=== PATIENT | male | born 1975 | race American Indian/Alaskan Native ===

== ENCOUNTER 2016-05-23 19:48 | Observation (INO) | payer OTHER ==
[2016-05-23 19:48] VITALS: BMI 37.2
[2016-05-23 20:16] VITALS: TEMP 97.5; O2SAT 95
[2016-05-23] MEDS ORDERED: HYDROmorphone 2 mg/ml ISec IVP STA ×2 (20:38→21:26)
[2016-05-23] MEDS ORDERED: Sodium Chloride 0.9% 1,000 ML IV STA (20:38)
--- NOTE | 2016-05-23 20:45 | ED PDOC ---
Arrival/HPI - General Chief Complaint: Abdominal Pain Time Seen by Provider: 05/23/16 20:30 Historian: Patient - History of Present Illness Narrative History of Present Illness (Text): 05/23/16 20:42 Patient is a 40 yo male with past medical history of autoimmune cholecystitis followed by specialists at [facility] previously on prednisone, presents to ED with history of sudden onset of diffuse abdominal pain last night , worse today associated with nausea and vomiting. Patient denies fever. Reports some loose stools. Denies chest pain or shortness of breath. Denies bloody urine or stool. Time/Duration: Prior to Arrival Symptom Onset: Gradual Past Medical History - Past History Past History: Non-Contributing - Infectious Disease Hx of Infectious Diseases: None - Tetanus Immunization Tetanus Immunization: Unknown - Reproductive Currently : No - Past Medical History Past Medical History: No Previous - Cardiac Hx Pacemaker: No - Pulmonary Hx Asthma: Yes - Neurological Hx Neurological Disorder: No - HEENT Hx HEENT Disorder: No - Renal Hx Renal Disorder: No - Endocrine/Metabolic Hx Endocrine Disorders: No Other/Comment: Inflammation of the pancreas and L side of the Liver - Hematological/Oncological Hx Anemia: Yes - Integumentary Hx Dermatological Disorder: No - Musculoskeletal/Rheumatological Hx Musculoskeletal Disorders: No Hx Falls: No - Gastrointestinal Hx Gall Bladder Disease: Yes (LAP ALTAGRACIA ON 06/06/15) Hx Pancreatitis: Yes Other/Comment: mass on the pancrease,liver disease - Genitourinary/Gynecological Hx Genitourinary Disorders: No - Psychiatric Hx Emotional Abuse: No Hx Physical Abuse: No Hx Substance Use: No - Past Surgical History Past Surgical History: No Previous - Surgical History Hx Cholecystectomy: Yes - Anesthesia Hx Anesthesia: Yes Hx Anesthesia Reactions: No Hx Malignant Hyperthermia: No - Suicidal Assessment Feels Threatened In Home Enviroment: No Family/Social History Family/Social History: Unknown Family HX Smoking Status: Never Smoked Hx Alcohol Use: No Hx Substance Use: No Hx Substance Use Treatment: No Allergies/Home Meds Allergies/Adverse Reactions: Allergies No Known Allergies Allergy (Verified 01/29/16 07:14) Home Medications: Home Meds Medication Instructions Recorded Confirmed Cholecalciferol (Vitamin D3) 50,000 iu PO SUN 04/28/15 01/29/16 [Vitamin D3] Ursodiol 300 mg PO BID 08/21/15 01/29/16 Prednisone [Gregorio] 5 mg PO DAILY 12/18/15 01/29/16 Azathioprine [Azasan] 50 mg PO DAILY 01/29/16 01/29/16 oxyCODONE [oxyCODONE Immediate 5 mg PO PRN PRN 01/29/16 01/29/16 Release Tab] Review of Systems - Review of Systems Constitutional: Fatigue. absent: Fevers Eyes: absent: Vision Changes Respiratory: absent: SOB Cardiovascular: absent: Chest Pain Gastrointestinal: Abdominal Pain, Diarrhea, Nausea, Vomiting, Appetite Changes. absent: Constipation, Hematochezia, Hematemesis Genitourinary Male: absent: Dysuria Musculoskeletal: absent: Back Pain Skin: absent: Rash Neurological: absent: Headache, Dizziness Endocrine: absent: Polyuria Hemo/Lymphatic: absent: Easy Bleeding Physical Exam Vital Signs Reviewed: Yes Vital Signs Temp Pulse Resp BP Pulse Ox 05/23/16 20:13 97.5 F L 119 H 18 163/96 H 95 Temperature: Afebrile Pulse: Tachycardic Pain Distress: Moderate Mental Status: Positive for: Alert and Oriented X 3 - Systems Exam Head: Present: Atraumatic Pupils: Present: PERRL Extroacular Muscles: Present: EOMI Mouth: Present: Moist Mucous Membranes Pharnyx: No: ERYTHEMA Nose (Internal): Present: Normal Inspection Neck: Present: Normal Range of Motion. No: Meningeal Signs Respiratory/Chest: Present: Clear to Auscultation. No: Respiratory Distress Cardiovascular: Present: Regular Rate and Rhythm Abdomen: Present: Tenderness, Distention. No: Peritoneal Signs Rectal: No: Gross Blood Back: No: CVA Tenderness Upper Extremity: No: Cyanosis, Edema Lower Extremity: No: Edema Neurological: Present: Motor Func Grossly Intact, Normal Sensory Function Skin: Present: Diaphoretic Psychiatric: Present: Alert Medical Decision Making ED Course and Treatment: 05/23/16 23:04 Patient's prior history and consultations reviewed. He states that he has not typically had vomiting like this in past. IV fluids, dialudid given. Pain persistent and persistent vomiting. Additional iv pain meds and zofran given with improved but persistent symptoms. Re-exam, persistent upper abdominal pain , given change in character and severity of pain from previous, ct ordered. Re-exam, heart rate is 98, patient more comfortable. Case endorsed to Dr. Carter pending ct and re-evaluation. - Lab Interpretations Lab Results: 05/23/16 20:50 05/23/16 20:50 Lab Results 05/23/16 20:50: WBC 8.5, RBC 4.76, Hgb 13.9 L, Hct 42.3, MCV 88.9, MCH 29.2, MCHC 32.9, RDW 14.4, Plt Count 313, MPV 9.5, Gran % 75.5 H, Lymph % (Auto) 19.1 L, [place] % (Auto) 5.1, Eos % (Auto) 0.2 L, Baso % (Auto) 0.1, Gran # 6.38, Lymph # 1.6, [place] # 0.4, Eos # 0.0, Baso # 0.01, PT 11.5, INR 1.06, APTT 27.0, pO2 33 , VBG pH 7.39, VBG pCO2 47.0, VBG HCO3 28.5 H, VBG Total CO2 29.9 H, VBG O2 Sat (Calc) 61.2, VBG Base Excess 2.8 H, VBG Potassium 3.8, Glucose 95, Lactate 1.1, FiO2 21.0, Sodium 140.0, Potassium 3.9, Chloride 105.0, Carbon Dioxide 29, Anion Gap 15, BUN 20, Creatinine 1.2, Est GFR ( Amer) > 60, Est GFR (Non- Af Amer) > 60, Random Glucose 102, Calcium 9.5, Total Bilirubin 1.1, AST 40, ALT 24, Alkaline Phosphatase 138 H, Lactate Dehydrogenase 586, Total Creatine Kinase 108, Troponin I < 0.01, Total Protein 8.9 H, Albumin 4.2, Globulin 4.7, Albumin/Globulin Ratio 0.9 L, Amylase 89, Lipase 85, Venous Blood Potassium 3.8 - RAD Interpretation Narrative RAD Interpretations (Text): 05/23/16 23:07 cxr nad Radiology Orders: 05/23/16 20:38 CHEST PORTABLE [RAD] Stat 05/23/16 21:26 ABD & PELVIS IV CONTRAST ONLY [CT] Stat Realtime Court Reporter: ED Physician - EKG Interpretation EKG Interpretation (Text): 05/23/16 23:06 EKG at 21:39 sinus tachycardia rate of 102 05/23/16 23:07 Interpreted by ED Physician: Yes Type: 12 lead EKG - Medication Orders Current Medication Orders: Discontinued Medications Famotidine (Pepcid) 20 mg IVP STAT STA Stop: 05/23/16 21:05 Last Admin: 05/23/16 21:14 Dose: 20 MG IVP Administration Document 05/23/16 21:14 RD (Rec: 05/23/16 21:14 RD [id number]) Charges for Administration # of IVP Administrations 1 Hydromorphone HCl (Dilaudid) 2 mg IVP STAT STA Stop: 05/23/16 20:39 Last Admin: 05/23/16 21:02 Dose: 2 MG IVP Administration Document 05/23/16 21:02 RD (Rec: 05/23/16 21:02 RD [id number]) Charges for Administration # of IVP Administrations 1 Hydromorphone HCl (Dilaudid) 2 mg IVP STAT STA Stop: 05/23/16 21:27 Last Admin: 05/23/16 22:44 Dose: 2 MG IVP Administration Document 05/23/16 22:44 RD (Rec: 05/23/16 22:44 RD [id number]) Charges for Administration # of IVP Administrations 1 Sodium Chloride (Sodium Chloride 0.9%) 1,000 mls @ 1,000 mls/hr IV .Q1H STA Stop: 05/23/16 21:37 Last Admin: 05/23/16 20:52 Dose: 1,000 MLS/HR eMAR Start Stop Document 05/23/16 20:52 RD (Rec: 05/23/16 20:52 RD [id number]) Intravenous Solution Start Date 05/23/16 Start Time 20:52 End Date 05/23/16 End time 21:52 Total Infusion Time 60 Iohexol (Omnipaque 350 100 Ml) Confirm Administered Dose 350 mg .ROUTE .STK-MED ONE Stop: 05/23/16 21:39 Ondansetron HCl (Zofran Inj) 4 mg IVP ONCE ONE Stop: 05/23/16 20:39 Last Admin: 05/23/16 21:03 Dose: Ondansetron HCl (Zofran Inj) Confirm Administered Dose 4 mg .ROUTE .STK-MED ONE Stop: 05/23/16 20:38 Last Admin: 05/23/16 20:52 Dose: 4 MG Ondansetron HCl (Zofran Inj) 4 mg IVP ONCE ONE Stop: 05/23/16 21:27 Last Admin: 05/23/16 21:30 Dose: 4 MG IVP Administration Document 05/23/16 21:30 RD (Rec: 05/23/16 21:30 RD [id number]) Charges for Administration # of IVP Administrations 1 Disposition/Present on Arrival - Present on Arrival Any Indicators Present on Arrival: No History of DVT/PE: No History of Uncontrolled Diabetes: No Urinary Catheter: No History of Decub. Ulcer: No History Surgical Site Infection Following: None - Disposition Have Diagnosis and Disposition been Completed?: Yes Diagnosis: Abdominal pain Disposition Time: 23:00 Patient Plan: Observation Patient Problems: Current Active Problems Problem Status Diagnosed Abdominal pain Acute Condition: FAIR Referrals: Jose Carson MD [Primary Care Provider] - Follow up with primary
[2016-05-23 21:06] LABS: ADD MANUAL DIFF? NO
[2016-05-23 21:13] LABS: VENOUS BLOOD GAS BASE EXCESS 2.8 mmol/L (0.0-2.0); VENOUS BLOOD PH 7.39 (7.32-7.43)
[2016-05-23 21:15] LABS: BASO # 0.01 K/mm3 (0.0-2.0); BASO % 0.1 % (0.0-3.0); EOS % 0.2 % (1.5-5.0); GRAN # 6.38 (1.4-6.5); GRAN % 75.5 % (50.0-68.0); HEMATOCRIT 42.3 % (42.0-52.0); LYMPH # 1.6 (1.2-3.4); LYMPH % 19.1 % (22.0-35.0); MEAN CELL VOLUME 88.9 fL (80.0-105.0); MEAN CORPUSCULAR HEMOGLOBIN 29.2 pg (25.0-35.0); MEAN CORPUSCULAR HGB CONC 32.9 g/dl (31.0-37.0); MEAN PLATELET VOLUME 9.5 fl (7.0-11.0); MONO # 0.4 (0.1-0.6); MONO % 5.1 % (1.0-6.0); PLATELET COUNT 313 10^3/uL (120.0-450.0); RED CELL DISTRIBUTION WIDTH 14.4 % (11.5-14.5); WHITE BLOOD COUNT 8.5 10^3/ul (4.5-11.0)
[2016-05-23 21:22] LABS: ALB/GLOB RATIO 0.9 (1.1-1.8); ALKALINE PHOSPHATASE 138 U/L (38-133); ALT/SGPT 24 U/L (7-56); AMYLASE 89 U/L (35-125); AST/SGOT 40 U/L (15-59); BILIRUBIN,TOTAL 1.1 mg/dL (0.2-1.3); BLOOD UREA NITROGEN 20 mg/dL (7-21); CALCIUM 9.5 mg/dL (8.4-10.5); CARBON DIOXIDE 29 mmol/L (21-33); CHLORIDE 99 mmol/L (98-107); GFR AFRICAN-AMERICAN > 60; GLUCOSE,RANDOM 102 mg/dL (70-110); LIPASE 85 U/L (23-300); POTASSIUM 3.9 mmol/L (3.6-5.0); SODIUM 139 mmol/L (132-148); TOTAL PROTEIN 8.9 g/dL (5.8-8.3)
[2016-05-23 21:23] LABS: INR 1.06 (0.93-1.08)
[2016-05-23 21:36] LABS: TROPONIN I < 0.01 ng/mL
[2016-05-23] MEDS ORDERED: Iohexol 350 MG/100 ML VIAL ONE (21:38)
[2016-05-24 00:03] VITALS: RESP 16
--- NOTE | 2016-05-24 02:49 | CT ---
EXAM: CT Abdomen and Pelvis With Intravenous Contrast CLINICAL HISTORY: 40 years old, male; Pain; Abdominal pain; Additional info: Severe diffuse abdominal pain TECHNIQUE: Axial computed tomography images of the abdomen and pelvis with intravenous contrast. This CT exam was performed using one or more of the following dose reduction techniques: automated exposure control, adjustment of the mA and/or kV according to patient size, and/or use of iterative reconstruction technique. Coronal and sagittal reformatted images were created and reviewed. CONTRAST: 100 mL of OMNIPAQUE administered intravenously. EXAM DATE/TIME: 05/23/2016 9:26 PM COMPARISON: Prior CT scans of 02/24/2016 and 09/04/2015. FINDINGS: LOWER THORAX: No infiltrate seen in the lung bases. ABDOMEN: LIVER: Abnormal enhancement pattern of the left lobe of the liver. There are branching areas of decreased enhancement throughout the left lobe of the liver, suspicious for periportal edema. There is a small amount of free fluid abutting the liver anteriorly. Liver has a mildly nodular contour, suspicious for cirrhotic change, and the portal vein is mildly enlarged, measuring 1.8 cm in diameter, findings which are suspicion for portal hypertension. No definite focal, measurable liver lesion is seen. Portal vein appears to be patent. GALLBLADDER AND BILE DUCTS: Cholecystectomy clips. Biliary ductal dilatation, which may be related to the post cholecystectomy state. No radiopaque common bile duct stones are visualized. Recommend correlation with LFTs as clinically indicated. PANCREAS: No CT evidence of acute pancreatitis. SPLEEN: No acute abnormality of the spleen identified. ADRENALS: No acute abnormality of the adrenal glands identified. KIDNEYS AND URETERS: No acute abnormality of the kidneys identified. No evidence of significant hydrouereteronephrosis. STOMACH AND BOWEL: Colon is fluid-filled, without evidence of significant wall thickening or dilatation. This finding can be seen in the setting of diarrhea. No acute abnormality of the stomach or duodenum identified. No evidence of small bowel obstruction. APPENDIX: Appendix is seen, and is within normal limits in appearance. PELVIS: BLADDER: No acute abnormality of the bladder identified. REPRODUCTIVE: No acute abnormality of the reproductive organs is seen. ABDOMEN and PELVIS: INTRAPERITONEAL SPACE: See above. No evidence of free air. Negative. BONES/JOINTS: No acute fractures or other acute bony abnormality noted. SOFT TISSUES: Fat-containing inguinal hernia on the left. Small umbilical hernia, containing only fat. VASCULATURE: No evidence of abdominal aortic aneurysm or dissection. LYMPH NODES: No evidence of diffuse lymphadenopathy. IMPRESSION: - Abnormal enhancement pattern in the left lobe of the liver, suspicious for focal periportal edema. There is a small amount of nearby perihepatic free fluid. In an acute setting, the findings could be secondary to acute hepatitis. Recommend correlation with LFTs for laboratory evidence of acute liver disease. There are also findings suspicious for underlying portal hypertension. - Biliary ductal dilatation, which may be related to the post cholecystectomy state. - See above for remaining findings.
[2016-05-24 04:11] VITALS: BP 152/98; PULSE 104
--- NOTE | 2016-05-24 05:41 | ED PDOC ---
Physical Exam Vital Signs Temp Pulse Resp BP Pulse Ox 05/24/16 04:10 104 H 16 152/98 H 95 05/24/16 00:02 115 H 16 148/92 H 95 05/23/16 20:13 97.5 F L 119 H 18 163/96 H 95 Medical Decision Making ED Course and Treatment: 05/23/16 23:15 Case signed out to me by Dr. Key, pending CT scan and reevaluation. - Lab Interpretations Lab Results: 05/23/16 20:50 05/23/16 20:50 Lab Results 05/23/16 20:50: WBC 8.5, RBC 4.76, Hgb 13.9 L, Hct 42.3, MCV 88.9, MCH 29.2, MCHC 32.9, RDW 14.4, Plt Count 313, MPV 9.5, Gran % 75.5 H, Lymph % (Auto) 19.1 L, [place] % (Auto) 5.1, Eos % (Auto) 0.2 L, Baso % (Auto) 0.1, Gran # 6.38, Lymph # 1.6, [place] # 0.4, Eos # 0.0, Baso # 0.01, PT 11.5, INR 1.06, APTT 27.0, pO2 33 , VBG pH 7.39, VBG pCO2 47.0, VBG HCO3 28.5 H, VBG Total CO2 29.9 H, VBG O2 Sat (Calc) 61.2, VBG Base Excess 2.8 H, VBG Potassium 3.8, Glucose 95, Lactate 1.1, FiO2 21.0, Sodium 140.0, Potassium 3.9, Chloride 105.0, Carbon Dioxide 29, Anion Gap 15, BUN 20, Creatinine 1.2, Est GFR ( Amer) > 60, Est GFR (Non- Af Amer) > 60, Random Glucose 102, Calcium 9.5, Total Bilirubin 1.1, AST 40, ALT 24, Alkaline Phosphatase 138 H, Lactate Dehydrogenase 586, Total Creatine Kinase 108, Troponin I < 0.01, Total Protein 8.9 H, Albumin 4.2, Globulin 4.7, Albumin/Globulin Ratio 0.9 L, Amylase 89, Lipase 85, Venous Blood Potassium 3.8 - RAD Interpretation Radiology Orders: 05/23/16 20:38 CHEST PORTABLE [RAD] Stat 05/23/16 21:26 ABD & PELVIS IV CONTRAST ONLY [CT] Stat - Medication Orders Current Medication Orders: Discontinued Medications Famotidine (Pepcid) 20 mg IVP STAT STA Stop: 05/23/16 21:05 Last Admin: 05/23/16 21:14 Dose: 20 MG IVP Administration Document 05/23/16 21:14 RD (Rec: 05/23/16 21:14 RD [id number]) Charges for Administration # of IVP Administrations 1 Hydromorphone HCl (Dilaudid) 2 mg IVP STAT STA Stop: 05/23/16 20:39 Last Admin: 05/23/16 21:02 Dose: 2 MG IVP Administration Document 05/23/16 21:02 RD (Rec: 05/23/16 21:02 RD [id number]) Charges for Administration # of IVP Administrations 1 Hydromorphone HCl (Dilaudid) 2 mg IVP STAT STA Stop: 05/23/16 21:27 Last Admin: 05/23/16 22:44 Dose: 2 MG IVP Administration Document 05/23/16 22:44 RD (Rec: 05/23/16 22:44 RD [id number]) Charges for Administration # of IVP Administrations 1 Sodium Chloride (Sodium Chloride 0.9%) 1,000 mls @ 1,000 mls/hr IV .Q1H STA Stop: 05/23/16 21:37 Last Admin: 05/23/16 20:52 Dose: 1,000 MLS/HR eMAR Start Stop Document 05/23/16 20:52 RD (Rec: 05/23/16 20:52 RD [id number]) Intravenous Solution Start Date 05/23/16 Start Time 20:52 End Date 05/23/16 End time 21:52 Total Infusion Time 60 Iohexol (Omnipaque 350 100 Ml) Confirm Administered Dose 350 mg .ROUTE .STK-MED ONE Stop: 05/23/16 21:39 Ondansetron HCl (Zofran Inj) 4 mg IVP ONCE ONE Stop: 05/23/16 20:39 Last Admin: 05/23/16 21:03 Dose: Ondansetron HCl (Zofran Inj) Confirm Administered Dose 4 mg .ROUTE .STK-MED ONE Stop: 05/23/16 20:38 Last Admin: 05/23/16 20:52 Dose: 4 MG Ondansetron HCl (Zofran Inj) 4 mg IVP ONCE ONE Stop: 05/23/16 21:27 Last Admin: 05/23/16 21:30 Dose: 4 MG IVP Administration Document 05/23/16 21:30 RD (Rec: 05/23/16 21:30 RD [id number]) Charges for Administration # of IVP Administrations 1 ED OBSERVATION Discharge: Yes Date of observation admission: 05/23/16 Time of observation admission: 23:25 - Observation admission statement Patient is being placed in observation because:: evaluation abdominal pain - Goals of Observation Goals of observation are:: determine cause and treatment of symptoms - Progress Note Progress Note: 05/24/16 06:51 Pt. remains asymptomatic.Will d/c for follow up outpatient . Disposition/Present on Arrival - Present on Arrival Any Indicators Present on Arrival: No History of DVT/PE: No History of Uncontrolled Diabetes: No Urinary Catheter: No History of Decub. Ulcer: No History Surgical Site Infection Following: None - Disposition Have Diagnosis and Disposition been Completed?: Yes Diagnosis: Abdominal pain, Gastroenteritis Disposition: HOME/ ROUTINE Disposition Time: 06:47 Patient Plan: Discharge Patient Problems: Current Active Problems Problem Status Diagnosed Abdominal pain Acute Gastroenteritis Acute Condition: FAIR Referrals: Jose Carson MD [Primary Care Provider] - Follow up with primary
--- NOTE | 2016-05-24 12:51 | CARD ---
APPROVED REPORT EKG Measurement Heart [id number] <Conclusion> Sinus tachycardia Voltage criteria for left ventricular hypertrophy Abnormal ECG
--- NOTE | 2016-05-24 13:18 | RAD ---
HISTORY: abdominal pain COMPARISON: No prior. FINDINGS: LUNGS: No active pulmonary disease. PLEURA: No significant pleural effusion identified, no pneumothorax apparent. CARDIOVASCULAR: Normal. OSSEOUS STRUCTURES: No significant abnormalities. VISUALIZED UPPER ABDOMEN: Normal. OTHER FINDINGS: None. IMPRESSION: No active disease.
== END 2016-05-24 06:52 | disposition home or self-care (01) ==
LOC: ED 19:48 → EROBSV 23:25
PROVIDERS: ADMIT Emergency Medicine; ATTEND Emergency Medicine
DX: K52.9 Noninfective gastroenteritis and colitis, unspecified (principal); R10.9 Unspecified abdominal pain
CPT/HCPCS: 71010; 74177; 80053; 82150; 82550; 82803; 83615; 83690; 84484; 85025; 85610; 85730; 93005; 96361; 96374; 96375; 96376; 99284; G0378; J1170; J2405; J7040; Q9967

== ENCOUNTER 2016-07-29 22:28 | Emergency (ER) | payer OTHER ==
[2016-07-29 22:37] VITALS: BMI 40.1
[2016-07-29 22:42] VITALS: TEMP 99
--- NOTE | 2016-07-29 22:55 | ED PDOC ---
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 Pt. stated that he feels abdominal distension with upper abdominal pain , feels nauseous but no vomiting, no headache or night sweat, no dizziness, no palpitation, no rash, no urinary symptoms, no other medical or psychological complaints. Past Medical History - Provider Review Nursing Documentation Reviewed: Yes - Past History Past History: Non-Contributing - Infectious Disease Hx of Infectious Diseases: None - Tetanus Immunization Tetanus Immunization: Unknown - Reproductive Currently : No - Past Medical History Past Medical History: No Previous - Cardiac Hx Pacemaker: No - Pulmonary Hx Asthma: Yes - Neurological Hx Neurological Disorder: No - HEENT Hx HEENT Disorder: No - Renal Hx Renal Disorder: No - Endocrine/Metabolic Hx Endocrine Disorders: No Other/Comment: Inflammation of the pancreas and L side of the Liver - Hematological/Oncological Hx Anemia: Yes - Integumentary Hx Dermatological Disorder: No - Musculoskeletal/Rheumatological Hx Musculoskeletal Disorders: No Hx Falls: No - Gastrointestinal Hx Gall Bladder Disease: Yes (LAP ALTAGRACIA ON 06/06/15) Hx Pancreatitis: Yes Other/Comment: mass on the pancrease,liver disease - Genitourinary/Gynecological Hx Genitourinary Disorders: No - Psychiatric Hx Emotional Abuse: No Hx Physical Abuse: No Hx Substance Use: No - Past Surgical History Past Surgical History: No Previous - Surgical History Hx Cholecystectomy: Yes - Anesthesia Hx Anesthesia: Yes Hx Anesthesia Reactions: No Hx Malignant Hyperthermia: No - Suicidal Assessment Feels Threatened In Home Enviroment: No Family/Social History - Physician Review Nursing Documentation Reviewed: Yes Family/Social History: Unknown Family HX Smoking Status: Never Smoked Hx Alcohol Use: No Hx Substance Use: No Hx Substance Use Treatment: No Allergies/Home Meds Allergies/Adverse Reactions: Allergies No Known Allergies Allergy (Verified 01/29/16 07:14) Home Medications: Home Meds Medication Instructions Recorded Confirmed Cholecalciferol (Vitamin D3) 50,000 iu PO SUN 04/28/15 07/29/16 [Vitamin D3] Ursodiol 300 mg PO BID 08/21/15 07/29/16 Prednisone [Gregorio] 5 mg PO DAILY 12/18/15 07/29/16 Azathioprine [Azasan] 50 mg PO DAILY 01/29/16 07/29/16 oxyCODONE [oxyCODONE Immediate 5 mg PO PRN PRN 01/29/16 07/29/16 Release Tab] Review of Systems - Review of Systems Constitutional: absent: Fatigue, Fevers Eyes: absent: Vision Changes ENT: absent: Hearing Changes Respiratory: absent: SOB, Cough Cardiovascular: absent: Chest Pain Gastrointestinal: Abdominal Pain, Nausea. absent: Diarrhea, Vomiting Musculoskeletal: absent: Arthralgias, Back Pain, Myalgias Skin: absent: Rash, Pruritis Neurological: absent: Headache, Dizziness Psychiatric: absent: Anxiety, Depression, Suicidal Ideation Physical Exam Vital Signs Reviewed: Yes Vital Signs Temp Pulse Resp BP Pulse Ox 07/30/16 03:00 92 H 16 121/79 95 07/29/16 22:37 99.0 F 117 H 18 128/76 99 Temperature: Afebrile Blood Pressure: Normal Pulse: Tachycardic Respiratory Rate: Normal Appearance: Positive for: Well-Appearing, Non-Toxic Pain Distress: Severe Mental Status: Positive for: Alert and Oriented X 3 - Systems Exam Head: Present: Atraumatic, Normocephalic Pupils: Present: PERRL Extroacular Muscles: Present: EOMI Conjunctiva: Present: Normal Mouth: Present: Moist Mucous Membranes Neck: Present: Normal Range of Motion Respiratory/Chest: Present: Clear to Auscultation, Good Air Exchange. No: Respiratory Distress, Accessory Muscle Use Cardiovascular: Present: Regular Rate and Rhythm, Normal S1, S2. No: Murmurs Abdomen: Present: Tenderness (+ttp on epigastric region), Distention, Normal Bowel Sounds. No: Peritoneal Signs Back: Present: Normal Inspection Upper Extremity: Present: Normal Inspection. No: Cyanosis, Edema Lower Extremity: Present: Normal Inspection. No: Edema Neurological: Present: GCS=15, Speech Normal, Motor Func Grossly Intact, Gait Normal, Memory Normal Skin: Present: Warm, Dry, Normal Color. No: Rashes Psychiatric: Present: Alert, Oriented x 3, Normal Insight, Normal Concentration Medical Decision Making ED Course and Treatment: 07/29/16 22:58 -labs/ua/lipase -ekg/chest x-ray -CT abdomen and pelvis -IVF/pepcid/zofran/dilaudid -Observe and reassess 07/30/16 01:57 -EKG: NSR @ 89 BPM, no ST elevation or depression, chronic T wave inversion on lead III, compared with previous ekg. -Chest xray show no active disease -CT abdomen and pelvis show progressed opacification of the distal portal vein when compared to previous CT abdomen/pelvis which I am clinically concerning about worsening of the occlusion of the hepatic vasculature including hepatic veins. I did expressed my concerns including labs/radiology studies to the patient which I advised him to be admitted to the hospital but he is refusing. -Labs are non-significant -Me and Dr. Melton advised admission for the patient for further evaluation/ treatment and consults by the specialists including hematology/oncology/GI/ vascular but the patient refused. Pt. feels better but want additional pain meds. -Pt. stated that he wants to sign out against medical advice. AMA ER The patient refuses to stay in the Emergency Room (ER) to continue the care and wishes to leave the emergency department against my medical advice. Patient was told that staying in the ER is necessary and a full explanation of the reasons why was given, and understood by the patient with alert and oriented x4. The risk of leaving were explained in laymans term and including but not limited to worsening of the hepatic portal vein and other blood vessels, stroke, Deep venous thrombosis, pulmonary embolism, organ failures, pain, worsening of condition, permanent disability and from an undiagnosed or untreated condition. The patient accepts these risks, and is in my judgment is competent and capable of understanding the clinical situation and explanation of the risk of leaving. Patient was given the opportunity to ask questions and change mind. The patient was instructed regarding the best care for the present symptoms, and to follow up as soon as possible with the primary care doctor including specialist or return to the emergency department at an y time for continuing care. YOU SIGN OUT AGAINST MEDICAL ADVICE. YOU CAN CONTINUE YOUR PAIN MEDICATIONS AT HOME. YOU WILL NEED TO FOLLOW UP WITH YOUR OWN PMD AND SPECIALISTS YOU HAVE BEEN FOLLOWING TODAY. YOU CAN RETURN TO THE ER FOR ANY CONTINUE OF THE CARE IF YOU WANT TO. 08/03/16 09:18 - Lab Interpretations Lab Results: 07/29/16 23:56 07/29/16 23:56 Lab Results 07/29/16 23:56: Sodium 140, Potassium 3.8, Chloride 101, Carbon Dioxide 31, Anion Gap 12, BUN 15, Creatinine 1.1, Est GFR ( Amer) > 60, Est GFR (Non- Af Amer) > 60, Random Glucose 90, Calcium 9.4, Total Bilirubin 0.4, AST 24, ALT 25, Alkaline Phosphatase 112, Lactate Dehydrogenase 411, Total Creatine Kinase 81, Troponin I < 0.01, Total Protein 8.0, Albumin 3.7, Globulin 4.4, Albumin/ Globulin Ratio 0.8 L, Lipase 123 07/29/16 23:56: WBC 10.5, RBC 4.28, Hgb 12.0 L, Hct 37.9 L, MCV 88.6, MCH 28.0, MCHC 31.7, RDW 14.5, Plt Count 340, MPV 9.1, Gran % 62.4, Lymph % (Auto) 28.3, [place] % (Auto) 8.0 H, Eos % (Auto) 1.0 L, Baso % (Auto) 0.3, Gran # 6.56 H, Lymph # 3.0, [place] # 0.8 H, Eos # 0.1, Baso # 0.03 I have reviewed the lab results: Yes Interpretation: No clinic. lab abnormalty - RAD Interpretation Radiology Orders: 07/29/16 22:56 ABD & PELVIS IV CONTRAST ONLY [CT] Stat CHEST PORTABLE [RAD] Stat Chest x-ray: no active disease ---- CT Abdomen and pelvis: FINDINGS: Abdomen pelvis: Basilar atelectasis. Post cholecystectomy. There is periportal edema in the left lobe of the liver. Some of the distal branches of the portal vein at the dome of the liver are not opacified. The main, right and left portal veins and superior mesenteric veins are widely patent. Unremarkable pancreas, spleen, adrenals and kidneys. Normal caliber aorta. There is no bowel obstruction. A normal-caliber appendix is identified. No free fluid or free air. IMPRESSION: There is periportal edema predominantly involving the dome of the left liver, with poor opacification of distal portal vein branches which may be occluded. This has progressed when compared with 05/24/16. Consider sonography with Doppler interrogation of the peripheral portal venous branches of the dome of the left lobe. Thank you for allowing us to participate in the care of your patient. Dictated and Authenticated by: Ana Geller MD 07/30/2016 1:50 AM Eastern Time ([place] & [place]) [employer] Helper: Radiologist - EKG Interpretation EKG Interpretation (Text): 07/30/16 00:58 NSR @ 89 BPM, no ST elevation or depression, chronic T wave inversion on lead III, compared with previous ekg. Interpreted by ED Physician: Yes Type: 12 lead EKG Comparison: Com.w/previous EKG - Medication Orders Current Medication Orders: Discontinued Medications Famotidine (Pepcid) 20 mg IVP STAT STA Stop: 07/29/16 22:57 Last Admin: 07/30/16 00:06 Dose: 20 mg Hydromorphone HCl (Dilaudid) 2 mg IVP STAT STA Stop: 07/29/16 22:57 Last Admin: 07/30/16 00:05 Dose: 2 mg Hydromorphone HCl (Dilaudid) 0.5 mg IVP STAT STA Stop: 07/30/16 02:06 Last Admin: 07/30/16 02:39 Dose: 0.5 mg Sodium Chloride (Sodium Chloride 0.9%) 1,000 mls @ 999 mls/hr IV .Q1H1M STA Stop: 07/29/16 23:56 Last Admin: 07/30/16 00:07 Dose: 999 mls/hr Iohexol (Omnipaque 350 100 Ml) Confirm Administered Dose 350 mg .ROUTE .STK-MED ONE Stop: 07/30/16 01:00 Ondansetron HCl (Zofran Inj) 4 mg IVP STAT STA Stop: 07/29/16 22:57 Last Admin: 07/30/16 00:06 Dose: 4 mg - PA / RN INTAKE / Resident Statement MD/DO has reviewed & agrees with the documentation as recorded. Disposition/Present on Arrival - Present on Arrival Any Indicators Present on Arrival: No History of DVT/PE: No History of Uncontrolled Diabetes: No Urinary Catheter: No History of Decub. Ulcer: No History Surgical Site Infection Following: None - Disposition Have Diagnosis and Disposition been Completed?: Yes Diagnosis: Abdominal pain, Non-compliance Disposition: AGAINST MEDICAL ADVICE Disposition Time: 02:12 Condition: STABLE Additional Instructions: YOU SIGN OUT AGAINST MEDICAL ADVICE. YOU CAN CONTINUE YOUR PAIN MEDICATIONS AT HOME. YOU WILL NEED TO FOLLOW UP WITH YOUR OWN PMD AND SPECIALISTS YOU HAVE BEEN FOLLOWING TODAY. YOU CAN RETURN TO THE ER FOR ANY CONTINUE OF THE CARE IF YOU WANT TO. Referrals: Jose Carson MD [Primary Care Provider] - Follow up with primary Cheo Chong DO [Staff Provider] - Follow up with primary Dutch GONZALEZ,MD Giovanni [Staff Provider] - Follow up with primary Forms: WORK NOTE
[2016-07-29] MEDS ORDERED: Sodium Chloride 0.9% 1,000 ML IV STA (22:56)
[2016-07-29] MEDS ORDERED: HYDROmorphone 2 mg/ml ISec IVP STA (22:56)
[2016-07-30 00:09] LABS: ADD MANUAL DIFF? NO
[2016-07-30 00:13] LABS: BASO # 0.03 K/mm3 (0.0-2.0); BASO % 0.3 % (0.0-3.0); EOS # 0.1 (0.0-0.7); GRAN # 6.56 (1.4-6.5); GRAN % 62.4 % (50.0-68.0); HEMATOCRIT 37.9 % (42.0-52.0); LYMPH % 28.3 % (22.0-35.0); MEAN CELL VOLUME 88.6 fL (80.0-105.0); MEAN CORPUSCULAR HGB CONC 31.7 g/dl (31.0-37.0); MEAN PLATELET VOLUME 9.1 fl (7.0-11.0); MONO # 0.8 (0.1-0.6); PLATELET COUNT 340 10^3/uL (120.0-450.0); RED CELL DISTRIBUTION WIDTH 14.5 % (11.5-14.5); WHITE BLOOD COUNT 10.5 10^3/ul (4.5-11.0)
[2016-07-30 00:27] LABS: ALB/GLOB RATIO 0.8 (1.1-1.8); ALKALINE PHOSPHATASE 112 U/L (38-133); ALT/SGPT 25 U/L (7-56); AST/SGOT 24 U/L (15-59); BILIRUBIN,TOTAL 0.4 mg/dL (0.2-1.3); BLOOD UREA NITROGEN 15 mg/dL (7-21); CALCIUM 9.4 mg/dL (8.4-10.5); CARBON DIOXIDE 31 mmol/L (21-33); CHLORIDE 101 mmol/L (98-107); GFR AFRICAN-AMERICAN > 60; GLUCOSE,RANDOM 90 mg/dL (70-110); LIPASE 123 U/L (23-300); POTASSIUM 3.8 mmol/L (3.6-5.0); SODIUM 140 mmol/L (132-148)
[2016-07-30 00:41] LABS: TROPONIN I < 0.01 ng/mL
[2016-07-30] MEDS ORDERED: Iohexol 350 MG/100 ML VIAL ONE (00:59)
[2016-07-30] MEDS ORDERED: HYDROmorphone 0.5 mg/0.5 ml ISec IVP STA (02:05)
[2016-07-30 03:01] VITALS: BP 121/79; PULSE 92; RESP 16; O2SAT 95
--- NOTE | 2016-07-30 08:29 | RAD ---
HISTORY: medical clearance COMPARISON: 05/23/2016 FINDINGS: LUNGS: As before low lung volumes are present. The relative prominence of the central pulmonary vasculature is in large part likely due to this. No change in appearance is perceived. No consolidation noted PLEURA: No significant pleural effusion identified, no pneumothorax apparent. The asymmetrically elevated right hemidiaphragm is similar. CARDIOVASCULAR: Probable top-normal sites. Pulmonary vasculature as above OSSEOUS STRUCTURES: No significant abnormalities. VISUALIZED UPPER ABDOMEN: Normal. OTHER FINDINGS: None. IMPRESSION: No interval pathology . Shallow lung volumes as before
--- NOTE | 2016-07-30 08:51 | CT ---
PROCEDURE: CT Abdomen and Pelvis with contrast HISTORY: upper abdominal pain on and off x 3 weeks COMPARISON: 05/24/2016 TECHNIQUE: Contrast dose: 100 cc of Omni 350 Radiation dose: Total exam DLP = 1446 mGy-cm. This CT exam was performed using one or more of the following dose reduction techniques: Automated exposure control, adjustment of the mA and/or kV according to patient size, and/or use of iterative reconstruction technique. FINDINGS: LOWER THORAX: Unremarkable. LIVER: There is periportal edema in the left lobe of the liver as well as a patchy enhancement pattern and the left lobe. Findings are suspicious for thrombosis of the distal portal branches in the left lobe. The pattern is similar to the previous study. The portal circulation in the right lobe is unremarkable. The main portal vein is patent. GALLBLADDER AND BILE DUCTS: Gallbladder removed PANCREAS: Unremarkable. No gross lesion or ductal dilatation. SPLEEN: Unremarkable. ADRENALS: Unremarkable. No mass. KIDNEYS AND URETERS: Unremarkable. No hydronephrosis. No solid mass. VASCULATURE: Unremarkable. No aortic aneurysm. BOWEL: Unremarkable. No obstruction. No gross mural thickening. APPENDIX: Normal appendix. PERITONEUM: Unremarkable. No free fluid. No free air. LYMPH NODES: Unremarkable. No enlarged lymph nodes. BLADDER: Unremarkable. REPRODUCTIVE: Unremarkable. BONES: No acute fracture. OTHER FINDINGS: The report concurs with the preliminary [facility] report IMPRESSION: Periportal edema in the left lobe of the liver suggestive of thrombosis of the distal branches of the portal vein. Doppler ultrasound followup may be indicated.
--- NOTE | 2016-07-30 15:15 | CARD ---
APPROVED REPORT EKG Measurement Heart [id number] <Conclusion> Normal sinus rhythm Normal ECG
== END 2016-07-30 03:01 | disposition left against medical advice (07) ==
LOC: ED 22:28
DX: R10.9 Unspecified abdominal pain (principal); Z91.19 Patient's noncompliance with other medical treatment and regimen; K85.90 Acute pancreatitis without necrosis or infection, unspecified
CPT/HCPCS: 71010; 74177; 80053; 82550; 83615; 83690; 84484; 85025; 93005; 96374; 96375; 96376; 99283; J1170; J2405; J7040; Q9967

== ENCOUNTER 2016-09-07 05:02 | Emergency (ER) | payer OTHER ==
[2016-09-07 05:28] VITALS: BMI 39.4
--- NOTE | 2016-09-07 05:37 | ED PDOC ---
Arrival/HPI - General Chief Complaint: Chest Pain Time Seen by Provider: 09/07/16 05:06 Historian: Patient - History of Present Illness Narrative History of Present Illness (Text): 09/07/16 05:37 Mateusz Cardenas is a 41 year old male, whose past medical history includes autoimmune cholecystitis/IgG stage IV cholangitis, liver cyst, and fatty liver, who presents to the ED complaining of mid/right-sided abdominal pain throughout tonight. Patient also reports associated chest pain. Patient denies fever, chills, shortness of breath, nausea, vomiting, urinary symptoms, back pain, neck pain, headache, dizziness, or any other complaints. Time/Duration: Other (today) Symptom Onset: Gradual Symptom Course: Unchanged Activities at Onset: Rest, Light Past Medical History - Provider Review Nursing Documentation Reviewed: Yes - Past History Past History: Non-Contributing - Infectious Disease Hx of Infectious Diseases: None - Tetanus Immunization Tetanus Immunization: Unknown - Reproductive Currently : No - Past Medical History Past Medical History: No Previous - Cardiac Hx Cardiac Disorders: No - Pulmonary Hx Respiratory Disorders: Yes Hx Asthma: Yes - Neurological Hx Neurological Disorder: No - HEENT Hx HEENT Disorder: No - Renal Hx Renal Disorder: No - Endocrine/Metabolic Hx Endocrine Disorders: No Other/Comment: Inflammation of the pancreas and L side of the Liver - Hematological/Oncological Hx Blood Disorders: Yes Hx Anemia: Yes - Integumentary Hx Dermatological Disorder: No - Musculoskeletal/Rheumatological Hx Musculoskeletal Disorders: No Hx Falls: No - Gastrointestinal Hx Gastrointestinal Disorders: Yes Hx Gall Bladder Disease: Yes (LAP ALTAGRACIA ON 06/06/15) Hx Pancreatitis: Yes Other/Comment: mass on the pancrease,liver disease - Genitourinary/Gynecological Hx Genitourinary Disorders: No - Psychiatric Hx Emotional Abuse: No Hx Physical Abuse: No Hx Substance Use: No - Past Surgical History Past Surgical History: No Previous - Surgical History Hx Cholecystectomy: Yes - Anesthesia Hx Anesthesia: Yes Hx Anesthesia Reactions: No Hx Malignant Hyperthermia: No - Suicidal Assessment Feels Threatened In Home Enviroment: No Family/Social History - Physician Review Nursing Documentation Reviewed: Yes Family/Social History: Unknown Family HX Smoking Status: Never Smoked Hx Alcohol Use: No Hx Substance Use: No Hx Substance Use Treatment: No Allergies/Home Meds Allergies/Adverse Reactions: Allergies No Known Allergies Allergy (Verified 01/29/16 07:14) Home Medications: Home Meds Medication Instructions Recorded Confirmed Cholecalciferol (Vitamin D3) 50,000 iu PO SUN 04/28/15 07/29/16 [Vitamin D3] Ursodiol 300 mg PO BID 08/21/15 07/29/16 Prednisone [Gregorio] 5 mg PO DAILY 12/18/15 07/29/16 Azathioprine [Azasan] 50 mg PO DAILY 01/29/16 07/29/16 oxyCODONE [oxyCODONE Immediate 5 mg PO PRN PRN 01/29/16 07/29/16 Release Tab] Review of Systems - Physician Review All systems were reviewed & negative as marked: Yes - Review of Systems Constitutional: Normal. absent: Fevers Eyes: Normal ENT: Normal Respiratory: Normal. absent: SOB, Cough Cardiovascular: Chest Pain. absent: Syncope Gastrointestinal: Abdominal Pain. absent: Diarrhea, Nausea, Vomiting Genitourinary Male: Normal. absent: Dysuria, Frequency, Hematuria, Urinary Output Changes Musculoskeletal: Normal. absent: Back Pain, Neck Pain Skin: Normal. absent: Rash Neurological: Normal. absent: Headache, Dizziness Endocrine: Normal Hemo/Lymphatic: Normal Psychiatric: Normal Physical Exam Vital Signs Reviewed: Yes Vital Signs Temp Pulse Resp BP Pulse Ox 09/07/16 05:21 97.3 F L 74 18 145/67 100 Temperature: Afebrile Blood Pressure: Normal Pulse: Regular Respiratory Rate: Normal Appearance: Positive for: Well-Appearing, Non-Toxic, Comfortable Pain Distress: None Mental Status: Positive for: Alert and Oriented X 3 - Systems Exam Head: Present: Atraumatic, Normocephalic Pupils: Present: PERRL Extroacular Muscles: Present: EOMI Conjunctiva: Present: Normal Mouth: Present: Moist Mucous Membranes Neck: Present: Normal Range of Motion Respiratory/Chest: Present: Clear to Auscultation, Good Air Exchange. No: Respiratory Distress, Accessory Muscle Use Cardiovascular: Present: Regular Rate and Rhythm, Normal S1, S2. No: Murmurs Abdomen: Present: Tenderness (Mid to right-sided abdominal tenderness), Normal Bowel Sounds. No: Distention, Peritoneal Signs Back: Present: Normal Inspection Upper Extremity: Present: Normal Inspection. No: Cyanosis, Edema Lower Extremity: Present: Normal Inspection. No: Edema Neurological: Present: GCS=15, CN II-XII Intact, Speech Normal Skin: Present: Warm, Dry, Normal Color. No: Rashes Psychiatric: Present: Alert, Oriented x 3, Normal Insight, Normal Concentration Medical Decision Making ED Course and Treatment: 09/07/16 05:37 Impression: 41 year old male c/o mid/right sided abdominal pain and chest pain throughout tonight. Plan: -- EKG -- CT Abdomen and Pelvis with PO/IV contrast -- Labs, lipase -- Morphine -- Reassess and disposition Progress Notes: Reviewed EKG, NSR at [address]-segment elevations or depressions, no T-wave inversions, normal intervals. 09/07/16 07:[address] Scott, pending labs, CT, re-assessment, and final disposition. - RAD Interpretation Radiology Orders: 09/07/16 05:55 ABD PELVIS PO & IV CONTRAST [CT] Stat - Medication Orders Current Medication Orders: Discontinued Medications Iohexol (Omnipaque 240 (50 Ml)) Confirm Administered Dose 50 ml .ROUTE .STK-MED ONE Stop: 09/07/16 06:15 Morphine Sulfate (Morphine) 4 mg IVP STAT STA Stop: 09/07/16 05:56 - Scribe Statement The provider has reviewed the documentation as recorded by the Scribe Sudha Parra All medical record entries made by the Scribe were at my direction and personally dictated by me. I have reviewed the chart and agree that the record accurately reflects my personal performance of the history, physical exam, medical decision making, and the department course for this patient. I have also personally directed, reviewed, and agree with the discharge instructions and disposition. Disposition/Present on Arrival - Present on Arrival Any Indicators Present on Arrival: No History of DVT/PE: No History of Uncontrolled Diabetes: No Urinary Catheter: No History of Decub. Ulcer: No History Surgical Site Infection Following: None - Disposition Have Diagnosis and Disposition been Completed?: No Diagnosis: Abdominal pain Disposition Time: 07:23 Condition: STABLE
[2016-09-07] MEDS ORDERED: Morphine 4 mg/ml ISec IVP STA (05:55)
[2016-09-07] MEDS ORDERED: Iohexol 240 (50 ml) ONE (06:14)
[2016-09-07 07:05] VITALS: TEMP 97.3
--- NOTE | 2016-09-07 07:47 | ED PDOC ---
Physical Exam Vital Signs Reviewed: Yes Vital Signs Temp Pulse Resp BP Pulse Ox 09/07/16 08:38 72 16 132/90 95 09/07/16 05:21 97.3 F L 74 18 145/67 100 Temperature: Afebrile Blood Pressure: Normal Pulse: Regular Respiratory Rate: Normal Appearance: Positive for: Well-Appearing, Non-Toxic, Comfortable Pain Distress: None Mental Status: Positive for: Alert and Oriented X 3 Medical Decision Making ED Course and Treatment: 09/07/16 07:47 Case signed out to me. Pending CT abdomen and pelvis, labs, reassessment and final disposition. 09/07/16 10:33 CT Abdomen and Pelvis with oral and IV contrast Creator : DR. Ascencio, Jaylyn Mauricio MD IMPRESSION: Again seen is periportal edema involving the left hepatic lobe is lacy patchy enhancement pattern. 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 Overall appearance similar prior study. Somewhat heterogeneous appearance of the right hepatic lobe as well. 5 mm fatty density at the pancreatic tail, possibly lipoma. Moderate constipation. Cholecystectomy. 16 mm fat containing umbilical hernia. Bowel is also noted within the hernia sac more inferiorly without evidence of obstruction. Fat containing partially imaged left inguinal hernia. Additional findings as above. - Lab Interpretations Lab Results: 09/07/16 07:25 09/07/16 08:00 Lab Results 09/07/16 08:00: Sodium 141, Potassium 3.6, Chloride 104, Carbon Dioxide 27, Anion Gap 14, BUN 18, Creatinine 1.0, Est GFR ( Amer) > 60, Est GFR (Non- Af Amer) > 60, Random Glucose 91, Calcium 9.2, Total Bilirubin 0.7, AST 19, ALT 19, Alkaline Phosphatase 122, Lactate Dehydrogenase 356, Total Creatine Kinase 73, Troponin I < 0.01, Total Protein 8.1, Albumin 3.6, Globulin 4.5, Albumin/ Globulin Ratio 0.8 L, Lipase 71 09/07/16 07:25: WBC 10.5, RBC 4.56, Hgb 12.4 L, Hct 39.3 L, MCV 86.2, MCH 27.2, MCHC 31.6, RDW 15.1 H, Plt Count 368, MPV 9.3 I have reviewed the lab results: Yes - RAD Interpretation Radiology Orders: 09/07/16 05:55 ABD PELVIS PO & IV CONTRAST [CT] Stat - Medication Orders Current Medication Orders: Discontinued Medications Iohexol (Omnipaque 240 (50 Ml)) Confirm Administered Dose 50 ml .ROUTE .STK-MED ONE Stop: 09/07/16 06:15 Iohexol (Omnipaque 350 150 Ml) Confirm Administered Dose 150 ml .ROUTE .STK-MED ONE Stop: 09/07/16 09:33 Morphine Sulfate (Morphine) 4 mg IVP STAT STA Stop: 09/07/16 05:56 Last Admin: 09/07/16 07:32 Dose: 4 mg - Scribe Statement The provider has reviewed the documentation as recorded by the Iliana Pierce Provider Scribe Attestation: All medical record entries made by the Scribe were at my direction and personally dictated by me. I have reviewed the chart and agree that the record accurately reflects my personal performance of the history, physical exam, medical decision making, and the department course for this patient. I have also personally directed, reviewed, and agree with the discharge instructions and disposition. Disposition/Present on Arrival - Present on Arrival Any Indicators Present on Arrival: No History of DVT/PE: No History of Uncontrolled Diabetes: No Urinary Catheter: No History of Decub. Ulcer: No History Surgical Site Infection Following: None - Disposition Have Diagnosis and Disposition been Completed?: Yes Diagnosis: Abdominal pain, Constipation Disposition: HOME/ ROUTINE Disposition Time: 10:50 Condition: GOOD Discharge Instructions (ExitCare): Constipation (ED) Additional Instructions: Thank you for letting us take care of you today. You were treated for abdominal pain and constipation. The emergency medical care you received today was directed at your acute symptoms. If you were prescribed any medication, please fill it and take as directed. It may take several days for your symptoms to resolve. Return to the Emergency Department if your symptoms worsen, do not improve, or if you have any other problems. Please contact your doctor or call one of the physicians/clinics you have been referred to that are listed on the Patient Visit Information form that is included in your discharge packet. Bring any paperwork you were given at discharge with you along with any medications you are taking to your follow up visit. Our treatment cannot replace ongoing medical care by a primary care provider (PCP) outside of the emergency department. Thank you for allowing the [facility] team to be part of your care today. Follow up with your doctor in 2-3 days for re-evaluation. Prescriptions: Docusate [Colace] 100 mg PO Q8 PRN #20 cap PRN Reason: Constipation [facility] - Follow up with primary Forms: WORK NOTE
[2016-09-07 07:50] LABS: HEMOGLOBIN 12.4 gm/dL (14.0-18.0); MEAN CELL VOLUME 86.2 fL (80.0-105.0); MEAN CORPUSCULAR HEMOGLOBIN 27.2 pg (25.0-35.0); MEAN CORPUSCULAR HGB CONC 31.6 g/dl (31.0-37.0); MEAN PLATELET VOLUME 9.3 fl (7.0-11.0); RBC 4.56 10^6/uL (3.5-6.1); RED CELL DISTRIBUTION WIDTH 15.1 % (11.5-14.5); WHITE BLOOD COUNT 10.5 10^3/ul (4.5-11.0)
[2016-09-07 08:31] LABS: ALB/GLOB RATIO 0.8 (1.1-1.8); ALBUMIN 3.6 g/dL (3.0-4.8); ALT/SGPT 19 U/L (7-56); AST/SGOT 19 U/L (15-59); BLOOD UREA NITROGEN 18 mg/dL (7-21); CALCIUM 9.2 mg/dL (8.4-10.5); GFR AFRICAN-AMERICAN > 60; GFR NON-AFRICAN AMERICAN > 60; LIPASE 71 U/L (23-300)
[2016-09-07 08:39] VITALS: RESP 16
[2016-09-07 08:55] LABS: TROPONIN I < 0.01 ng/mL
--- NOTE | 2016-09-07 10:20 | CARD ---
APPROVED REPORT EKG Measurement Heart [id number] <Conclusion> Normal sinus rhythm Moderate voltage criteria for LVH, may be normal variant Borderline ECG
--- NOTE | 2016-09-07 10:31 | CT ---
PROCEDURE: CT Abdomen and Pelvis with oral and IV contrast. HISTORY: abdominal pain COMPARISON: None available TECHNIQUE: Contiguous axial images of the abdomen and pelvis. Oral and IV contrast was administered. Coronal and Sagittal reformats generated and reviewed. Contrast dose: Omnipaque 350 Radiation dose: Total exam DLP = 1163.99 mGy-cm. This CT exam was performed using one or more of the following dose reduction techniques: Automated exposure control, adjustment of the mA and/or kV according to patient size, and/or use of iterative reconstruction technique. FINDINGS: LOWER THORAX: No visible consolidation, pleural effusion, or pneumothorax. Small hiatal hernia/distal esophageal wall thickening. LIVER: Again seen is periportal edema involving the left hepatic lobe is lacy patchy enhancement pattern. 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 Overall appearance similar prior study. Somewhat heterogeneous appearance of the right hepatic lobe as well. GALLBLADDER AND BILE DUCTS: Cholecystectomy. PANCREAS: 5 mm fatty density at the pancreatic tail, possibly lipoma. The pancreas appears otherwise unremarkable. SPLEEN: Unremarkable. ADRENALS: Unremarkable. KIDNEYS AND URETERS: The kidneys enhance symmetrically. No hydronephrosis or obstructing renal calculus. BLADDER: The urinary bladder appears unremarkable. REPRODUCTIVE: Unremarkable. APPENDIX: The appendix appears within normal limits of caliber. No secondary signs of acute appendicitis. BOWEL: The stomach is nondistended. The bowel loops appear within normal limits of caliber without evidence of intestinal obstruction. Moderate constipation. PERITONEUM: No significant free fluid. No definite free air. LYMPH NODES: Rosemary hepatis lymph node measuring up to 1.3 cm in short axis. There are additional prominent but sub cm upper abdominal and rosemary hepatis lymph nodes. VASCULATURE: No aortic aneurysm. BONES: No acute osseous abnormality is detected. OTHER FINDINGS: 16 mm fat containing umbilical hernia. Bowel is also noted within the hernia sac more inferiorly without evidence of obstruction. Fat containing partially imaged left inguinal hernia. IMPRESSION: Again seen is periportal edema involving the left hepatic lobe is lacy patchy enhancement pattern. 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 Overall appearance similar prior study. Somewhat heterogeneous appearance of the right hepatic lobe as well. 5 mm fatty density at the pancreatic tail, possibly lipoma. Moderate constipation. Cholecystectomy. 16 mm fat containing umbilical hernia. Bowel is also noted within the hernia sac more inferiorly without evidence of obstruction. Fat containing partially imaged left inguinal hernia. Additional findings as above.
[2016-09-07 10:53] VITALS: BP 150/96; PULSE 71; O2SAT 100
== END 2016-09-07 10:58 | disposition home or self-care (01) ==
LOC: ED 05:02
DX: K59.00 Constipation, unspecified (principal); R10.9 Unspecified abdominal pain; K83.0 Cholangitis; K76.89 Other specified diseases of liver
CPT/HCPCS: 74177; 80053; 82550; 83615; 83690; 84484; 85027; 93005; 96374; 99285; J2270; Q9966; Q9967

== ENCOUNTER 2016-10-14 17:10 | Emergency (ER) | payer OTHER ==
[2016-10-14 17:30] VITALS: BMI 39.5
[2016-10-14] MEDS ORDERED: Sodium Chloride 0.9% 1,000 ML IV STA ×2 (17:56→20:55)
[2016-10-14 19:24] LABS: BASO # 0.01 K/mm3 (0.0-2.0); BASO % 0.1 % (0.0-3.0); EOS # 0.1 (0.0-0.7); EOS % 0.7 % (1.5-5.0); GRAN # 9.75 (1.4-6.5); GRAN % 73.1 % (50.0-68.0); HEMATOCRIT 41.7 % (42.0-52.0); LYMPH # 2.2 (1.2-3.4); LYMPH % 16.7 % (22.0-35.0); MEAN CELL VOLUME 85.5 fl (80.0-105.0); MEAN CORPUSCULAR HEMOGLOBIN 27.9 pg (25.0-35.0); MEAN CORPUSCULAR HGB CONC 32.6 g/dl (31.0-37.0); MEAN PLATELET VOLUME 9.5 fl (7.0-11.0); MONO # 1.3 (0.1-0.6); MONO % 9.4 % (1.0-6.0); RED CELL DISTRIBUTION WIDTH 16.2 % (11.5-14.5); WHITE BLOOD COUNT 13.4 10^3/ul (4.5-11.0)
[2016-10-14 19:30] LABS: VENOUS BLOOD GAS BASE EXCESS 2.4 mmol/L (0.0-2.0)
[2016-10-14 19:32] LABS: ALB/GLOB RATIO 0.9 (1.1-1.8); ALKALINE PHOSPHATASE 138 U/L (38-133); ALT/SGPT 22 U/L (7-56); AST/SGOT 32 U/L (15-59); BLOOD UREA NITROGEN 21 mg/dL (7-21); CALCIUM 9.4 mg/dL (8.4-10.5); CARBON DIOXIDE 25 mmol/L (21-33); CHLORIDE 102 mmol/L (98-107); GFR AFRICAN-AMERICAN > 60; GLUCOSE,RANDOM 95 mg/dL (70-110); LIPASE 91 U/L (23-300); POTASSIUM 4.6 mmol/L (3.6-5.0); SODIUM 139 mmol/L (132-148); TOTAL PROTEIN 8.6 g/dL (5.8-8.3)
[2016-10-14] MEDS ORDERED: Iohexol 350 MG/100 ML VIAL ONE (20:49)
--- NOTE | 2016-10-14 21:23 | ED PDOC ---
Arrival/HPI - General Chief Complaint: Flu-like Symptoms Time Seen by Provider: 10/14/16 17:27 Historian: Patient - History of Present Illness Narrative History of Present Illness (Text): 10/14/16 21:07 41-year-old male presents today with body aches fevers chills and worsening abdominal pain. Patient states he thinks he can be related to the change in his medications. Patient states his doctor had him stop medications for his stomach. He is complaining of nausea no vomiting diarrhea or constipation. Denies chest pain or shortness of breath. He denies cough. Denies urinary symptoms. Denies dizziness. Patient states he took oxycodone for pain at home without improvement. Denies URI symptoms. No other complaints Past Medical History - Provider Review Nursing Documentation Reviewed: Yes - Travel History Have you recently traveled outside [place] w/in the past 3 mons?: No - Past History Past History: Non-Contributing - Infectious Disease Hx of Infectious Diseases: None - Tetanus Immunization Tetanus Immunization: Unknown - Reproductive Currently : No - Past Medical History Past Medical History: No Previous - Cardiac Hx Cardiac Disorders: No - Pulmonary Hx Respiratory Disorders: Yes Hx Asthma: Yes - Neurological Hx Neurological Disorder: No - HEENT Hx HEENT Disorder: No - Renal Hx Renal Disorder: No - Endocrine/Metabolic Hx Endocrine Disorders: No Other/Comment: Inflammation of the pancreas and L side of the Liver - Hematological/Oncological Hx Blood Disorders: Yes Hx Anemia: Yes - Integumentary Hx Dermatological Disorder: No - Musculoskeletal/Rheumatological Hx Musculoskeletal Disorders: No Hx Falls: No - Gastrointestinal Hx Gastrointestinal Disorders: Yes Hx Gall Bladder Disease: Yes (LAP ALTAGRACIA ON 06/06/15) Hx Pancreatitis: Yes Other/Comment: mass on the pancrease,liver disease - Genitourinary/Gynecological Hx Genitourinary Disorders: No - Psychiatric Hx Emotional Abuse: No Hx Physical Abuse: No Hx Substance Use: No - Past Surgical History Past Surgical History: No Previous - Surgical History Hx Cholecystectomy: Yes - Anesthesia Hx Anesthesia: Yes Hx Anesthesia Reactions: No Hx Malignant Hyperthermia: No - Suicidal Assessment Feels Threatened In Home Enviroment: No Family/Social History - Physician Review Nursing Documentation Reviewed: Yes Family/Social History: Unknown Family HX Smoking Status: Never Smoked Hx Alcohol Use: No Hx Substance Use: No Hx Substance Use Treatment: No Allergies/Home Meds Allergies/Adverse Reactions: Allergies No Known Allergies Allergy (Verified 01/29/16 07:14) Home Medications: Home Meds Medication Instructions Recorded Confirmed Ursodiol 300 mg PO BID 08/21/15 10/14/16 Prednisone [Gregorio] 5 mg PO DAILY 12/18/15 10/14/16 Review of Systems - Review of Systems Constitutional: Fevers. absent: Fatigue ENT: absent: Sinus Congestion Respiratory: absent: SOB, Cough Cardiovascular: absent: Chest Pain, Palpitations Gastrointestinal: Abdominal Pain. absent: Constipation, Diarrhea, Nausea, Vomiting Genitourinary Male: absent: Dysuria, Frequency, Hematuria, Urinary Output Changes Musculoskeletal: absent: Arthralgias, Back Pain, Neck Pain Skin: absent: Rash, Pruritis Neurological: Headache. absent: Dizziness Psychiatric: absent: Anxiety, Depression, Suicidal Ideation Physical Exam Vital Signs Reviewed: Yes Vital Signs Temp Pulse Resp BP Pulse Ox 10/15/16 01:19 99.0 F 18 97 10/15/16 01:17 99.0 F 99 H 18 117/88 97 10/14/16 23:11 119/65 10/14/16 22:13 105 H 15 101/63 94 L 10/14/16 21:53 111 H 18 88/53 L 98 10/14/16 20:47 100.0 F H 10/14/16 20:45 110 H 17 102/64 96 10/14/16 19:53 108 H 16 97 10/14/16 17:30 100.0 F H 120 H 18 95/57 L 97 Temperature: Febrile Blood Pressure: Hypotensive Pulse: Tachycardic Respiratory Rate: Normal Appearance: Positive for: Well-Appearing, Non-Toxic, Comfortable Pain Distress: None Mental Status: Positive for: Alert and Oriented X 3 - Systems Exam Head: Present: Atraumatic Mouth: Present: Moist Mucous Membranes Neck: Present: Normal Range of Motion Respiratory/Chest: Present: Clear to Auscultation, Good Air Exchange. No: Respiratory Distress, Accessory Muscle Use Cardiovascular: Present: Regular Rate and Rhythm, Normal S1, S2, Tachycardic. No: Murmurs Abdomen: Present: Tenderness (+ diffuse abdominal tenderness), Normal Bowel Sounds. No: Distention, Peritoneal Signs, Rebound, Guarding Back: Present: Normal Inspection. No: CVA Tenderness, Midline Tenderness Neurological: Present: GCS=15 Skin: Present: Warm, Dry, Normal Color. No: Rashes Psychiatric: Present: Alert, Oriented x 3 Medical Decision Making ED Course and Treatment: 10/15/16 01:11 Patient hypotensive, tachycardic, febrile with abdominal pain. resting comfortably. CBC wbc; 13.4 CMP elevated alk phos Lipase wnl Urinalysis PENDING CAT scan: FINDINGS: Lower thorax: The bilateral lung bases are clear. ABDOMEN: Liver: Patchy enhancement abnormality within the liver, similar in appearance to previous examination performed 09/07/2016. It these findings suggest abnormal portal venous flow. Persistent periportal edema, specifically within the left lobe, also unchanged. Gallbladder and bile ducts: The gallbladder is surgically absent. No significant intra- or extrahepatic biliary ductal dilation. 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 The pancreas otherwise enhances homogeneously. No ductal dilation. No discrete mass. Spleen: No acute findings. Adrenals: No acute findings. Kidneys and ureters: No acute findings. No hydronephrosis or renal calculi. No discrete solid mass. PELVIS: Bladder: No acute findings. Reproductive: No acute findings. Appendix: The air filled appendix is of normal caliber (series 2, image 152; series 601, image 72) . ABDOMEN and PELVIS: Stomach and bowel: No obstruction. No mucosal thickening. Fat containing bilateral inguinal hernias. Fat containing umbilical hernia. Infraumbilical small bowel containing nonobstructing hernia is also detected. Peritoneum: No significant fluid collection. No free air. Lymph nodes: Multiple minimally enlarged lymph nodes within the abdomen, specifically within the jennifer hepatis. Vasculature: Unremarkable. Bones: No acute fracture. IMPRESSION: Persistent periportal edema and patchy enhancement pattern within the liver, unchanged from prior examination, suggesting abnormal portal venous flow. Patient reassessment: feeling better. vitals improved. Patient is refusing antibiotics through the IV states he wants to go home. States he has an appointment with his doctor tomorrow. Patient states he feels better. Patient is refusing to wait for urine results to come back to try to find source of infection. I've discussed in depth with the patient my concern for sepsis and need for IV antibiotics and admission to the hospital. Patient states he does not want to stay in the hospital. Patient has been advised to not leave the emergency room but has decided to go AGAINST MEDICAL ADVICE. The patient possesses capacity to make decisions and has voiced understanding to all my warnings of potential worsening of the condition for which medical care was sought. I have discussed all known and potential risks and consequences to the patient leaving AGAINST MEDICAL ADVICE. Patient is leaving against medical advise. AMA form signed. witness by DAPHNE Ordonez. Impression: Abdominal pain, sepsis pt signed AMA. return if you wish to continue your care. - Lab Interpretations Lab Results: 10/14/16 19:11 10/14/16 19:11 Lab Results 10/15/16 01:05: Urine Color Dark yellow, Urine Appearance Clear, Urine pH 6.5, Ur Specific [place] 1.010, Urine Protein 30 H, Urine Glucose (UA) Negative, Urine Ketones Trace H, Urine Blood Negative, Urine Nitrate Negative, Urine Bilirubin Small H, Urine Urobilinogen 1.0 H, Ur Leukocyte Esterase Negative, Urine RBC 0 - 2, Urine WBC 0 - 2, Ur Epithelial Cells 1 - 3, Urine Other Mucus 10/14/16 19:11: WBC 13.4 H D, RBC 4.88, Hgb 13.6 L, Hct 41.7 L, MCV 85.5, MCH 27.9, MCHC 32.6, RDW 16.2 H, Plt Count 332, MPV 9.5, Gran % 73.1 H, Lymph % ( Auto) 16.7 L, [place] % (Auto) 9.4 H, Eos % (Auto) 0.7 L, Baso % (Auto) 0.1, Gran # 9.75 H, Lymph # 2.2, [place] # 1.3 H, Eos # 0.1, Baso # 0.01 10/14/16 19:11: Sodium 139, Chloride 102, Potassium 4.6, Carbon Dioxide 25, Anion Gap 17, BUN 21, Creatinine 1.0, Est GFR ( Amer) > 60, Est GFR (Non- Af Amer) > 60, Random Glucose 95, Calcium 9.4, Total Bilirubin 1.0, AST 32, ALT 22, Alkaline Phosphatase 138 H, Total Protein 8.6 H, Albumin 4.0, Globulin 4.6, Albumin/Globulin Ratio 0.9 L, Lipase 91 10/14/16 19:11: pO2 132 H, VBG pH 7.50 H, VBG pCO2 32.0 L, VBG HCO3 25.0, VBG Total CO2 26.0, VBG O2 Sat (Calc) 99.4 H, VBG Base Excess 2.4 H, VBG Potassium 4.2, Sodium 137.0, Chloride 104.0, Glucose 97, Lactate 1.0, FiO2 21.0, Venous Blood Potassium 4.2 - RAD Interpretation Radiology Orders: 10/14/16 18:04 ABD & PELVIS IV CONTRAST ONLY [CT] Stat CHEST PORTABLE [RAD] Stat - Medication Orders Current Medication Orders: Discontinued Medications Acetaminophen (Tylenol 325mg Tab) 650 mg PO STAT STA Stop: 10/14/16 18:18 Last Admin: 10/14/16 20:47 Dose: 650 mg Sodium Chloride (Sodium Chloride 0.9%) 1,000 mls @ 999 mls/hr IV .Q1H1M STA Stop: 10/14/16 18:56 Last Admin: 10/14/16 19:46 Dose: 999 mls/hr Sodium Chloride (Sodium Chloride 0.9%) 1,000 mls @ 999 mls/hr IV .Q1H1M STA Stop: 10/14/16 21:55 Iohexol (Omnipaque 350 100 Ml) Confirm Administered Dose 350 mg .ROUTE .STK-MED ONE Stop: 10/14/16 20:50 Ketorolac Tromethamine (Toradol) 30 mg IVP STAT STA Stop: 10/14/16 20:38 Last Admin: 10/14/16 20:46 Dose: 30 mg Ketorolac Tromethamine (Toradol) Confirm Administered Dose 30 mg .ROUTE .STK- MED ONE Stop: 10/14/16 20:39 Last Admin: 10/14/16 20:47 Dose: Disposition/Present on Arrival - Present on Arrival Any Indicators Present on Arrival: No History of DVT/PE: No History of Uncontrolled Diabetes: No Urinary Catheter: No History of Decub. Ulcer: No History Surgical Site Infection Following: None - Disposition Have Diagnosis and Disposition been Completed?: Yes Diagnosis: Sepsis, Abdominal pain Disposition: AGAINST MEDICAL ADVICE Disposition Time: 01:06 Condition: CRITICAL Discharge Instructions (ExitCare): Sepsis (ED) Additional Instructions: return if you wish to continue your care Referrals: Jose Carson MD [Primary Care Provider] - Follow up with primary Forms: [employer] (Turkish)
--- NOTE | 2016-10-15 00:08 | CT ---
EXAM: CT Abdomen and Pelvis With Intravenous Contrast CLINICAL HISTORY: 41 years old, male; Pain; Abdominal pain; Acute; Additional info: Abd pain TECHNIQUE: Axial computed tomography images of the abdomen and pelvis with intravenous contrast. All CT scans at this facility use one or more dose reduction techniques, viz.: automated exposure control; ma/kV adjustment per patient size (including targeted exams where dose is matched to indication; i.e. head); or iterative reconstruction technique. Coronal and sagittal reformatted images were created and reviewed. CONTRAST: 100 mL of OMNI 350 administered intravenously. COMPARISON: CT - ABD PELVIS PO IV CONTRAST 09/07/2016 9:32:59 AM FINDINGS: Lower thorax: The bilateral lung bases are clear. ABDOMEN: Liver: Patchy enhancement abnormality within the liver, similar in appearance to previous examination performed 09/07/2016. It these findings suggest abnormal portal venous flow. Persistent periportal edema, specifically within the left lobe, also unchanged. Gallbladder and bile ducts: The gallbladder is surgically absent. No significant intra- or extrahepatic biliary ductal dilation. 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 The pancreas otherwise enhances homogeneously. No ductal dilation. No discrete mass. Spleen: No acute findings. Adrenals: No acute findings. Kidneys and ureters: No acute findings. No hydronephrosis or renal calculi. No discrete solid mass. PELVIS: Bladder: No acute findings. Reproductive: No acute findings. Appendix: The air filled appendix is of normal caliber (series 2, image 152; series 601, image 72) . ABDOMEN and PELVIS: Stomach and bowel: No obstruction. No mucosal thickening. Fat containing bilateral inguinal hernias. Fat containing umbilical hernia. Infraumbilical small bowel containing nonobstructing hernia is also detected. Peritoneum: No significant fluid collection. No free air. Lymph nodes: Multiple minimally enlarged lymph nodes within the abdomen, specifically within the jennifer hepatis. Vasculature: Unremarkable. Bones: No acute fracture. IMPRESSION: Persistent periportal edema and patchy enhancement pattern within the liver, unchanged from prior examination, suggesting abnormal portal venous flow.
[2016-10-15 01:18] VITALS: BP 117/88; PULSE 99; RESP 18; TEMP 99; O2SAT 97
[2016-10-15 01:53] LABS: PH,URINE 6.5 (4.7-8.0); URINE BILIRUBIN SMALL (NEGATIVE); URINE BLOOD NEGATIVE (NEGATIVE); URINE GLUCOSE (UA) NEGATIVE (NEGATIVE); URINE KETONE TRACE mg/dL (NEGATIVE); URINE LEUKOCYTE ESTERASE NEGATIVE Leu/uL (NEGATIVE); URINE PROTEIN 30 mg/dL (<30 mg/dL)
[2016-10-15 01:56] LABS: URINE APPEARANCE CLEAR (CLEAR); URINE COLOR DARK YELLOW (YELLOW)
[2016-10-15 02:15] LABS: URINE RBC 0 - 2 /hpf (0-2); URINE WBC 0 - 2 /hpf (0-6)
--- NOTE | 2016-10-15 08:29 | RAD ---
HISTORY: abd pain COMPARISON: 07/30/2016 FINDINGS: LUNGS: No interval infiltrate. -an asymmetrically elevated right hemidiaphragm is present and suggested, albeit less pronounced, on the prior study. Slightly greater inspiration in left hemithorax is now noted. PLEURA: No significant pleural effusion identified, no pneumothorax apparent. CARDIOVASCULAR: Probable top-normal heart size. Mild central pulmonary venous congestion is possible - this finding is fairly similar to prior imaging. No cecilia pleural effusions OSSEOUS STRUCTURES: Thoraco lumbar spondylosis VISUALIZED UPPER ABDOMEN: Normal. OTHER FINDINGS: None. IMPRESSION: No interval infiltrate. Top-normal heart size. Possible mild pulmonary venous congestion -an age noted. Correlate clinically
== END 2016-10-15 01:20 | disposition left against medical advice (07) ==
LOC: ED 17:10
DX: A41.9 Sepsis, unspecified organism (principal); R10.9 Unspecified abdominal pain
CPT/HCPCS: 71010; 74177; 80053; 81001; 82803; 83690; 85025; 87040; 87086; 96374; 99285; J1885; J7040; Q9967

== ENCOUNTER 2016-12-02 07:57 | Observation (INO) | payer OTHER ==
[2016-12-02 08:00] VITALS: BMI 38.0
[2016-12-02] MEDS ORDERED: Morphine 2 mg/ml ISec IVP STA (08:38)
[2016-12-02] MEDS ORDERED: Sodium Chloride 0.9% 1,000 ML IV STA (08:38)
--- NOTE | 2016-12-02 08:40 | ED PDOC ---
Arrival/HPI <Rene Key - Last Filed: 12/02/16 10:11> - General Historian: Patient - History of Present Illness Time/Duration: Other (chronic) Symptom Course: Unchanged Quality: Throbbing Severity Level: Severe Activities at Onset: Rest Context: Home <Pancho Phillips - Last Filed: 12/02/16 11:54> - General Chief Complaint: Abdominal Pain Time Seen by Provider: 12/02/16 07:58 - History of Present Illness Narrative History of Present Illness (Text): 12/02/16 08:39 41yo M with PMH autoimmune cholecystitis s/p cholecystectomy and fatty liver who presents with abdominal pain that he states is chronic; states that his epigastric pain is different than prior times he's had it. he states that he pain is throbbing, but denies n/v/d, constipation, palpitations, diaphoresis, bowel changes or emesis. pt follows up for his autoimmune disorders at [facility] and has a liver doctor, GI doctor and a talent acquisition manager, as well Dr. Carson as PMD. (Pancho Phillips) Past Medical History - Provider Review Nursing Documentation Reviewed: Yes - Past History Past History: Non-Contributing - Infectious Disease Hx of Infectious Diseases: None - Tetanus Immunization Tetanus Immunization: Unknown - Reproductive Currently : No - Past Medical History Past Medical History: No Previous - Cardiac Hx Cardiac Disorders: No Hx Hypertension: No Hx Pacemaker: No - Pulmonary Hx Asthma: Yes - Neurological Hx Neurological Disorder: No - HEENT Hx HEENT Disorder: No - Renal Hx Renal Disorder: No - Endocrine/Metabolic Hx Endocrine Disorders: No Other/Comment: Inflammation of the pancreas and L side of the Liver - Hematological/Oncological Hx Anemia: Yes - Integumentary Hx Dermatological Disorder: No - Musculoskeletal/Rheumatological Hx Musculoskeletal Disorders: No - Gastrointestinal Hx Fatty Liver Disease: Yes Hx Gall Bladder Disease: Yes (LAP ALTAGRACIA ON 06/06/15) Hx Pancreatitis: Yes - Genitourinary/Gynecological Hx Genitourinary Disorders: No - Psychiatric Hx Substance Use: No - Past Surgical History Past Surgical History: No Previous - Surgical History Hx Cholecystectomy: Yes - Anesthesia Hx Anesthesia: Yes Hx Anesthesia Reactions: No Hx Malignant Hyperthermia: No - Suicidal Assessment Feels Threatened In Home Enviroment: No <Pancho Phillips - Last Filed: 12/02/16 11:54> Family/Social History - Physician Review Nursing Documentation Reviewed: Yes Family/Social History: No Known Family HX Smoking Status: Never Smoked Hx Alcohol Use: No Hx Substance Use: No Hx Substance Use Treatment: No <Pancho Phillips - Last Filed: 12/02/16 11:54> Allergies/Home Meds <Mikael Keykristy - Last Filed: 12/02/16 10:11> <Pancho Phillips - Last Filed: 12/02/16 11:54> Allergies/Adverse Reactions: Allergies No Known Allergies Allergy (Verified 11/06/16 09:07) Home Medications: Home Meds Medication Instructions Recorded Confirmed Ursodiol 300 mg PO BID 08/21/15 12/02/16 Prednisone [Gregorio] 5 mg PO DAILY 12/18/15 12/02/16 Calcium Carbonate/Vitamin D3 1 each PO BID 12/02/16 12/02/16 [Calcium 600 + Vit D Tablet] Cholecalciferol [Vitamin D] 50,000 iu PO 12/02/16 Cyclobenzaprine [Cyclobenzaprine 5 mg PO PRN 12/02/16 12/02/16 HCl] Dabigatran [Pradaxa] 150 mg PO DAILY 12/02/16 12/02/16 Famotidine [Pepcid] 20 mg PO DAILY 12/02/16 12/02/16 Omeprazole [Prilosec] 40 mg PO BID 12/02/16 12/02/16 Oxycodone HCl/Acetaminophen 5 mg PO PRN 12/02/16 12/02/16 [Endocet 325 mg-10 mg] Review of Systems - Physician Review All systems were reviewed & negative as marked: Yes - Review of Systems Constitutional: absent: Fevers Respiratory: absent: SOB, Cough Cardiovascular: absent: Chest Pain, Palpitations Gastrointestinal: Abdominal Pain. absent: Stool Changes, Constipation, Diarrhea , Nausea, Vomiting <Pancho Phillips - Last Filed: 12/02/16 11:54> Physical Exam Vital Signs Reviewed: Yes Appearance: Positive for: Well-Appearing Pain Distress: None Mental Status: Positive for: Alert and Oriented X 3 - Systems Exam Head: Present: Atraumatic, Normocephalic Pupils: Present: PERRL Extroacular Muscles: Present: EOMI Conjunctiva: Present: Normal Ears: Present: Normal Mouth: Present: Moist Mucous Membranes Neck: Present: Normal Range of Motion Respiratory/Chest: Present: Clear to Auscultation, Good Air Exchange Cardiovascular: Present: Normal S1, S2, Tachycardic. No: Murmurs, Rub, Gallop Abdomen: Present: Tenderness (diffuse, moderate to deep palpation), Normal Bowel Sounds, Hernias (umbilical), Other (obese habitus). No: Distention, Peritoneal Signs, Rebound, Guarding Back: Present: Normal Inspection Upper Extremity: Present: Normal Inspection Lower Extremity: Present: Normal Inspection, Normal ROM. No: Edema, CALF TENDERNESS Neurological: Present: Speech Normal, Motor Func Grossly Intact, Normal Sensory Function Skin: Present: Warm, Dry, Normal Color. No: Diaphoretic Psychiatric: Present: Alert, Oriented x 3 <Pancho Phillips - Last Filed: 12/02/16 11:54> Vital Signs Temp Pulse Resp BP Pulse Ox 12/02/16 10:33 96 H 18 150/95 H 97 12/02/16 07:57 98.7 F 102 H 18 143/96 H 98 Medical Decision Making - EKG Interpretation Interpreted by ED Physician: Yes Type: 12 lead EKG <Rene Key - Last Filed: 12/02/16 10:11> Re-evaluation Time: 10:30 Reassessment Condition: Re-examined, Improved - Lab Interpretations I have reviewed the lab results: Yes <Pancho Phillips - Last Filed: 12/02/16 11:54> ED Course and Treatment: 12/02/16 09:39 Patient seen and evaluated with medical education specialist. Treatment plan reviewed together. Patient reports chest discomfort with "pounding" since 7 pm last night. No associated pleuritic discomfort or shortness of breath. No calf pain or swelling. Patient on exam noted to have moderate epigastric pain on palpation. Recent CT abdomen/pelvis reviewed from prior visit, he reports abdominal pain as similar in character to this previous episode. Patient administered iv fluids, morphine, pecid with no relief in pain, still uncomfortable, mildly tachycardic. IV dilaudid ordered as patient on chronic pain medication. Patient reports cardiac stress test last "7 years ago". Reports family hx of CHF in father. (Rene Key) 12/02/16 09:05 Impression: 41yo M with autoimmune GI disease and multiple ED visits presents with diffuse abdominal pain (chronic) Plan: - Labs - Lipase/Amylase - Cardiac ISO - EKG - IVF - Pepcid - Morphine (Alan,Pancho) - Lab Interpretations Lab Results: 12/02/16 08:35 12/02/16 08:35 Lab Results 12/02/16 08:35: Sodium 141, Potassium 3.5 L, Chloride 102, Carbon Dioxide 27, Anion Gap 16, BUN 14, Creatinine 0.9, Est GFR ( Amer) > 60, Est GFR (Non- Af Amer) > 60, Random Glucose 93, Calcium 9.2, Phosphorus 3.2, Magnesium 1.9, Total Bilirubin 0.6, AST 22, ALT 20, Alkaline Phosphatase 142 H, Lactate Dehydrogenase 586, Total Creatine Kinase 57, Troponin I < 0.01, Total Protein 7.8, Albumin 3.8, Globulin 4.0, Albumin/Globulin Ratio 1.0 L, Amylase 69, Lipase 57 12/02/16 08:35: PT 12.8 H, INR 1.19 H 12/02/16 08:35: WBC 9.6, RBC 4.55, Hgb 12.0 L, Hct 38.4 L, MCV 84.4, MCH 26.4, MCHC 31.3, RDW 15.2 H, Plt Count 391, MPV 9.1, Gran % 61.1, Lymph % (Auto) 26.6 , [place] % (Auto) 10.3 H, Eos % (Auto) 1.8, Baso % (Auto) 0.2, Gran # 5.88, Lymph # 2.6, [place] # 1.0 H, Eos # 0.2, Baso # 0.02 - RAD Interpretation Radiology Orders: 12/02/16 08:36 CHEST PORTABLE [RAD] Stat - EKG Interpretation EKG Interpretation (Text): EKG at 0805 sinus tachycardia rate of 101 wtih minimal voltage criteria for LVH (Rene Key) - Medication Orders Current Medication Orders: Discontinued Medications Famotidine (Pepcid) 20 mg IVP STAT STA Stop: 12/02/16 08:49 Last Admin: 12/02/16 09:31 Dose: 20 mg IVP Administration Document 12/02/16 09:31 [facility] (Rec: 12/02/16 09:34 [facility] [id number]) Charges for Administration # of IVP Administrations 1 Hydromorphone HCl (Dilaudid) 2 mg IVP STAT STA Stop: 12/02/16 09:32 Last Admin: 12/02/16 09:40 Dose: 2 mg MAR Pain Assessment Document 12/02/16 09:40 [facility] (Rec: 12/02/16 09:42 [facility] [id number]) Pain Reassessment Is this a pain reassessment? Yes Presence of Pain Presence of Pain Yes IVP Administration Document 12/02/16 09:40 [facility] (Rec: 12/02/16 09:42 [facility] [id number]) Charges for Administration # of IVP Administrations 1 Sodium Chloride (Sodium Chloride 0.9%) 1,000 mls @ 999 mls/hr IV .Q1H1M STA Stop: 12/02/16 09:38 Last Admin: 12/02/16 08:51 Dose: 999 mls/hr eMAR Start Stop Document 12/02/16 08:51 [facility] (Rec: 12/02/16 08:51 [facility] [id number]) Intravenous Solution Start Date 12/02/16 Start Time 08:51 End Date 12/02/16 End time 09:51 Total Infusion Time 60 Morphine Sulfate (Morphine) 2 mg IVP STAT STA Stop: 12/02/16 08:39 Last Admin: 12/02/16 08:49 Dose: 2 mg MAR Pain Assessment Document 12/02/16 08:49 [facility] (Rec: 12/02/16 08:49 [facility] [id number]) Pain Reassessment Is this a pain reassessment? No IVP Administration Document 12/02/16 08:49 [facility] (Rec: 12/02/16 08:49 [facility] [id number]) Charges for Administration # of IVP Administrations 1 Re-Assess: MAR Pain Assessment Document 12/02/16 09:49 [employer] PERFORMANCE [employer]INE[employer] (Rec: 12/02/16 10:33 [facility] [id number]) Pain Reassessment Is this a pain reassessment? Yes Presence of Pain Presence of Pain No Disposition/Present on Arrival <Rene Key - Last Filed: 12/02/16 10:11> - Present on Arrival Any Indicators Present on Arrival: No History of DVT/PE: No History of Uncontrolled Diabetes: No Urinary Catheter: No History of Decub. Ulcer: No History Surgical Site Infection Following: None - Disposition Have Diagnosis and Disposition been Completed?: Yes Disposition Time: 11:45 Patient Plan: Observation <Pancho Phillips - Last Filed: 12/02/16 11:54> - Disposition Diagnosis: Abdominal pain, Chronic abdominal pain Disposition: HOSPITALIZED Patient Problems: Current Active Problems Problem Status Onset Abdominal pain Acute Chronic abdominal pain Acute Condition: FAIR
[2016-12-02 08:51] LABS: BASO # 0.02 K/mm3 (0.0-2.0); BASO % 0.2 % (0.0-3.0); EOS # 0.2 (0.0-0.7); EOS % 1.8 % (1.5-5.0); GRAN # 5.88 (1.4-6.5); GRAN % 61.1 % (50.0-68.0); HEMATOCRIT 38.4 % (42.0-52.0); LYMPH # 2.6 (1.2-3.4); LYMPH % 26.6 % (22.0-35.0); MEAN CELL VOLUME 84.4 fl (80.0-105.0); MEAN CORPUSCULAR HEMOGLOBIN 26.4 pg (25.0-35.0); MEAN CORPUSCULAR HGB CONC 31.3 g/dl (31.0-37.0); MEAN PLATELET VOLUME 9.1 fl (7.0-11.0); MONO % 10.3 % (1.0-6.0); RED CELL DISTRIBUTION WIDTH 15.2 % (11.5-14.5); WHITE BLOOD COUNT 9.6 10^3/ul (4.5-11.0)
[2016-12-02 09:01] LABS: INR 1.19 (0.93-1.08)
[2016-12-02 09:02] LABS: ALKALINE PHOSPHATASE 142 U/L (38-126); ALT/SGPT 20 U/L (7-56); AMYLASE 69 U/L (35-125); AST/SGOT 22 U/L (17-59); BILIRUBIN,TOTAL 0.6 mg/dL (0.2-1.3); BLOOD UREA NITROGEN 14 mg/dL (7-21); CALCIUM 9.2 mg/dL (8.4-10.5); CARBON DIOXIDE 27 mmol/L (21-33); CHLORIDE 102 mmol/L (98-107); GFR AFRICAN-AMERICAN > 60; GLUCOSE,RANDOM 93 mg/dL (70-110); LIPASE 57 U/L (23-300); MAGNESIUM 1.9 mg/dL (1.7-2.2); PHOSPHOROUS 3.2 mg/dL (2.5-4.5); POTASSIUM 3.5 mmol/L (3.6-5.0); SODIUM 141 mmol/L (132-148); TOTAL PROTEIN 7.8 g/dL (5.8-8.3)
--- NOTE | 2016-12-02 09:06 | RAD ---
HISTORY: c/o chest pain COMPARISON: 10/14/2016 FINDINGS: LUNGS: The lungs are well inflated. There is right basilar atelectasis. No focal consolidation. PLEURA: No significant pleural effusion identified, no pneumothorax apparent. CARDIOVASCULAR: Normal. OSSEOUS STRUCTURES: No significant abnormalities. VISUALIZED UPPER ABDOMEN: Normal. OTHER FINDINGS: None. IMPRESSION: Right basilar atelectasis. No active pulmonary disease.
[2016-12-02 09:13] LABS: TROPONIN I < 0.01 ng/mL
[2016-12-02] MEDS ORDERED: HYDROmorphone 2 mg/ml ISec IVP STA (09:31)
--- NOTE | 2016-12-02 11:34 | CP.PCM.HP ---
Past Patient History - Infectious Disease Hx of Infectious Diseases: None - Tetanus Immunizations Tetanus Immunization: Unknown - Past Social History Smoking Status: Never Smoked - CARDIAC Hx Cardiac Disorders: No Hx Hypertension: No Hx Pacemaker: No - PULMONARY Hx Asthma: Yes - NEUROLOGICAL Hx Neurological Disorder: No - HEENT Hx HEENT Problems: No - RENAL Hx Chronic Kidney Disease: No - ENDOCRINE/METABOLIC Hx Endocrine Disorders: No Other/Comment: Inflammation of the pancreas and L side of the Liver - HEMATOLOGICAL/ONCOLOGICAL Hx Anemia: Yes - INTEGUMENTARY Hx Dermatological Problems: No - MUSCULOSKELETAL/RHEUMATOLOGICAL Hx Musculoskeletal Disorders: No - GASTROINTESTINAL Hx Fatty Liver Disease: Yes Hx Gall Bladder Disease: Yes (LAP ALTAGRACIA ON 06/06/15) Hx Pancreatitis: Yes - GENITOURINARY/GYNECOLOGICAL Hx Genitourinary Disorders: No - PSYCHIATRIC Hx Substance Use: No - SURGICAL HISTORY Hx Cholecystectomy: Yes - ANESTHESIA Hx Anesthesia: Yes Hx Anesthesia Reactions: No Hx Malignant Hyperthermia: No Meds Allergies/Adverse Reactions: Allergies Allergy/AdvReac Type Severity Reaction Status Date / Time No Known Allergies Allergy Verified 11/06/16 09:07 Results - Vital Signs Recent Vital Signs: Last Vital Signs Temp 98.7 F 12/02/16 07:57 Pulse 96 H 12/02/16 10:33 Resp 18 12/02/16 10:33 BP 150/95 H 12/02/16 10:33 Pulse Ox 97 12/02/16 10:33 - Labs Result Diagrams: 12/02/16 08:35 12/02/16 08:35 Labs: Laboratory Results - last 24 hr 12/02/16 12/02/16 12/02/16 08:35 08:35 08:35 WBC 9.6 RBC 4.55 Hgb 12.0 L Hct 38.4 L MCV 84.4 MCH 26.4 MCHC 31.3 RDW 15.2 H Plt Count 391 MPV 9.1 Gran % 61.1 Lymph % (Auto) 26.6 [place] % (Auto) 10.3 H Eos % (Auto) 1.8 Baso % (Auto) 0.2 Gran # 5.88 Lymph # 2.6 [place] # 1.0 H Eos # 0.2 Baso # 0.02 PT 12.8 H INR 1.19 H Sodium 141 Potassium 3.5 L Chloride 102 Carbon Dioxide 27 Anion Gap 16 BUN 14 Creatinine 0.9 Est GFR ( Amer) > 60 Est GFR (Non-Af Amer) > 60 Random Glucose 93 Calcium 9.2 Phosphorus 3.2 Magnesium 1.9 Total Bilirubin 0.6 AST 22 ALT 20 Alkaline Phosphatase 142 H Lactate Dehydrogenase 586 Total Creatine Kinase 57 Troponin I < 0.01 Total Protein 7.8 Albumin 3.8 Globulin 4.0 Albumin/Globulin Ratio 1.0 L Amylase 69 Lipase 57
[2016-12-02] MEDS ORDERED: Pneumococcal 23-Valent Vaccine IM ONE (14:03)
[2016-12-02] MEDS: HYDROmorphone 0.5 mg/0.5 ml ISec IVP PRN ×2 (16:33→21:37)
[2016-12-02 18:05] VITALS: RESP 20
[2016-12-02] MEDS: VITAMIN D3 PO SCH (18:13)
[2016-12-02] MEDS: [UNRECOGNIZED DRUG - OTHER] PO SCH (18:13)
[2016-12-02] MEDS: CALCIUM CARBONATE PO SCH (18:13)
[2016-12-02] MEDS: Potassium Chloride 20 mEq ER Tab PO SCH ×2 (20:43→21:38)
--- NOTE | 2016-12-02 20:49 | US ---
EXAM: US Abdomen Limited EXAM DATE/TIME: 12/02/2016 12:21 PM CLINICAL HISTORY: 41 years old, male; Pain; Abdominal pain; Additional info: Abd pain TECHNIQUE: Real-time ultrasound of the abdomen with image documentation. COMPARISON: Prior abdominal ultrasound of 05/27/2015 FINDINGS: Limitations: Overall suboptimal visualization, due to bowel gas and the patient's body habitus. Gallbladder: Surgically removed. Common bile duct: At the upper limits of normal in size, measuring 5.8 mm (normal less than 6 mm). Liver: Demonstrates increased parenchymal echogenicity, most compatible with fatty infiltration. Otherwise within normal limits in appearance. Measures 15.4 cm in length. Normal flow seen in the main portal vein on color and Doppler imaging. Pancreas: Obscured by gas. Right kidney: Within normal limits in appearance. Measures 10.2 cm in length. No evidence of hydronephrosis. Left kidney: Within normal limits in appearance. Measures 10.1 cm in length. No evidence of hydronephrosis. Spleen: Incompletely seen due to gas. Normal in size, measuring 10.7 cm in length. Aorta: Could not be visualized, due to bowel gas. IVC: Could not be visualized, due to bowel gas. IMPRESSION: Common bile duct is top normal in size, which may be secondary to the postcholecystectomy state. Consider correlation with LFTs for laboratory evidence of biliary obstruction. Fatty infiltration of the liver. No other abnormality seen. Exam is limited, however, due to bowel gas and the patient's body habitus. See above for remaining findings.
[2016-12-02 21:27] LABS: PH,URINE 7.5 (4.7-8.0); URINE BILIRUBIN NEGATIVE (NEGATIVE); URINE BLOOD NEGATIVE (NEGATIVE); URINE GLUCOSE (UA) NEGATIVE (NEGATIVE); URINE KETONE NEGATIVE (NEGATIVE); URINE LEUKOCYTE ESTERASE NEGATIVE Leu/uL (NEGATIVE); URINE PROTEIN NEGATIVE mg/dL (<30 mg/dL); URINE UROBILINOGEN 0.2 E.U./dL (<1 E.U./dL)
[2016-12-02 21:34] LABS: URINE APPEARANCE CLEAR (CLEAR); URINE COLOR YELLOW (YELLOW)
[2016-12-03 06:03] VITALS: O2SAT 99
[2016-12-03] MEDS: HYDROmorphone 0.5 mg/0.5 ml ISec IVP PRN ×2 (06:12→11:57)
[2016-12-03 06:13] LABS: BASO # 0.01 K/mm3 (0.0-2.0); BASO % 0.1 % (0.0-3.0); EOS # 0.1 (0.0-0.7); EOS % 1.6 % (1.5-5.0); GRAN # 5.41 (1.4-6.5); GRAN % 66.5 % (50.0-68.0); HEMATOCRIT 38.9 % (42.0-52.0); LYMPH # 1.7 (1.2-3.4); LYMPH % 21.4 % (22.0-35.0); MEAN CELL VOLUME 83.5 fl (80.0-105.0); MEAN CORPUSCULAR HEMOGLOBIN 26.2 pg (25.0-35.0); MEAN CORPUSCULAR HGB CONC 31.4 g/dl (31.0-37.0); MEAN PLATELET VOLUME 9.2 fl (7.0-11.0); MONO # 0.9 (0.1-0.6); MONO % 10.4 % (1.0-6.0); RED CELL DISTRIBUTION WIDTH 15.1 % (11.5-14.5); WHITE BLOOD COUNT 8.1 10^3/ul (4.5-11.0)
[2016-12-03 06:33] LABS: ALB/GLOB RATIO 0.9 (1.1-1.8); ALKALINE PHOSPHATASE 156 U/L (38-126); ALT/SGPT 21 U/L (7-56); AST/SGOT 26 U/L (17-59); BILIRUBIN,DIRECT 0.4 mg/dL (0.0-0.4); BILIRUBIN,TOTAL 0.8 mg/dL (0.2-1.3); BLOOD UREA NITROGEN 9 mg/dL (7-21); CALCIUM 9.6 mg/dL (8.4-10.5); CARBON DIOXIDE 26 mmol/L (21-33); CHLORIDE 104 mmol/L (98-107); CHOLESTEROL 152 mg/dL (130-200); GFR AFRICAN-AMERICAN > 60; GLUCOSE,RANDOM 99 mg/dL (70-110); MAGNESIUM 2.1 mg/dL (1.7-2.2); PHOSPHOROUS 4.3 mg/dL (2.5-4.5); POTASSIUM 4.3 mmol/L (3.6-5.0); SODIUM 140 mmol/L (132-148)
[2016-12-03 06:52] LABS: FREE T4 0.96 ng/dL (0.78-2.19); T4 7.9 ug/dL (5.5-11.0)
[2016-12-03 07:05] LABS: THYROID STIMULATING HORMONE 0.66 mIU/mL (0.46-4.68)
--- NOTE | 2016-12-03 08:19 | HP ---
HISTORY OF PRESENT ILLNESS: The patient is a 41-year-old obese male who has been very noncompliant with his office visits and has not followed up for more than last 6 months, has had multiple ER visits in last year or two and has been seen multiple times in the ER for chronic and recurrent abdominal pain, chest pain, abdominal pain, for multiple reason has not followed up in the office for almost 6 months and has not been regularly followed up. The patient presented to the emergency room today. According to the triage note in the morning hours, the patient was brought to the emergency room by [facility] complaining of abdominal, chest pain since last night. According to the ER physician evaluation, the patient presented with epigastric pain, chest pain, throbbing pain in the retrosternal precordial area without any radiation. REVIEW OF SYSTEMS; Thirteen system review was positive and pertinent for above. CODE STATUS: Full code. LIVING WILL/ADVANCE DIRECTIVE: None. ALLERGIES: NONE. Height is 5 feet 8 inches. Weight is 250. BMI is 38. HOME MEDICATIONS: Vitamin D 2000 units daily, ursodiol 300 mg twice a day, tramadol 50 mg q. 8, prednisone 5 mg daily, Prilosec 40 mg twice a day, Pradaxa 150 mg daily, Pepcid 20 mg daily, omeprazole 40 mg daily, Motrin 600 mg p.r.n., Flexeril 5 mg p.r.n., Percocet 10/325 p.r.n., vitamin D with calcium twice a day. PAST SOCIAL HISTORY: Denies smoking. Denies alcohol. Denies drug use. Denies communicable transmissible disease. 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 The patient's past medical history is significant for history of hypovitaminosis D, history of chronic pain syndrome. The patient's past medical history is also significant for recurrent abdominal pain, history of leukocytosis, history of poor compliance, history of normocytic anemia, history of transaminitis, history of elevated C-reactive protein, history of hypertriglyceridemia and dyslipidemia, history of mild hyperhomocystinemia, history of testosterone deficiency. History of multiple abdominal CAT scan and CT done. History of decreased attenuation of the tail of the pancreas, history of bilateral fat-containing inguinal hernia, history of minimal lymphadenopathy of the abdomen and the jennifer hepatis lymphadenopathy. The patient's past medical history is significant for history of hepatomegaly, history of dilated common bile duct, history of dilated proximal pancreatic duct, history of ascites. The patient's past medical history is significant for history of chronic gastritis. The patient's past medical history is significant for IgG4 related cholangitis. The patient at present is being followed by [facility] Gastroenterology department for his cholangitis. History of hepatic inflammatory fibrous closing lesion history of chronic gastritis, history of colonoscopy, history of hepatomegaly, history of gastrohepatic lymphadenopathy. The patient's past medical history is also significant for internal hemorrhoids on colonoscopy done in 2015, history of attempted ERCP done in 2014, history of subcarinal mediastinal lymphadenopathy, abnormal pancreatic parenchyma lobularity. PHYSICAL EXAMINATION: GENERAL: The patient was seen in stretcher #5 in the emergency room. The patient is lying in the bed watching TV. VITAL SIGNS: T-max 98.7. Telemetry shows heart rate sinus rhythm in 80s, initial heart rate was 102 and 106, blood pressure 143/96, 150/95, 140/86, respiration 18, O2 sat 97% to 98%. HEAD: The patient's head examination normocephalic, atraumatic. EENT: Examination shows pinkish pale conjunctivae. Dry oral mucosa. NECK: No neck rigidity. CHEST: Examination is symmetrical. LUNG: Examination shows no rales, crackles or wheezing. CARDIOVASCULAR: Examination is S1, S2, regular rhythm. ABDOMEN: Soft. Positive epigastric periumbilical tenderness. No rebound tenderness. No costovertebral angle tenderness. Obese. GENITALIA: Male. RECTAL: Deferred. EXTREMITIES: Shows no pitting edema, no calf tenderness, no Homans' sign. NEUROLOGIC: The patient is alert, awake, oriented x3. Cranial nerves II-XII intact. Gait examination is not tested. MUSCULOSKELETAL: Examination shows a body mass index of 38. PSYCHIATRIC: Examination negative. DIAGNOSTICS: WBC 9.6, hemoglobin/hematocrit 12 and 38.4, platelets 391. PT/PTT 12.8, 1.19. Chemistry significant for potassium of 3.5, magnesium 1.9. Troponin is negative. CPK is negative. Amylase, lipase is negative. The patient had a chest x-ray done, right basilar atelectasis. EKG done in the emergency room shows sinus rhythm, Q-wave in lead III, nonspecific ST changes. The patient was seen in the emergency room by Dr. Key. The patient was advised to be admitted to the telemetry for chest pain management. IMPRESSION: 1. Chest pain, etiology undetermined. 2. Recurrent chronic abdominal pain. 3. Transient tachycardia. 4. Transient hypertension. 5. Normocytic anemia. 6. Mild coagulopathy. 7. Hypokalemia. 8. Morbid obesity. 9. History of IgG for related cholangitis. 10. History of portal vein thrombosis or hepatic vein thrombosis. 11. History of chronic narcotic dependent pain syndrome. 12. History of hypovitaminosis D. 13. History of hypokalemia. 14. Questionable hypertensive cardiovascular disease. 15. Age indeterminate inferior infarct as per EKG which may be a normal variant. PLAN: At present, the patient has been seen in emergency room in bed 5. The patient will be admitted to [facility]. The patient has been ordered repeat labs. Serial cardiac enzymes. The patient has been ordered potassium supplementation. The patient has been ordered repeat CBC, CMP, LFT, magnesium phosphorus. Cardiology and gastroenterology consultation ordered. The patient's home medications which are resumed on Actigall 300 twice a day, Os-Sascha with vitamin D twice a day, Dilaudid 0.5 mg IV q. 6 hours p.r.n., Flexeril 5 mg q. p.r.n. The patient is on GI and DVT prophylaxis. The patient has been given potassium riders. The patient's Pradaxa 150 mg daily resumed. Prednisone 5 mg daily resume. The patient was given IV fluid 1 L. The patient is on Zofran 4 mg IV q. 4 p.r.n. Ultrasound of the abdomen was ordered. The patient has been ordered repeat EKG, echo with Doppler ordered. Cardiology consultation ordered. The patient has been ordered out of bed to chair. The patient has been ordered heart healthy diet. The patient's lipid panel has been ordered. TSH, T4 panel has been ordered. The patient's hemoglobin A1c has been ordered. Urine drug screen ordered. The patient has been explained about the details of his medical condition, need for hospitalization, need for further management was explained to the patient at length and all questions concerned answered. The patient was advised strict compliance and follow up in the office on a regular basis.. The patient is awaiting Cardiology evaluation at present. The patient's further management will be dependent upon the patient's clinical condition, hemodynamic status and as per the patient response to therapeutic intervention as per the patient's diagnostic test results and as per recommendation by Cardiology. At present, the patient is awaiting for telemetry bed. Jose Carson MD
[2016-12-03] MEDS: CALCIUM CARBONATE PO SCH (09:10)
[2016-12-03] MEDS: [UNRECOGNIZED DRUG - OTHER] PO SCH (09:10)
[2016-12-03] MEDS: VITAMIN D3 PO SCH (09:10)
[2016-12-03] MEDS ORDERED: Pantoprazole 40 mg EC Tab PO SCH (10:00)
--- NOTE | 2016-12-03 10:09 | CARD ---
APPROVED REPORT EKG Measurement Heart [id number] <Conclusion> Normal sinus rhythm Normal ECG
--- NOTE | 2016-12-03 11:03 | CARD ---
APPROVED REPORT EKG Measurement Heart [id number] AL [id number] <Conclusion> Normal sinus rhythm
--- NOTE | 2016-12-03 11:30 | CARD ---
APPROVED REPORT EKG Measurement Heart [id number] [place] 162P68 [id number] <Conclusion> Normal sinus rhythm Q in 3, Small Q in AVF Probably Non Significant.
--- NOTE | 2016-12-03 11:40 | CARD ---
APPROVED REPORT EKG Measurement Heart [id number] [place] [id number] <Conclusion> Sinus tachycardia
--- NOTE | 2016-12-03 11:50 | CP.PCM.CON ---
History of Present Illness - History of Present Illness History of Present Illness: Seen and examined at the bedside earlier this morning, the chart was reviewed. Request for GI consult is for abdominal pain. 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 He denies nausea, vomiting, diarrhea, fever, chills or shortness of breath. This patient is known to our service. He has been following up regularly at [facility] with Dr. Eugene, who is a data review specialist, the ophthalmic technologist. She was last evaluated by the data review specialist last week and prior to the week before saw the liver doctor. He states that he is going for an MRI this Thursday as recommended by the ophthalmic technologist. He will also be due for an endoscopy at [facility]. He denies any weight loss, loss of appetite or any overt GI bleed. His pain today is improved, he tolerated oral intake. On admission he had an abdominal ultrasound which showed common bile duct was top normal in size it did show a postcholecystectomy, noted to have fatty infiltrations of the liver otherwise no other abnormality is seen but was a limited study due to bowel gas.he did have troponins done negative 4. Past medical history: Liver cyst, fatty liver, IgG stage IV cholangitis, peripancreatic lymph nodes Surgical history: Cholecystectomy [facility], EGD at [facility], due to have one this year , 07/2015 colonoscopy found to have internal hemorrhoids, no polyps Family history: Father heart disease, mother heart disease Social history: denies smoking, EtOH or drug use Allergies: No known drug allergies Medications: Reviewed as per MAR ROS: Systems reviewed with positive finding see HPI Past Patient History - Infectious Disease Hx of Infectious Diseases: None - Tetanus Immunizations Tetanus Immunization: Unknown - Past Social History Smoking Status: Never Smoked - CARDIAC Hx Cardiac Disorders: No Hx Hypertension: No Hx Pacemaker: No - PULMONARY Hx Respiratory Disorders: Yes Hx Asthma: Yes - NEUROLOGICAL Hx Neurological Disorder: No - HEENT Hx HEENT Problems: No - RENAL Hx Chronic Kidney Disease: No - ENDOCRINE/METABOLIC Hx Endocrine Disorders: Yes Other/Comment: Inflammation of the pancreas and L side of the Liver - HEMATOLOGICAL/ONCOLOGICAL Hx Blood Disorders: Yes Hx Anemia: Yes - INTEGUMENTARY Hx Dermatological Problems: No - MUSCULOSKELETAL/RHEUMATOLOGICAL Hx Musculoskeletal Disorders: No Hx Falls: No - GASTROINTESTINAL Hx Gastrointestinal Disorders: Yes (FATTY LIVER,BILIARY OBSTRUCTION, GASTROENTERITIS) Hx Gall Bladder Disease: Yes (LAP ALTAGRACIA ON 06/06/15) Hx Pancreatitis: Yes - GENITOURINARY/GYNECOLOGICAL Hx Genitourinary Disorders: No - PSYCHIATRIC Hx Psychophysiologic Disorder: No Hx Depression: No Hx Substance Use: No - SURGICAL HISTORY Hx Surgeries: Yes Hx Cholecystectomy: Yes - ANESTHESIA Hx Anesthesia: Yes Hx Anesthesia Reactions: No Hx Malignant Hyperthermia: No Meds Allergies/Adverse Reactions: Allergies Allergy/AdvReac Type Severity Reaction Status Date / Time No Known Allergies Allergy Verified 11/06/16 09:07 - Medications Medications: Current Medications Dabigatran (Pradaxa) 150 mg PO DAILY [facility] PRN Reason: Protocol Last Admin: 12/03/16 09:10 Dose: 150 mg Famotidine (Pepcid) 20 mg PO DAILY [facility] Last Admin: 12/03/16 09:10 Dose: 20 mg Hydromorphone HCl (Dilaudid) 0.5 mg IVP Q6H PRN PRN Reason: Pain, moderate (4-7) Last Admin: 12/03/16 06:12 Dose: 0.5 mg Non-Formulary Medication (Calcium Carbonate/Vitamin D3 [Calcium 600 + Vit D Tablet]) 1 each PO BID [facility] Last Admin: 12/03/16 09:10 Dose: Not Given Ondansetron HCl (Zofran Inj) 4 mg IVP Q4H PRN PRN Reason: Nausea/Vomiting Last Admin: 12/02/16 16:33 Dose: 4 mg Pantoprazole Sodium (Protonix Ec Tab) 40 mg PO DAILY [facility] Last Admin: 12/03/16 09:10 Dose: 40 mg Prednisone (Prednisone Tab) 5 mg PO DAILY [facility] Last Admin: 12/03/16 09:10 Dose: 5 mg Ursodiol (Actigall) 300 mg PO BID [facility] Last Admin: 12/03/16 09:10 Dose: 300 mg Physical Exam - Constitutional Appears: No Acute Distress - Head Exam Head Exam: absent: NORMOCEPHALIC - Eye Exam Eye Exam: Normal appearance. absent: Scleral icterus - ENT Exam ENT Exam: Mucous Membranes Moist - Neck Exam Neck exam: Positive for: Normal Inspection - Respiratory Exam Respiratory Exam: Clear to Auscultation Bilateral, NORMAL BREATHING PATTERN. absent: Respiratory Distress - Cardiovascular Exam Cardiovascular Exam: +S1, +S2 - GI/Abdominal Exam GI & Abdominal Exam: Normal Bowel Sounds, Soft. absent: Guarding, Rebound, Tenderness - Extremities Exam Extremities exam: Positive for: pedal pulses present. Negative for: calf tenderness, pedal edema - Neurological Exam Neurological exam: Alert, Oriented x3 Results - Vital Signs Recent Vital Signs: Last Vital Signs Temp 98.9 F 12/03/16 06:00 Pulse 89 12/03/16 06:00 Resp 20 12/03/16 06:00 BP 124/88 12/03/16 06:00 Pulse Ox 99 12/03/16 06:00 - Labs Result Diagrams: 12/03/16 05:20 12/03/16 05:20 Labs: Laboratory Results - last 24 hr 12/02/16 12/02/16 12/02/16 12:28 15:30 20:15 WBC RBC Hgb Hct MCV MCH MCHC RDW Plt Count MPV Gran % Lymph % (Auto) [place] % (Auto) Eos % (Auto) Baso % (Auto) Gran # Lymph # [place] # Eos # Baso # APTT Sodium Potassium Chloride Carbon Dioxide Anion Gap BUN Creatinine Est GFR ( Amer) Est GFR (Non-Af Amer) Random Glucose Calcium Phosphorus Magnesium Total Bilirubin Direct Bilirubin AST ALT Alkaline Phosphatase Troponin I < 0.01 < 0.01 < 0.01 Total Protein Albumin Globulin Albumin/Globulin Ratio Triglycerides Cholesterol LDL Cholesterol Direct HDL Cholesterol Free T4 Thyroxine (T4) TSH 3rd Generation Urine Color Urine Appearance Urine pH Ur Specific [place] Urine Protein Urine Glucose (UA) Urine Ketones Urine Blood Urine Nitrate Urine Bilirubin Urine Urobilinogen Ur Leukocyte Esterase Urine Opiates Screen Urine Methadone Screen Ur Barbiturates Screen Ur Phencyclidine Scrn Ur Amphetamines Screen U Benzodiazepines Scrn U Oth Cocaine Metabols U Cannabinoids Screen 12/02/16 12/02/16 12/03/16 21:09 21:09 00:20 WBC RBC Hgb Hct MCV MCH MCHC RDW Plt Count MPV Gran % Lymph % (Auto) [place] % (Auto) Eos % (Auto) Baso % (Auto) Gran # Lymph # [place] # Eos # Baso # APTT Sodium Potassium Chloride Carbon Dioxide Anion Gap BUN Creatinine Est GFR ( Amer) Est GFR (Non-Af Amer) Random Glucose Calcium Phosphorus Magnesium Total Bilirubin Direct Bilirubin AST ALT Alkaline Phosphatase Troponin I < 0.01 Total Protein Albumin Globulin Albumin/Globulin Ratio Triglycerides Cholesterol LDL Cholesterol Direct HDL Cholesterol Free T4 Thyroxine (T4) TSH 3rd Generation Urine Color Yellow Urine Appearance Clear Urine pH 7.5 Ur Specific [place] 1.015 Urine Protein Negative Urine Glucose (UA) Negative Urine Ketones Negative Urine Blood Negative Urine Nitrate Negative Urine Bilirubin Negative Urine Urobilinogen 0.2 Ur Leukocyte Esterase Negative Urine Opiates Screen Positive H Urine Methadone Screen Negative Ur Barbiturates Screen Negative Ur Phencyclidine Scrn Negative Ur Amphetamines Screen Negative U Benzodiazepines Scrn Negative U Oth Cocaine Metabols Negative U Cannabinoids Screen Negative 12/03/16 12/03/16 12/03/16 05:20 05:20 05:20 WBC 8.1 RBC 4.66 Hgb 12.2 L Hct 38.9 L MCV 83.5 MCH 26.2 MCHC 31.4 RDW 15.1 H Plt Count 387 MPV 9.2 Gran % 66.5 Lymph % (Auto) 21.4 L [place] % (Auto) 10.4 H Eos % (Auto) 1.6 Baso % (Auto) 0.1 Gran # 5.41 Lymph # 1.7 [place] # 0.9 H Eos # 0.1 Baso # 0.01 APTT Sodium 140 Potassium 4.3 Chloride 104 Carbon Dioxide 26 Anion Gap 14 BUN 9 Creatinine 0.8 Est GFR ( Amer) > 60 Est GFR (Non-Af Amer) > 60 Random Glucose 99 Calcium 9.6 Phosphorus 4.3 Magnesium 2.1 Total Bilirubin 0.8 Direct Bilirubin 0.4 AST 26 ALT 21 Alkaline Phosphatase 156 H Troponin I Total Protein 8.0 Albumin 3.7 Globulin 4.3 Albumin/Globulin Ratio 0.9 L Triglycerides 84 Cholesterol 152 LDL Cholesterol Direct 97 HDL Cholesterol 28 L Free T4 0.96 Thyroxine (T4) 7.9 TSH 3rd Generation 0.66 Urine Color Urine Appearance Urine pH Ur Specific [place] Urine Protein Urine Glucose (UA) Urine Ketones Urine Blood Urine Nitrate Urine Bilirubin Urine Urobilinogen Ur Leukocyte Esterase Urine Opiates Screen Urine Methadone Screen Ur Barbiturates Screen Ur Phencyclidine Scrn Ur Amphetamines Screen U Benzodiazepines Scrn U Oth Cocaine Metabols U Cannabinoids Screen 12/03/16 05:20 WBC RBC Hgb Hct MCV MCH MCHC RDW Plt Count MPV Gran % Lymph % (Auto) [place] % (Auto) Eos % (Auto) Baso % (Auto) Gran # Lymph # [place] # Eos # Baso # APTT 33.8 H Sodium Potassium Chloride Carbon Dioxide Anion Gap BUN Creatinine Est GFR ( Amer) Est GFR (Non-Af Amer) Random Glucose Calcium Phosphorus Magnesium Total Bilirubin Direct Bilirubin AST ALT Alkaline Phosphatase Troponin I Total Protein Albumin Globulin Albumin/Globulin Ratio Triglycerides Cholesterol LDL Cholesterol Direct HDL Cholesterol Free T4 Thyroxine (T4) TSH 3rd Generation Urine Color Urine Appearance Urine pH Ur Specific [place] Urine Protein Urine Glucose (UA) Urine Ketones Urine Blood Urine Nitrate Urine Bilirubin Urine Urobilinogen Ur Leukocyte Esterase Urine Opiates Screen Urine Methadone Screen Ur Barbiturates Screen Ur Phencyclidine Scrn Ur Amphetamines Screen U Benzodiazepines Scrn U Oth Cocaine Metabols U Cannabinoids Screen Assessment & Plan - Assessment and Plan (Free Text) Assessment: Assessment: Chest pain/epigastric pain, negative cardiac enzymes History of IgG stage IV autoimmune cholangitis History of cholecystectomy GERD Chronic abdominal pain History of portal vein thrombosis Plan: Continue PPI Diet as tolerated On Prednisone Patient is scheduled for outpatient MRI this Thursday as per [facility] He is to have EGD at [facility], he is awaiting for date Discuss w/ patient to continue regular schedule procedure and FU at [facility] with Dr. Eugene, Vascular Technologist and Heaptologist. Thank you for this consult and for allowing us to participate in your patient's care. Seen and discussed with Dr. Santo.
[2016-12-03 12:33] VITALS: BP 115/77; TEMP 98.7
--- NOTE | 2016-12-03 13:35 | CON ---
DATE: 12/03/2016 CARDIOLOGY CONSULTATION HISTORY OF PRESENT ILLNESS: The patient is a 41-year-old male who presents with abdominal pain, atypical chest pain. The patient's past medical history is complicated with a history of cholecystectomy. There is a question of portal vein thrombosis in the past. I assume that is the reason the patient has been on Pradaxa. The patient denies previous cardiac history. No shortness of breath. He denies diabetes mellitus and denies hypertension. SOCIAL HISTORY: The patient does not smoke. REVIEW OF SYSTEMS: A 14-point review of systems was reviewed in detail. Other than his atypical chest pain which is associated with his abdominal pain, there are no other cardiac symptomatology noted. PHYSICAL EXAMINATION: VITAL SIGNS: Blood pressure is 124/88 and heart rate is in the 90s. NECK: Negative JVD. LUNGS: Without rales. HEART: Reveals S1 and S2. EXTREMITIES: Without edema. DIAGNOSTIC DATA: EKG is normal sinus rhythm with no acute changes. LABORATORY DATA: Troponins are negative times 4. The hemoglobin is 12.2 with a white count of 8.1. IMPRESSION 1. Atypical chest pain. 2. Abdominal pain. 3. History of cholecystectomy. 4. Questionable portal vein thrombosis in the past, the patient has been treated with Pradaxa. PLAN: Given these findings, we will obtain an echocardiogram to evaluate LV function. There is no evidence for acute coronary syndrome, we will DC telemetry. From a cardiac perspective, once his abdominal symptoms have resolved, we will consider an outpatient stress test. Rufino Valle MD
[2016-12-03 15:08] VITALS: PULSE 111
--- NOTE | 2016-12-04 13:45 | DS ---
LOCATION: The patient is seen in room #266, bed 1. HISTORY OF PRESENT ILLNESS: The patient is seen lying in the bed watching TV. The patient's overnight nurse's notes were reviewed. The patient refused ultrasound yesterday, which was ordered for the abdomen. The patient slept without any adverse event. The patient refused IV K-rider, was given p.o. potassium. PHYSICAL EXAMINATION: VITAL SIGNS: T-max is 98.9-99; telemetry sinus rhythm; heart rate 80s, 90s and 84; blood pressure 115/77, 124/88, 120/87, 129/86, 140/86, 150/95, 143/96; respiration 20; O2 sat 99%. HEAD: Examination normocephalic, atraumatic. HEENT: Examination shows pinkish pale conjunctivae. Anicteric sclerae. No oropharyngeal lesion. No neck rigidity. CHEST: Symmetrical. LUNGS: Examination shows no rales, crackles, or wheezing. CARDIOVASCULAR: Shows S1, S2. Regular rhythm. Questionable soft systolic murmur, left sternal border, right second intercostal space. ABDOMEN: Protuberant, obese. Positive bowel sound. No epigastric or periumbilical tenderness. No costovertebral angle tenderness. GENITALIA: Male. RECTAL EXAMINATION: Deferred. EXTREMITIES: Examination show no pitting, no calf tenderness, no Homans' sign. NEUROLOGIC: The patient is alert, awake, oriented x3. Cranial nerves II-XII grossly intact. Motor strength is 5/5. Gait is independent. MUSCULOSKELETAL: Examination shows a body mass index of 37. DIAGNOSTICS: On 12/03, WBC 8.1, hemoglobin/hematocrit 12.2 and 39, platelets 387, normal differential. PT/PTT is normal. Sodium 140, potassium 4.3, chloride 104, CO2 of 26, anion gap 14, BUN 9, creatinine 0.8, GFR greater than 60, glucose 99, hemoglobin A1c of 5.6, which is borderline prediabetic. LFTs shows alk phos 156. Troponin all three sets are negative. Cholesterol 152, LDL 97, HDL 2.8. Thyroid profile is normal. Urinalysis pH 7.5, specific gravity 1.05, protein, glucose, ketone blood, nitrites, bilirubin, negative. Leukocyte esterase negative. Urine drug screen positive for opiate. The patient's abdominal ultrasound was done finally. The results were reviewed and explained to the patient in layman's language. Repeat EKG was done. Echocardiogram was done, results pending. The patient is seen by Cardiology and Gastroenterology. Their recommendation was noted and reinforced to the patient, which he acknowledged to understand. FINAL IMPRESSION/PLAN AND DISCHARGE DIAGNOSIS: 1. Chest pain, most likely atypical associated with upper abdominal pain versus gastritis. 2. History of portal vein thrombosis, on Pradaxa. 3. Transient hypertension. 4. Morbid obesity with elevated body mass index of 37. 5. Normocytic anemia. 6. 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 7. Obesity. 8. History of poor compliance. 9. Status post cholecystectomy. 10. Common bile duct of 5.8 mm. 11. Hepatic steatosis with fatty infiltration of the liver. 12. Chronic narcotic dependent pain syndrome. 13. Right basilar atelectasis. 14. Sinus tachycardia. 15. Epigastric pain with history of gastritis. 16. IgG for autoimmune cholangitis. 17. History of portal vein thrombosis. PLAN: At this time, the patient's echocardiogram is done, results pending. The patient was seen by Cardiology and Gastroenterology, cleared for discharge. Gastroenterology has advised the patient that he is scheduled for an outpatient MRI this weekend at [facility]. The patient is also scheduled for EGD at [facility] awaiting for date. The patient was strictly advised by the ct tech and by me to keep office appointment and follow up in the office and to keep appointments and follow up at [facility] with Dr. Henry, teletype telegrapher and bilingual research interviewer. The patient, at this time, has been cleared for discharge. The patient's discharge medications as per updated ambulatory orders. The patient was advised to stop non-steroidal anti-inflammatory. DISCHARGE MEDICATIONS: The patient is on Os-Sascha with vitamin D 600 mg twice a day. The patient is also taking vitamin D 50,000 units prescribed by [facility]. Flexeril 5 or 10 mg p.r.n. Pradaxa 150 mg daily. The patient is either on Pepcid or Prilosec. Percocet 10/325 p.r.n. Prednisone 5 mg daily. Ultram 50 mg q.8. Actigall 300 mg twice a day. The patient was advised to be discharged home after cleared by Cardiology and after echo was done. Follow up with Dr. Carson within 1 week. Follow up at [facility] as per appointment. Resume all home meds and stop Motrin and ibuprofen. Time spent in the entire discharge process, review of data, and discharge process is more than 45 minutes. Dictated and electronically signed, not read. Jose Carson MD
--- NOTE | 2016-12-04 15:37 | CARD ---
APPROVED REPORT EXAM: Two-dimensional and M-mode echocardiogram with Doppler and color Doppler. INDICATION Chest Pain 2D DIMENSIONS Left Atrium (2D)3.3 (1.6-4.0cm)IVSd1.3 (0.7-1.1cm) LVDd4.8 (3.9-5.9cm)PWd1.4 (0.7-1.1cm) LVDs3.3 (2.5-4.0cm)FS (%) 31.9 % LVEF (%)60.0 (>50%) M-Mode DIMENSIONS Aortic Root3.50 (2.2-3.7cm)Aortic Cusp Exc.2.40 (1.5-2.0cm) Aortic Valve AoV Peak Vknnqthx457.0cm/Love Peak GR.4mmHg Mitral Valve MV E Knczcueo17.0cm/sMV A Wvukanop00.6cm/sE/A ratio1.4 TDI E/Lateral E'0.0E/Medial E'0.0 Tricuspid Valve TR Peak [id number]/sRAP [id number] Peak Gr.17mmHg [id number] LEFT VENTRICLE The left ventricle is normal size. There is mild concentric left ventricular hypertrophy. The left ventricular function is normal.EF-55-60% There is normal LV segmental wall motion. The left ventricular diastolic function is normal. No left ventricle thrombus noted on this study. There is no ventricular septal defect visualized. There is no left ventricular aneurysm. There is no mass noted in the left ventricle. RIGHT VENTRICLE The right ventricle is normal size. There is normal right ventricular wall thickness. The right ventricular systolic function is normal. ATRIA The left atrium size is normal. The right atrium size is normal. The interatrial septum is intact with no evidence for an atrial septal defect. AORTIC VALVE The aortic valve is thickened but opens well. The aortic valve is mildly to moderately sclerotic. There is trace aortic regurgitation. There is no aortic valvular stenosis. There is no aortic valvular vegetation. MITRAL VALVE The mitral valve is thickened but opens well. Mitral regurgitation is trace. There is no mitral valve stenosis. There is no evidence of mitral valve prolapse. TRICUSPID VALVE The tricuspid valve leaflets are thickened , but open well. There is trace tricuspid regurgitation.RVSP-27 mmof hg. There is no tricuspid valve stenosis. There is no tricuspid valve prolapse or vegetation. PULMONIC VALVE The pulmonary valve is normal in structure. GREAT VESSELS The aortic root is normal in size. The ascending aorta is normal in size. The pulmonary artery is normal. The IVC is normal in size and collapses >50% with inspiration. PERICARDIAL EFFUSION There is no pleural effusion. There is no pericardial effusion. <Conclusion> The left ventricle is normal size. There is mild concentric left ventricular hypertrophy. The left ventricular function is normal.EF-55-60% There is trace aortic regurgitation. There is no aortic valvular stenosis. Mitral regurgitation is trace. There is trace tricuspid regurgitation.RVSP-27 mmof hg. The IVC is normal in size and collapses >50% with inspiration. No Vegetation or thrombus noted.
== END 2016-12-03 17:50 | disposition home or self-care (01) ==
LOC: ED 07:57 → ERH 11:31 → 2RNO 12:59
PROVIDERS: ADMIT Internal Medicine; ATTEND Internal Medicine
DX: R07.89 Other chest pain (principal); R10.13 Epigastric pain; K21.9 Gastro-esophageal reflux disease without esophagitis; R03.0 Elevated blood-pressure reading, without diagnosis of hypertension; D64.9 Anemia, unspecified; E87.6 Hypokalemia; E66.01 Morbid (severe) obesity due to excess calories; G89.4 Chronic pain syndrome; E55.9 Vitamin D deficiency, unspecified; Z68.36 Body mass index [BMI] 36.0-36.9, adult
CPT/HCPCS: 36415; 71010; 76700; 80053; 80061; 80324; 80345; 80346; 80349; 80353; 80358; 80361; 81003; 82150; 82248; 82550; 83036; 83615; 83690; 83735; 83992; 84100; 84439; 84443; 84484; 85025; 85610; 85730; 93005; 93306; 96360; 96374; 99285; G0378; J1170; J2270; J2405; J3480; J7040

== ENCOUNTER 2017-01-09 16:35 | Emergency (ER) | payer OTHER ==
[2017-01-09 16:35] VITALS: BMI 38.0
[2017-01-09 16:46] VITALS: BP 124/87; PULSE 83; RESP 16; TEMP 98.5; O2SAT 99
--- NOTE | 2017-01-09 17:20 | ED PDOC ---
Arrival/HPI - General Historian: Patient - General Chief Complaint: Headache Time Seen by Provider: 01/09/17 16:53 - History of Present Illness Narrative History of Present Illness (Text): 01/09/17 17:40 Patient reports 1 day of dry cough with mild headache and nausea. States that he experienced abdominal discomfort earlier today, that he has since resolved and reports no abdominal pain at this time. Otherwise: (-) rash, (-) sore throat , (-) SOB, (-) chest pain, (-) V/D, (-) flank pain, (-) urinary symptoms, (-) recent travel. PMD Alli (Felicitas Valderrama PA-C) Past Medical History - Provider Review Nursing Documentation Reviewed: Yes - Past History Past History: Non-Contributing - Infectious Disease Hx of Infectious Diseases: None - Tetanus Immunization Tetanus Immunization: Unknown - Reproductive Currently : No - Past Medical History Past Medical History: No Previous - Cardiac Hx Cardiac Disorders: No Hx Hypertension: No Hx Pacemaker: No - Pulmonary Hx Respiratory Disorders: Yes Hx Asthma: Yes - Neurological Hx Neurological Disorder: No - HEENT Hx HEENT Disorder: No - Renal Hx Renal Disorder: No - Endocrine/Metabolic Hx Endocrine Disorders: Yes Other/Comment: Inflammation of the pancreas and L side of the Liver - Hematological/Oncological Hx Blood Disorders: Yes Hx Anemia: Yes - Integumentary Hx Dermatological Disorder: No - Musculoskeletal/Rheumatological Hx Musculoskeletal Disorders: No Hx Falls: No - Gastrointestinal Hx Gastrointestinal Disorders: Yes (FATTY LIVER,BILIARY OBSTRUCTION, GASTROENTERITIS) Hx Gall Bladder Disease: Yes (LAP ALTAGRACIA ON 06/06/15) Hx Pancreatitis: Yes - Genitourinary/Gynecological Hx Genitourinary Disorders: No - Psychiatric Hx Psychophysiologic Disorder: No Hx Depression: No Hx Substance Use: No - Past Surgical History Past Surgical History: No Previous - Surgical History Hx Cholecystectomy: Yes - Anesthesia Hx Anesthesia: Yes Hx Anesthesia Reactions: No Hx Malignant Hyperthermia: No - Suicidal Assessment Feels Threatened In Home Enviroment: No Family/Social History - Physician Review Nursing Documentation Reviewed: Yes Family/Social History: Unknown Family HX Smoking Status: Never Smoked Hx Alcohol Use: No Hx Substance Use: No Hx Substance Use Treatment: No Allergies/Home Meds Allergies/Adverse Reactions: Allergies No Known Allergies Allergy (Verified 11/06/16 09:07) Home Medications: Home Meds Medication Instructions Recorded Confirmed Ursodiol 300 mg PO BID 08/21/15 01/09/17 Prednisone [Gregorio] 10 mg PO BID 12/18/15 01/09/17 Calcium Carbonate/Vitamin D3 1 each PO BID 12/02/16 01/09/17 [Calcium 600 + Vit D Tablet] Cholecalciferol [Vitamin D] 6,000 iu PO BID 12/02/16 01/09/17 Dabigatran [Pradaxa] 150 mg PO BID 12/02/16 01/09/17 Omeprazole [Prilosec] 40 mg PO BID 12/02/16 01/09/17 Oxycodone HCl/Acetaminophen 10 mg PO PRN 12/02/16 01/09/17 [Endocet 325 mg-10 mg] Review of Systems - Review of Systems Constitutional: Normal. absent: Fatigue, Weight Change, Fevers ENT: Normal. absent: Sore Throat, Rhinorrhea, Sinus Congestion Respiratory: Normal, Cough. absent: SOB, Sputum Cardiovascular: Normal. absent: Chest Pain, Palpitations, Edema Gastrointestinal: Normal, Abdominal Pain (prior abdominal pain, none now), Nausea. absent: Diarrhea, Vomiting Musculoskeletal: Normal. absent: Arthralgias, Back Pain, Neck Pain Skin: Normal. absent: Rash, Pruritis, Skin Lesions Physical Exam - Physical Exam Narrative Physical Exam (Text): 01/09/17 17:42 GENERAL APPEARANCE: Patient is awake, alert, oriented x 3, in no acute distress. SKIN: Warm, dry; (-) cyanosis, (-) rash. (-) Decubitus Ulcer EYES: (-) conjunctival pallor, (-) scleral icterus, (-) conjunctival hemorrhage. ENMT: Mucous membranes moist. TMs: (-) erythema. Airway patent: (-) stridor. Pharynx: (-) erythema, (-) exudate. NECK: (-) tenderness, (-) stiffness, (-) meningismus, (-) lymphadenopathy. CHEST AND RESPIRATORY: (-) accessory muscle use. Lungs: (-) rales, (-) rhonchi, (-) wheezes, (-) rub; breath sounds equal bilaterally. HEART AND CARDIOVASCULAR: (-) irregularity; (-) murmur, (-) gallop, (-) rub. ABDOMEN AND GI: Soft; (-) tenderness, (-) guarding; (-) organomegaly; (-) mass ; (-) CVA tenderness. EXTREMITIES: (-) deformity; (-) cellulitis, (-) lymphangitis; (-) subungual hemorrhage; (-) edema. NEURO AND PSYCH: Mental status as above; (-) focal findings. (Lavelle HERRERA, Felicitas Ramirez) Vital Signs Temp Pulse Resp BP Pulse Ox 01/09/17 16:42 98.5 F 83 16 124/87 99 Medical Decision Making ED Course and Treatment: 01/09/17 17:43 41 yo M reports 1 day of dry cough with mild headache and nausea. Plan : - Ibuprofen PO Based on history and exam, results plan will be for outpatient follow-up. Dx of likely viral illness d/w the pt in great detail. Advised bedrest, drink plenty of fluids. Instructed to follow up with primary care physician in 1-2 days without fail. Return to the emergency room at any time for any new or worsening symptoms. Patient states he fully agrees with and understands discharge instructions. States that he agrees with the plan and disposition. Verbalized and repeated discharge instructions and plan. I have given the patient opportunity to ask any additional questions. (Lavelle HERRERA,Felicitas Ramirez) - Medication Orders Current Medication Orders: Discontinued Medications Ibuprofen (Motrin Tab) 600 mg PO STAT STA Stop: 01/09/17 17:22 Last Admin: 01/09/17 17:29 Dose: 600 mg MAR Pain/Vitals Document 01/09/17 17:29 SE (Rec: 01/09/17 17:29 [id number]) Pain Reassessment Is This A Pain ReAssessment? No Sleep Is patient sleeping during reassessment? No Presence of Pain Presence of Pain Yes Pain Scale Used Pain Scale Used Numeric - PA / PRINCIPAL TECHNICAL WRITER / Resident Statement MD/DO has reviewed & agrees with the documentation as recorded. Disposition/Present on Arrival - Present on Arrival Any Indicators Present on Arrival: No History of DVT/PE: No History of Uncontrolled Diabetes: No Urinary Catheter: No History of Decub. Ulcer: No History Surgical Site Infection Following: None - Disposition Have Diagnosis and Disposition been Completed?: Yes Disposition Time: 17:19 Patient Plan: Discharge - Disposition Diagnosis: Cough Disposition: HOME/ ROUTINE Condition: STABLE Discharge Instructions (ExitCare): Viral Syndrome (ED) Print Language: MONGOLIAN Additional Instructions: Thank you for letting us take care of you today. You were treated for cough, likely viral illness. The emergency medical care you received today was directed at your acute symptoms. Bed rest, drink plenty of fluids. It may take several days for your symptoms to resolve. Return to the Emergency Department if your symptoms worsen, do not improve, or if you have any other problems. Please contact your doctor in 2 days for re-evaluation and follow up. Bring any paperwork you were given at discharge with you along with any medications you are taking to your follow up visit. Our treatment cannot replace ongoing medical care by a primary care provider (PCP) outside of the emergency department. Thank you for allowing the [facility] team to be part of your care today. Forms: [employer] (Kiswahili), WORK NOTE
== END 2017-01-09 17:42 | disposition home or self-care (01) ==
LOC: ED 16:35
DX: R05 Cough (principal)

== ENCOUNTER 2017-01-14 16:59 | Emergency (ER) | payer OTHER ==
[2017-01-14 17:00] VITALS: BMI 38.0
[2017-01-14 17:21] VITALS: RESP 16; TEMP 98.8
--- NOTE | 2017-01-14 18:23 | ED PDOC ---
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 Pt reports, pain is localized over shoulder area, non-radiating and worse with RIght arm movement. Pt denies known direct trauma or injury, fever, chills, CP, SOB, dyspnea, diaphoresis, palpitation, denies shoulder deformity or skin changes, weakness of Right arm, denies sensory or vascular deficits to Right arm. At the time of evaluation, pt is comfortable, not in any apparent distress. Past Medical History - Provider Review Nursing Documentation Reviewed: Yes - Travel History Have you recently traveled outside [place] w/in the past 3 mons?: No - Past History Past History: Non-Contributing - Infectious Disease Hx of Infectious Diseases: None - Tetanus Immunization Tetanus Immunization: Unknown - Reproductive Currently : No - Past Medical History Past Medical History: No Previous - Cardiac Hx Cardiac Disorders: No Hx Hypertension: No Hx Pacemaker: No - Pulmonary Hx Respiratory Disorders: Yes Hx Asthma: Yes - Neurological Hx Neurological Disorder: No - HEENT Hx HEENT Disorder: No - Renal Hx Renal Disorder: No - Endocrine/Metabolic Hx Endocrine Disorders: Yes Other/Comment: Inflammation of the pancreas and L side of the Liver - Hematological/Oncological Hx Blood Disorders: Yes Hx Anemia: Yes - Integumentary Hx Dermatological Disorder: No - Musculoskeletal/Rheumatological Hx Musculoskeletal Disorders: No Hx Falls: No - Gastrointestinal Hx Gastrointestinal Disorders: Yes (FATTY LIVER,BILIARY OBSTRUCTION, GASTROENTERITIS) Hx Gall Bladder Disease: Yes (LAP ALTAGRACIA ON 06/06/15) Hx Pancreatitis: Yes - Genitourinary/Gynecological Hx Genitourinary Disorders: No - Psychiatric Hx Psychophysiologic Disorder: No Hx Depression: No Hx Substance Use: No - Past Surgical History Past Surgical History: No Previous - Surgical History Hx Cholecystectomy: Yes - Anesthesia Hx Anesthesia: Yes Hx Anesthesia Reactions: No Hx Malignant Hyperthermia: No - Suicidal Assessment Feels Threatened In Home Enviroment: No Family/Social History - Physician Review Nursing Documentation Reviewed: Yes Family/Social History: No Known Family HX Smoking Status: Never Smoked Hx Alcohol Use: No Hx Substance Use: No Hx Substance Use Treatment: No Allergies/Home Meds Allergies/Adverse Reactions: Allergies No Known Allergies Allergy (Verified 11/06/16 09:07) Home Medications: Home Meds Medication Instructions Recorded Confirmed Ursodiol 300 mg PO BID 08/21/15 01/09/17 Prednisone [Gregorio] 10 mg PO BID 12/18/15 01/09/17 Calcium Carbonate/Vitamin D3 1 each PO BID 12/02/16 01/09/17 [Calcium 600 + Vit D Tablet] Cholecalciferol [Vitamin D] 6,000 iu PO BID 12/02/16 01/09/17 Dabigatran [Pradaxa] 150 mg PO BID 12/02/16 01/09/17 Omeprazole [Prilosec] 40 mg PO BID 12/02/16 01/09/17 Oxycodone HCl/Acetaminophen 10 mg PO PRN 12/02/16 01/09/17 [Endocet 325 mg-10 mg] Review of Systems - Review of Systems Constitutional: Normal Eyes: Normal ENT: Normal Respiratory: Normal Cardiovascular: Normal Gastrointestinal: Normal Genitourinary Male: Normal Musculoskeletal: Arthralgias (Right shoulder pain) Skin: Normal Neurological: Normal Endocrine: Normal Hemo/Lymphatic: Normal Psychiatric: Normal Physical Exam Vital Signs Reviewed: Yes Vital Signs Temp Pulse Resp BP Pulse Ox 01/14/17 17:04 98.8 F 97 H 16 124/83 97 Temperature: Afebrile Blood Pressure: Normal Pulse: Regular Respiratory Rate: Normal Appearance: Positive for: Well-Appearing, Non-Toxic, Comfortable Pain Distress: Mild Mental Status: Positive for: Alert and Oriented X 3 - Systems Exam Head: Present: Normocephalic Conjunctiva: Present: Normal Neck: Present: Trachea Midline. No: MIDLINE TENDERNESS Respiratory/Chest: Present: Clear to Auscultation, Good Air Exchange. No: Respiratory Distress, Wheezes, Decreased Breath Sounds Cardiovascular: Present: Regular Rate and Rhythm Back: No: CVA Tenderness Upper Extremity: Present: Normal ROM (of Right shoulder with mild discomfort to Right shoulder abduction and extension.), NORMAL PULSES, Tenderness (mild overlying anterior aspect Right shoulder. No defomrity, no skin changes, no edema, no neeeurovascular deficist distally.), Neurovascularly Intact, Capillary Refill < 2s. No: Swelling, Erythema, Deformity Lower Extremity: Present: Normal ROM. No: Deformity Neurological: Present: GCS=15, Motor Func Grossly Intact, Normal Sensory Function, Norm Deep Tendon Reflexes Skin: Present: Warm, Normal Color Psychiatric: Present: Alert, Oriented x 3 Medical Decision Making ED Course and Treatment: 01/14/17 On re-eval, pt is afebrile, hemodynamicaly stable. Non-toxic. RUE; exam c/w Right shoulder strain, no deformity, no skin changes. FAROM, no neurovascular deficits Imaging of Right shoulder review (-) acute abnormalities. NSIDS, SLing. Pt advised and ref. to F/U with [facility], Ortho in 2-3 days for re-eval. return to ED if any worsening or new changes. - RAD Interpretation Radiology Orders: 01/14/17 17:29 SHOULDER RIGHT [RAD] Stat (-) acute fx or dislocation - Medication Orders Current Medication Orders: Discontinued Medications Cyclobenzaprine HCl (Flexeril) 10 mg PO STAT STA Stop: 01/14/17 17:30 Last Admin: 01/14/17 17:37 Dose: 10 mg Ibuprofen (Motrin Tab) 400 mg PO STAT STA Stop: 01/14/17 17:30 Last Admin: 01/14/17 17:37 Dose: 400 mg MAR Pain/Vitals Document 01/14/17 17:37 HI (Rec: 01/14/17 17:37 MO [id number]) Pain Reassessment Is This A Pain ReAssessment? No Sleep Is patient sleeping during reassessment? No Presence of Pain Presence of Pain Yes Location Left, Right or Bilateral Right Pain Location Body Site Arm Disposition/Present on Arrival - Present on Arrival Any Indicators Present on Arrival: No History of DVT/PE: No History of Uncontrolled Diabetes: No Urinary Catheter: No History of Decub. Ulcer: No History Surgical Site Infection Following: None - Disposition Have Diagnosis and Disposition been Completed?: Yes Diagnosis: Shoulder strain Disposition: HOME/ ROUTINE Disposition Time: 18:20 Patient Plan: Discharge Patient Problems: Current Active Problems Problem Status Onset Shoulder strain Acute Condition: STABLE Discharge Instructions (ExitCare): Shoulder Sprain (ED) Additional Instructions: LIGHT DUTY TO RIGHT SHOULDER FOR 1 WEEK TAKE MEDICATION PRESCRIBED FOLLOW UP WITH ORTHOPEDIST, [facility] IN 2 DAYS FOR RE-EVALUATION. RETURN TO ED IF ANY WORSENING OR NEW CHANGES. Prescriptions: Methocarbamol [Robaxin] 500 mg PO TID #14 tab Referrals: Jose Carson MD [Primary Care Provider] - Follow up with primary Forms: [employer] (Indonesian), WORK NOTE
[2017-01-14 18:45] VITALS: BP 125/89; PULSE 87; O2SAT 100
--- NOTE | 2017-01-15 09:49 | RAD ---
PROCEDURE: Radiographs of the Right Shoulder HISTORY: pain COMPARISON: Comparison made with CT scan of the chest dated 05/28/2015 which image the right lung apex. Comparison also made with chest radiograph dated 12/02/2016 FINDINGS: BONES: Normal. No fracture. JOINTS: Normal. Glenohumeral and acromioclavicular joints preserved. No osteoarthritis. SOFT TISSUES: Elliptical shaped density right upper lobe overlying the right 1st rib may represent button artifact on OTHER FINDINGS: None. IMPRESSION: No evidence of acute displaced fracture nor dislocation.
== END 2017-01-14 18:43 | disposition home or self-care (01) ==
LOC: ED 16:59
DX: S46.911A Strain of unspecified muscle, fascia and tendon at shoulder and upper arm level, right arm, initial encounter (principal); X58.XXXA Exposure to other specified factors, initial encounter; Y92.9 Unspecified place or not applicable

== ENCOUNTER 2017-01-28 18:25 | Emergency (ER) | payer OTHER ==
[2017-01-28 18:26] VITALS: BMI 38.0
[2017-01-28 18:55] VITALS: RESP 17; TEMP 98.2
[2017-01-28] MEDS ORDERED: Alum-Mag Hydrox-Simethicone Susp (30 mL) PO STA (19:14)
--- NOTE | 2017-01-28 19:25 | ED PDOC ---
Arrival/HPI - General Chief Complaint: Abdominal Pain Time Seen by Provider: 01/28/17 19:13 Historian: Patient - History of Present Illness Narrative History of Present Illness (Text): 01/28/17 19:13 A 41 year old male, whose past medical history includes chronic abdominal pain for the past 4 years and cholecystectomy, presents to the emergency department complaining of constipation since earlier this afternoon. Patient notes chronic abdominal pain which feels relatively unchanged today. He reports he takes oxycodone everyday for his pain. Patient denies any fever, chills, nausea, vomiting, chest pain, shortness of breath or any other complaints. Time/Duration: Other (today) Symptom Course: Unchanged Quality: Other Context: Home, Work Past Medical History - Provider Review Nursing Documentation Reviewed: Yes - Past History Past History: Non-Contributing - Infectious Disease Hx of Infectious Diseases: None - Tetanus Immunization Tetanus Immunization: Unknown - Reproductive Currently : No - Past Medical History Past Medical History: No Previous - Cardiac Hx Cardiac Disorders: No Hx Hypertension: No Hx Pacemaker: No - Pulmonary Hx Respiratory Disorders: Yes Hx Asthma: Yes - Neurological Hx Neurological Disorder: No - HEENT Hx HEENT Disorder: No - Renal Hx Renal Disorder: No - Endocrine/Metabolic Hx Endocrine Disorders: Yes Other/Comment: Inflammation of the pancreas and L side of the Liver - Hematological/Oncological Hx Blood Disorders: Yes Hx Anemia: Yes - Integumentary Hx Dermatological Disorder: No - Musculoskeletal/Rheumatological Hx Musculoskeletal Disorders: No Hx Falls: No - Gastrointestinal Hx Gastrointestinal Disorders: Yes (FATTY LIVER,BILIARY OBSTRUCTION, GASTROENTERITIS) Hx Gall Bladder Disease: Yes (LAP ALTAGRACIA ON 06/06/15) Hx Pancreatitis: Yes - Genitourinary/Gynecological Hx Genitourinary Disorders: No - Psychiatric Hx Psychophysiologic Disorder: No Hx Depression: No Hx Substance Use: No - Past Surgical History Past Surgical History: No Previous - Surgical History Hx Cholecystectomy: Yes - Anesthesia Hx Anesthesia: Yes Hx Anesthesia Reactions: No Hx Malignant Hyperthermia: No - Suicidal Assessment Feels Threatened In Home Enviroment: No Family/Social History - Physician Review Nursing Documentation Reviewed: Yes Family/Social History: No Known Family HX Smoking Status: Never Smoked Hx Alcohol Use: No Hx Substance Use: No Hx Substance Use Treatment: No Allergies/Home Meds Allergies/Adverse Reactions: Allergies No Known Allergies Allergy (Verified 01/28/17 18:54) Home Medications: Home Meds Medication Instructions Recorded Confirmed Ursodiol 300 mg PO BID 08/21/15 01/28/17 Prednisone [Gregorio] 10 mg PO BID 12/18/15 01/28/17 Calcium Carbonate/Vitamin D3 1 each PO BID 12/02/16 01/28/17 [Calcium 600 + Vit D Tablet] Cholecalciferol [Vitamin D] 6,000 iu PO BID 12/02/16 01/28/17 Dabigatran [Pradaxa] 150 mg PO BID 12/02/16 01/28/17 Omeprazole [Prilosec] 40 mg PO BID 12/02/16 01/28/17 Oxycodone HCl/Acetaminophen 10 mg PO PRN 12/02/16 01/28/17 [Endocet 325 mg-10 mg] Review of Systems - Physician Review All systems were reviewed & negative as marked: Yes - Review of Systems Constitutional: absent: Fevers, Night Sweats Respiratory: absent: SOB Cardiovascular: absent: Chest Pain Gastrointestinal: Abdominal Pain (chronic), Constipation. absent: Nausea, Vomiting Physical Exam Vital Signs Reviewed: Yes Vital Signs Temp Pulse Resp BP Pulse Ox 01/28/17 18:54 98.2 F 102 H 17 117/77 96 Temperature: Afebrile Blood Pressure: Normal Pulse: Tachycardic Respiratory Rate: Normal Appearance: Positive for: Well-Appearing, Non-Toxic, Comfortable Pain Distress: None Mental Status: Positive for: Alert and Oriented X 3 - Systems Exam Head: Present: Atraumatic, Normocephalic Pupils: Present: PERRL Extroacular Muscles: Present: EOMI Conjunctiva: Present: Normal Mouth: Present: Moist Mucous Membranes Neck: Present: Normal Range of Motion Respiratory/Chest: Present: Clear to Auscultation, Good Air Exchange. No: Respiratory Distress, Accessory Muscle Use Cardiovascular: Present: Regular Rate and Rhythm, Normal S1, S2. No: Murmurs Abdomen: Present: Tenderness (Mildly diffuse tenderness), Normal Bowel Sounds. No: Distention, Peritoneal Signs, Rebound, Guarding Back: Present: Normal Inspection Upper Extremity: Present: Normal Inspection. No: Cyanosis, Edema Lower Extremity: Present: Normal Inspection. No: Edema Neurological: Present: GCS=15, Speech Normal Skin: Present: Warm, Dry, Normal Color. No: Rashes Psychiatric: Present: Alert, Oriented x 3, Normal Insight, Normal Concentration Medical Decision Making ED Course and Treatment: 01/28/17 20:41 Patient refusing rectal exam. I have personally explained to the patient that choosing to do so prevents full evaluation 01/28/17 21:51 pt requesting to be dc at this time. says he feels better after enema. - Lab Interpretations Lab Results: 01/28/17 19:40 01/28/17 19:40 Lab Results 01/28/17 19:40: Sodium 140, Chloride 101, Potassium 4.3, Carbon Dioxide 31, Anion Gap 12, BUN 17, Creatinine 1.1, Est GFR ( Amer) > 60, Est GFR (Non- Af Amer) > 60, Random Glucose 140 H, Calcium 10.1, Total Bilirubin 0.6, AST 27, ALT 30, Alkaline Phosphatase 159 H D, Total Protein 9.0 H, Albumin 4.1, Globulin 4.9, Albumin/Globulin Ratio 0.8 L, Lipase 68 01/28/17 19:40: pO2 32, VBG pH 7.37, VBG pCO2 56.0, VBG HCO3 32.4 H, VBG Total CO2 34.1 H, VBG O2 Sat (Calc) 58.5, VBG Base Excess 5.5 H, VBG Potassium 4.4, Sodium 139.0, Chloride 102.0, Glucose 140 H, Lactate 1.6, FiO2 21.0, Venous Blood Potassium 4.4 01/28/17 19:40: WBC 11.6 H D, RBC 4.82, Hgb 12.8 L, Hct 40.8 L, MCV 84.6, MCH 26.6, MCHC 31.4, RDW 15.8 H, Plt Count 393, MPV 9.4, Gran % 75.0 H, Lymph % ( Auto) 18.6 L, Cole % (Auto) 5.7, Eos % (Auto) 0.5 L, Baso % (Auto) 0.2, Gran # 8.69 H, Lymph # 2.2, Cole # 0.7 H, Eos # 0.1, Baso # 0.02 - Medication Orders Current Medication Orders: Discontinued Medications Al Hydrox/Mg Hydrox/Simethicone (Maalox Plus 30 Ml) 30 ml PO STAT STA Stop: 01/28/17 19:15 Last Admin: 01/28/17 19:44 Dose: 30 ml Dicyclomine HCl (Bentyl) 10 mg PO STAT STA Stop: 01/28/17 19:16 Last Admin: 01/28/17 19:44 Dose: 10 mg Sodium Phosphate (Fleet Enema) 135 ml RC STAT STA Stop: 01/28/17 20:41 Last Admin: 01/28/17 21:12 Dose: 135 ml - Scribe Statement The provider has reviewed the documentation as recorded by the Gabeibsheng Barone Provider Scribe Attestation: All medical record entries made by the Scribe were at my direction and personally dictated by me. I have reviewed the chart and agree that the record accurately reflects my personal performance of the history, physical exam, medical decision making, and the department course for this patient. I have also personally directed, reviewed, and agree with the discharge instructions and disposition. Disposition/Present on Arrival - Present on Arrival Any Indicators Present on Arrival: No History of DVT/PE: No History of Uncontrolled Diabetes: No Urinary Catheter: No History of Decub. Ulcer: No History Surgical Site Infection Following: None - Disposition Have Diagnosis and Disposition been Completed?: Yes Diagnosis: Constipation, Chronic abdominal pain Disposition: HOME/ ROUTINE Disposition Time: 21:50 Condition: IMPROVED Referrals: Jose Carson MD [Primary Care Provider] - Follow up with primary Forms: [employer] (Polish)
[2017-01-28 19:56] LABS: BASO # 0.02 K/mm3 (0.0-2.0); BASO % 0.2 % (0.0-3.0); EOS # 0.1 (0.0-0.7); EOS % 0.5 % (1.5-5.0); GRAN # 8.69 (1.4-6.5); HEMATOCRIT 40.8 % (42.0-52.0); LYMPH # 2.2 (1.2-3.4); LYMPH % 18.6 % (22.0-35.0); MEAN CELL VOLUME 84.6 fl (80.0-105.0); MEAN CORPUSCULAR HEMOGLOBIN 26.6 pg (25.0-35.0); MEAN CORPUSCULAR HGB CONC 31.4 g/dl (31.0-37.0); MEAN PLATELET VOLUME 9.4 fl (7.0-11.0); MONO # 0.7 (0.1-0.6); MONO % 5.7 % (1.0-6.0); RED CELL DISTRIBUTION WIDTH 15.8 % (11.5-14.5); VENOUS BLOOD GAS BASE EXCESS 5.5 mmol/L (0.0-2.0); VENOUS BLOOD PH 7.37 (7.32-7.43); WHITE BLOOD COUNT 11.6 10^3/ul (4.5-11.0)
[2017-01-28 20:06] LABS: ALB/GLOB RATIO 0.8 (1.1-1.8); ALKALINE PHOSPHATASE 159 U/L (38-126); ALT/SGPT 30 U/L (7-56); AST/SGOT 27 U/L (17-59); BILIRUBIN,TOTAL 0.6 mg/dL (0.2-1.3); BLOOD UREA NITROGEN 17 mg/dL (7-21); CALCIUM 10.1 mg/dL (8.4-10.5); CARBON DIOXIDE 31 mmol/L (21-33); CHLORIDE 101 mmol/L (98-107); GFR AFRICAN-AMERICAN > 60; GLUCOSE,RANDOM 140 mg/dL (70-110); LIPASE 68 U/L (23-300); POTASSIUM 4.3 mmol/L (3.6-5.0); SODIUM 140 mmol/L (132-148)
[2017-01-28 22:30] VITALS: BP 122/82; PULSE 82; O2SAT 98
== END 2017-01-28 22:30 | disposition home or self-care (01) ==
LOC: ED 18:25
DX: K59.00 Constipation, unspecified (principal); R10.9 Unspecified abdominal pain; Z90.49 Acquired absence of other specified parts of digestive tract

== ENCOUNTER 2017-02-22 10:12 | Emergency (ER) | payer OTHER ==
[2017-02-22 10:13] VITALS: BMI 38.0
--- NOTE | 2017-02-22 12:03 | ED PDOC ---
Arrival/HPI - General Chief Complaint: Abdominal Pain Time Seen by Provider: 02/22/17 11:10 Historian: Patient - History of Present Illness Narrative History of Present Illness (Text): 02/22/17 11:22 A 41 year old male, whose past medical history includes chronic abdominal pain and cholecystectomy, presents to the emergency department complaining of epigastric abdominal pain. Patient has been here multiple times for similar complaint. Describes pain to be moderately severe. 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 Patient was recently at a different hospital and was discharged. Patient is currenyl requesting for narcotics for pain. Patient denies any fever, vomiting, diarrhea, or any other complaints at this time. Also, patient denies any smoking or EtOH abuse. Patient also mentions taking oxycodone at home. Is scheduled for endoscopy in 2 days. Previous emergency department records of patient have been reviewed. PMD: Dr. Carson Symptom Onset: Sudden Symptom Course: Unchanged Past Medical History - Provider Review Nursing Documentation Reviewed: Yes - Past History Past History: Non-Contributing - Infectious Disease Hx of Infectious Diseases: None - Tetanus Immunization Tetanus Immunization: Unknown - Past Medical History Past Medical History: No Previous - Cardiac Hx Cardiac Disorders: No Hx Hypertension: No Hx Pacemaker: No - Pulmonary Hx Respiratory Disorders: Yes Hx Asthma: Yes - Neurological Hx Neurological Disorder: No - HEENT Hx HEENT Disorder: No - Renal Hx Renal Disorder: No - Endocrine/Metabolic Hx Endocrine Disorders: Yes Other/Comment: Inflammation of the pancreas and L side of the Liver - Hematological/Oncological Hx Blood Disorders: Yes Hx Anemia: Yes - Integumentary Hx Dermatological Disorder: No - Musculoskeletal/Rheumatological Hx Musculoskeletal Disorders: No Hx Falls: No - Gastrointestinal Hx Gastrointestinal Disorders: Yes (FATTY LIVER,BILIARY OBSTRUCTION, GASTROENTERITIS) Hx Gall Bladder Disease: Yes (LAP ALTAGRACIA ON 06/06/15) Hx Pancreatitis: Yes - Genitourinary/Gynecological Hx Genitourinary Disorders: No - Psychiatric Hx Psychophysiologic Disorder: No Hx Depression: No Hx Substance Use: No - Past Surgical History Past Surgical History: No Previous - Surgical History Hx Cholecystectomy: Yes - Anesthesia Hx Anesthesia: Yes Hx Anesthesia Reactions: No Hx Malignant Hyperthermia: No - Suicidal Assessment Feels Threatened In Home Enviroment: No Family/Social History - Physician Review Nursing Documentation Reviewed: Yes Family/Social History: No Known Family HX Smoking Status: Never Smoked Hx Alcohol Use: No Hx Substance Use: No Hx Substance Use Treatment: No Allergies/Home Meds Allergies/Adverse Reactions: Allergies No Known Allergies Allergy (Verified 02/22/17 11:23) Home Medications: Home Meds Medication Instructions Recorded Confirmed Ursodiol 300 mg PO BID 08/21/15 02/22/17 Prednisone [Gregorio] 10 mg PO BID 12/18/15 02/22/17 Calcium Carbonate/Vitamin D3 1 each PO BID 12/02/16 02/22/17 [Calcium 600 + Vit D Tablet] Cholecalciferol [Vitamin D] 6,000 iu PO BID 12/02/16 02/22/17 Dabigatran [Pradaxa] 150 mg PO BID 12/02/16 02/22/17 Omeprazole [Prilosec] 40 mg PO BID 12/02/16 02/22/17 Oxycodone HCl/Acetaminophen 10 mg PO PRN 12/02/16 02/22/17 [Endocet 325 mg-10 mg] Review of Systems - Physician Review All systems were reviewed & negative as marked: Yes - Review of Systems Constitutional: absent: Fevers Gastrointestinal: Abdominal Pain (epigastric region (chronic)). absent: Diarrhea, Vomiting Physical Exam Vital Signs Reviewed: Yes Vital Signs Temp Pulse Resp BP Pulse Ox 02/22/17 12:12 98.3 F 91 H 16 141/84 98 Temperature: Afebrile Blood Pressure: Normal Pulse: Regular Respiratory Rate: Normal Appearance: Positive for: Well-Appearing (patient appears well-hydrated; no jaundice) Pain Distress: Severe (moderately) Mental Status: Positive for: Alert and Oriented X 3 (patient asks for morhpine for pain, however has been denied) - Systems Exam Head: Present: Atraumatic, Normocephalic Pupils: Present: PERRL Extroacular Muscles: Present: EOMI Conjunctiva: Present: Normal Mouth: Present: Moist Mucous Membranes Neck: Present: Normal Range of Motion Respiratory/Chest: Present: Clear to Auscultation, Good Air Exchange. No: Respiratory Distress, Accessory Muscle Use Cardiovascular: Present: Regular Rate and Rhythm, Normal S1, S2. No: Murmurs Abdomen: Present: Tenderness (upper abdominal tenderness appears to be exhibited with significant delay after palpation), Normal Bowel Sounds. No: Hernias, Mass/Organomegaly Back: Present: Normal Inspection Upper Extremity: Present: Normal Inspection. No: Cyanosis, Edema Lower Extremity: Present: Normal Inspection. No: Edema Neurological: Present: GCS=15, CN II-XII Intact, Speech Normal Skin: Present: Warm, Dry, Normal Color. No: Rashes Psychiatric: Present: Alert, Oriented x 3, Normal Insight, Normal Concentration Medical Decision Making ED Course and Treatment: 02/22/17 11:26 Impression: 41 year old male with epigastric abdominal pain. Physical exam shows upper abdominal tenderness; rest of examination is normal. Plan: -- Labs -- Toradol -- Reassess and disposition Prior Visits: Notes and results from previous visits were reviewed. Patient was last seen in the emergency department on 01/28/2017 for constipation. Patient was discharged home. Progress Notes: - Lab Interpretations Lab Results: 02/22/17 11:55 02/22/17 11:55 Lab Results 02/22/17 11:55: Sodium 142, Potassium 3.7, Chloride 101, Carbon Dioxide 30, Anion Gap 15, BUN 17, Creatinine 1.1, Est GFR ( Amer) > 60, Est GFR (Non- Af Amer) > 60, Random Glucose 104, Calcium 9.5, Total Bilirubin 0.7, AST 24, ALT 31, Alkaline Phosphatase 152 H, Total Protein 9.0 H, Albumin 3.9, Globulin 5.1, Albumin/Globulin Ratio 0.8 L, Amylase 61, Lipase 49 02/22/17 11:55: WBC 10.9, RBC 4.49, Hgb 11.5 L, Hct 37.8 L, MCV 84.2, MCH 25.6, MCHC 30.4 L, RDW 15.4 H, Plt Count 402, MPV 9.3, Gran % 76.2 H, Lymph % (Auto) 12.9 L, [place] % (Auto) 9.6 H, Eos % (Auto) 1.1 L, Baso % (Auto) 0.2, Gran # 8.31 H, Lymph # 1.4, [place] # 1.0 H, Eos # 0.1, Baso # 0.02 I have reviewed the lab results: Yes - Medication Orders Current Medication Orders: Discontinued Medications Ketorolac Tromethamine (Toradol) 60 mg IM STAT STA Stop: 02/22/17 11:28 Last Admin: 02/22/17 12:14 Dose: 60 mg MAR Pain Assessment Document 02/22/17 12:14 EQ (Rec: 02/22/17 12:14 EQ [id number]) Pain Reassessment Is this a pain reassessment? No Sleep Is patient sleeping during reassessment? No Presence of Pain Presence of Pain Yes Pain Scale Used Pain Scale Used Numeric IM Administration Charges Document 02/22/17 12:14 EQ (Rec: 02/22/17 12:14 EQ [id number]) Charges for Administration # of IM Administrations 1 - Scribe Statement The provider has reviewed the documentation as recorded by the Scribe Олег Gibbs Provider Scribe Attestation: All medical record entries made by the Scribe were at my direction and personally dictated by me. I have reviewed the chart and agree that the record accurately reflects my personal performance of the history, physical exam, medical decision making, and the department course for this patient. I have also personally directed, reviewed, and agree with the discharge instructions and disposition. Disposition/Present on Arrival - Present on Arrival Any Indicators Present on Arrival: No History of DVT/PE: No History of Uncontrolled Diabetes: No Urinary Catheter: No History of Decub. Ulcer: No History Surgical Site Infection Following: None - Disposition Have Diagnosis and Disposition been Completed?: Yes Diagnosis: Abdominal pain Disposition: HOME/ ROUTINE Disposition Time: 12:45 Patient Problems: Current Active Problems Problem Status Onset Abdominal pain Acute Condition: STABLE Additional Instructions: Keep your appointment with your GI doctor in 2 days, as scheduled. Prescriptions: Dicyclomine [Bentyl] 20 mg PO TID PRN #15 tab PRN Reason: Pain, Moderate (4-7) Referrals: Jose Carson MD [Primary Care Provider] - Follow up with primary Forms: [employer] (Chinese)
[2017-02-22 12:13] VITALS: BP 141/84; PULSE 91; RESP 16; TEMP 98.3; O2SAT 98
[2017-02-22 12:25] LABS: BASO # 0.02 K/mm3 (0.0-2.0); BASO % 0.2 % (0.0-3.0); EOS # 0.1 (0.0-0.7); EOS % 1.1 % (1.5-5.0); GRAN # 8.31 (1.4-6.5); GRAN % 76.2 % (50.0-68.0); HEMOGLOBIN 11.5 g/dL (14.0-18.0); LYMPH # 1.4 (1.2-3.4); LYMPH % 12.9 % (22.0-35.0); MEAN CELL VOLUME 84.2 fl (80.0-105.0); MEAN CORPUSCULAR HEMOGLOBIN 25.6 pg (25.0-35.0); MEAN CORPUSCULAR HGB CONC 30.4 g/dl (31.0-37.0); MEAN PLATELET VOLUME 9.3 fl (7.0-11.0); MONO % 9.6 % (1.0-6.0); RBC 4.49 10^6/uL (3.5-6.1); RED CELL DISTRIBUTION WIDTH 15.4 % (11.5-14.5); WHITE BLOOD COUNT 10.9 10^3/ul (4.5-11.0)
[2017-02-22 12:34] LABS: ALBUMIN 3.9 g/dL (3.0-4.8); ALT/SGPT 31 U/L (7-56); AMYLASE 61 U/L (35-125); AST/SGOT 24 U/L (17-59); BLOOD UREA NITROGEN 17 mg/dL (7-21); CALCIUM 9.5 mg/dL (8.4-10.5); GFR AFRICAN-AMERICAN > 60; GFR NON-AFRICAN AMERICAN > 60; LIPASE 49 U/L (23-300)
[2017-02-22 12:35] LABS: ALB/GLOB RATIO 0.8 (1.1-1.8)
== END 2017-02-22 13:00 | disposition home or self-care (01) ==
LOC: ED 10:12
DX: R10.9 Unspecified abdominal pain (principal)
CPT/HCPCS: 80053; 82150; 83690; 85025; 96372; 99283; J1885

== ENCOUNTER 2017-03-25 08:58 | Emergency (ER) | payer BC, OTHER ==
[2017-03-25 08:59] VITALS: BMI 38.0
[2017-03-25 09:24] VITALS: RESP 18; TEMP 98.6
[2017-03-25] MEDS: Sodium Chloride 0.9% 1,000 ML IV STA (10:50)
[2017-03-25 10:58] LABS: BASO # 0.02 K/mm3 (0.0-2.0); BASO % 0.2 % (0.0-3.0); EOS # 0.1 (0.0-0.7); GRAN # 8.03 (1.4-6.5); GRAN % 78.7 % (50.0-68.0); HEMOGLOBIN 11.4 g/dL (14.0-18.0); LYMPH # 1.2 (1.2-3.4); LYMPH % 11.3 % (22.0-35.0); MEAN CORPUSCULAR HEMOGLOBIN 25.4 pg (25.0-35.0); MEAN CORPUSCULAR HGB CONC 30.2 g/dl (31.0-37.0); MEAN PLATELET VOLUME 9.1 fl (7.0-11.0); MONO # 0.9 (0.1-0.6); MONO % 8.8 % (1.0-6.0); RBC 4.49 10^6/uL (3.5-6.1); RED CELL DISTRIBUTION WIDTH 15.6 % (11.5-14.5); WHITE BLOOD COUNT 10.2 10^3/ul (4.5-11.0)
[2017-03-25 11:10] LABS: ALB/GLOB RATIO 0.8 (1.1-1.8); ALBUMIN 3.7 g/dL (3.0-4.8); ALT/SGPT 26 U/L (7-56); AST/SGOT 18 U/L (17-59); BLOOD UREA NITROGEN 15 mg/dL (7-21); CALCIUM 10.2 mg/dL (8.4-10.5); GFR AFRICAN-AMERICAN > 60; GFR NON-AFRICAN AMERICAN > 60; LIPASE 66 U/L (23-300)
[2017-03-25 11:18] LABS: INR 1.53 (0.93-1.08); PARTIAL THROMBOPLASTIN TIME 45.1 Seconds (25.1-36.5); PROTHROMBIN TIME 17.7 SECONDS (9.4-12.5)
[2017-03-25] MEDS ORDERED: Iohexol 240 (50 ml) ONE (11:42)
--- NOTE | 2017-03-25 11:44 | ED PDOC ---
Arrival/HPI - General Chief Complaint: Abdominal Pain Time Seen by Provider: 03/25/17 10:30 Historian: Patient - History of Present Illness Narrative History of Present Illness (Text): 03/25/17 11:43 A 41 year old male, whose past medical history includes auto immune disease, anemia, and inflammation to pancreas and L liver, presents to the emergency department complaining of chronic supraumbilical pain familiar to patient. Patient reports taking Percocet last night and this morning, but has had no relief and became concerned. Notes also experiencing sore throat. Patient denies any nausea, vomiting, diarrhea, constipation, change in stools, urinary output changes, or any other complaints. Also, patient's past scans show to be positive for fatty liver. PMD: Dr. Carson Past Medical History - Provider Review Nursing Documentation Reviewed: Yes - Past History Past History: Non-Contributing - Infectious Disease Hx of Infectious Diseases: None - Tetanus Immunization Tetanus Immunization: Unknown - Past Medical History Past Medical History: No Previous - Cardiac Hx Hypertension: No Hx Pacemaker: No - Pulmonary Hx Asthma: Yes - Neurological Hx Neurological Disorder: No - HEENT Hx HEENT Disorder: No - Renal Hx Renal Disorder: No - Endocrine/Metabolic Hx Endocrine Disorders: Yes Other/Comment: Inflammation of the pancreas and L side of the Liver, Auto immune disease - Hematological/Oncological Hx Anemia: Yes - Integumentary Hx Dermatological Disorder: No - Musculoskeletal/Rheumatological Hx Musculoskeletal Disorders: No Hx Falls: No - Gastrointestinal Hx Gall Bladder Disease: Yes (LAP ALTAGRACIA ON 06/06/15) Hx Pancreatitis: Yes - Genitourinary/Gynecological Hx Genitourinary Disorders: No - Psychiatric Hx Depression: No Hx Substance Use: No - Past Surgical History Past Surgical History: No Previous - Surgical History Hx Cholecystectomy: Yes - Anesthesia Hx Anesthesia: Yes Hx Anesthesia Reactions: No Hx Malignant Hyperthermia: No - Suicidal Assessment Feels Threatened In Home Enviroment: No Family/Social History - Physician Review Nursing Documentation Reviewed: Yes Family/Social History: No Known Family HX Smoking Status: Never Smoked Hx Alcohol Use: No Hx Substance Use: No Hx Substance Use Treatment: No Allergies/Home Meds Allergies/Adverse Reactions: Allergies No Known Allergies Allergy (Verified 03/25/17 09:07) Home Medications: Home Meds Medication Instructions Recorded Confirmed Ursodiol 300 mg PO BID 08/21/15 03/25/17 Prednisone [Gregorio] 10 mg PO BID 12/18/15 03/25/17 Calcium Carbonate/Vitamin D3 1 each PO BID 12/02/16 03/25/17 [Calcium 600 + Vit D Tablet] Cholecalciferol [Vitamin D] 6,000 iu PO BID 12/02/16 03/25/17 Dabigatran [Pradaxa] 150 mg PO BID 12/02/16 03/25/17 Omeprazole [Prilosec] 40 mg PO BID 12/02/16 03/25/17 Oxycodone HCl/Acetaminophen 10 mg PO PRN 12/02/16 03/25/17 [Endocet 325 mg-10 mg] Review of Systems - Physician Review All systems were reviewed & negative as marked: Yes - Review of Systems ENT: Sore Throat (mild) Gastrointestinal: Abdominal Pain (supraumbilical pain (chronic) ). absent: Stool Changes, Constipation, Diarrhea, Nausea, Vomiting Genitourinary Male: absent: Urinary Output Changes Physical Exam Vital Signs Reviewed: Yes Vital Signs Temp Pulse Resp BP Pulse Ox 03/25/17 15:19 79 18 135/69 97 03/25/17 12:58 89 18 138/75 97 03/25/17 09:23 98.6 F 97 H 18 142/82 97 Temperature: Afebrile Blood Pressure: Normal Pulse: Regular Respiratory Rate: Normal Appearance: Positive for: Well-Appearing Pain Distress: None Mental Status: Positive for: Alert and Oriented X 3 - Systems Exam Head: Present: Atraumatic, Normocephalic Pupils: Present: PERRL Extroacular Muscles: Present: EOMI Conjunctiva: Present: Normal Mouth: Present: Dry Neck: Present: Normal Range of Motion Respiratory/Chest: Present: Clear to Auscultation, Good Air Exchange. No: Respiratory Distress, Accessory Muscle Use Cardiovascular: Present: Regular Rate and Rhythm, Normal S1, S2. No: Murmurs Abdomen: Present: Tenderness (supraumbilical tenderness) Back: Present: Normal Inspection Upper Extremity: Present: Normal Inspection. No: Cyanosis, Edema Lower Extremity: Present: Normal Inspection. No: Edema Neurological: Present: GCS=15, CN II-XII Intact, Speech Normal Skin: Present: Warm, Dry, Normal Color. No: Rashes Psychiatric: Present: Alert, Oriented x 3, Normal Insight, Normal Concentration Medical Decision Making ED Course and Treatment: 03/25/17 11:58 Impression: 41 year old male with chronic supraumbilical pain and sore throat. Physical exam shows dry mucous membranes and supraumbilical tenderness. Plan: -- Abd/Pelvis CT -- Abdominal Ultrasound -- Bentyl -- Pepcid -- Dilaudid -- IV Fluids -- Reassess and disposition Prior Visits: Notes and results from previous visits were reviewed. Patient was last seen in the emergency department on 02/23/2017 for abdominal pain. Patient left AMA. Progress Notes: 03/25/17 16:21 serial bowel exams benign pt labs largely wnl u/s (+) for chrocni fatty liver lipase (-) for pancreatitis pt ststates pain of chronic familiary if albeit slightly worse. feels better s/p analgesia / po tolerant after having drank full gastrograffin volume. Will be advised to [place] [facility] [place] on regular rx. - Lab Interpretations Lab Results: 03/25/17 10:39 03/25/17 10:39 Lab Results 03/25/17 10:39: Sodium 139, Potassium 3.8, Chloride 103, Carbon Dioxide 27, Anion Gap 13, BUN 15, Creatinine 1.0, Est GFR ( Amer) > 60, Est GFR (Non- Af Amer) > 60, Random Glucose 105, Calcium 10.2, Total Bilirubin 0.7, AST 18, ALT 26, Alkaline Phosphatase 127 H, Total Protein 8.2, Albumin 3.7, Globulin 4.5 , Albumin/Globulin Ratio 0.8 L, Lipase 66 03/25/17 10:39: PT 17.7 H, INR 1.53 H, APTT 45.1 H 03/25/17 10:39: WBC 10.2, RBC 4.49, Hgb 11.4 L, Hct 37.7 L, MCV 84.0, MCH 25.4, MCHC 30.2 L, RDW 15.6 H, Plt Count 359, MPV 9.1, Gran % 78.7 H, Lymph % (Auto) 11.3 L, [place] % (Auto) 8.8 H, Eos % (Auto) 1.0 L, Baso % (Auto) 0.2, Gran # 8.03 H, Lymph # (Auto) 1.2, [place] # (Auto) 0.9 H, Eos # (Auto) 0.1, Baso # (Auto) 0.02 - RAD Interpretation Radiology Orders: 03/25/17 11:41 ABDOMEN COMPLETE [US] Stat 03/25/17 15:13 ABDOMEN MULTIPLE VIEW (w/OBL) [RAD] Stat - Medication Orders Current Medication Orders: Discontinued Medications Dicyclomine HCl (Bentyl) 20 mg PO ONCE ONE Stop: 03/25/17 11:40 Last Admin: 03/25/17 11:50 Dose: 20 mg Famotidine (Pepcid) 20 mg IVP STAT STA Stop: 03/25/17 10:36 Last Admin: 03/25/17 10:50 Dose: Hydromorphone HCl (Dilaudid) 1 mg IVP STAT STA Stop: 03/25/17 11:39 Last Admin: 03/25/17 11:50 Dose: 1 mg MAR Pain Assessment Document 03/25/17 11:50 SE (Rec: 03/25/17 11:50 SE [id number]) Pain Reassessment Is this a pain reassessment? No Sleep Is patient sleeping during reassessment? No Presence of Pain Presence of Pain Yes Pain Scale Used Pain Scale Used Numeric IVP Administration Document 03/25/17 11:50 SE (Rec: 03/25/17 11:50 SE [id number]) Charges for Administration # of IVP Administrations 1 Hydromorphone HCl (Dilaudid) 1 mg IVP STAT STA Stop: 03/25/17 15:13 Sodium Chloride (Sodium Chloride 0.9%) 1,000 mls @ 999 mls/hr IV .Q1H1M STA Stop: 03/25/17 11:36 Last Admin: 03/25/17 10:50 Dose: 999 mls/hr eMAR Start Stop Document 03/25/17 10:50 SE (Rec: 03/25/17 10:50 SE [id number]) Intravenous Solution Start Date 03/25/17 Start Time 10:50 - Scribe Statement The provider has reviewed the documentation as recorded by the Iliana Gibbs Provider Scribe Attestation: All medical record entries made by the Scribe were at my direction and personally dictated by me. I have reviewed the chart and agree that the record accurately reflects my personal performance of the history, physical exam, medical decision making, and the department course for this patient. I have also personally directed, reviewed, and agree with the discharge instructions and disposition. Disposition/Present on Arrival - Present on Arrival Any Indicators Present on Arrival: No History of DVT/PE: No History of Uncontrolled Diabetes: No Urinary Catheter: No History of Decub. Ulcer: No History Surgical Site Infection Following: None - Disposition Have Diagnosis and Disposition been Completed?: Yes Diagnosis: Abdominal gas pain, Fatty liver, Gastritis Disposition: HOME/ ROUTINE Disposition Time: 16:23 Patient Plan: Discharge Condition: IMPROVED Discharge Instructions (ExitCare): Gas and Bloating (ED), Gastritis (DC) Print Language: GREENLANDIC Additional Instructions: Please follow up with Dr. Vasquez. Advance your diet slowly with lots of hot herbal teas/soups/banans/crackers/ toast inintally avoiding all meats and dairy products. Prescriptions: Dicyclomine [Bentyl] 20 mg PO Q8 PRN #16 tab PRN Reason: Pain, Mild (1-3) Famotidine [Pepcid] 20 mg PO BID PRN #20 tab PRN Reason: Dyspepsia oxyCODONE [oxyCODONE Immediate Release Tab] 10 mg PO Q6 PRN #10 tab PRN Reason: Pain, Severe (8-10) Referrals: Jose Carson MD [Primary Care Provider] - Follow up with primary Forms: [employer] (Malaysian)
[2017-03-25] MEDS: HYDROmorphone 1 mg/ml ISec IVP STA (11:50)
--- NOTE | 2017-03-25 13:56 | US ---
HISTORY: ruq sono /pancreas COMPARISON: 12/02/2016 TECHNIQUE: Grayscale imaging was performed. FINDINGS: LIVER: Measures 16.0 cm. There is diffuse increased echogenicity of the liver parenchyma. No mass. No intrahepatic bile duct dilatation. GALLBLADDER: Surgically absent. COMMON BILE DUCT: Measures 5.6 mm. No stones. Mild dilatation. PANCREAS: Unremarkable as visualized. No mass. No ductal dilatation. RIGHT KIDNEY: Measures 10.9cm. Normal echogenicity. No calculus, mass, or hydronephrosis. LEFT KIDNEY: Measures 10.4cm. Normal echogenicity. No calculus, mass, or hydronephrosis. SPLEEN: Normal in size and contour. No mass. AORTA: No aneurysmal dilatation. IVC: Unremarkable. OTHER FINDINGS: None. IMPRESSION: Mild hepatomegaly. Diffuse increased echogenicity in the liver may reflect hepatic steatosis however parenchymal infectious/ inflammatory etiologies cannot be entirely excluded. Clinical and laboratory correlation is advised. Status post cholecystectomy, mild dilatation of the common bile duct is in keeping with postcholecystectomy status.
[2017-03-25] MEDS ORDERED: HYDROmorphone 1 mg/ml ISec IVP STA (15:12)
[2017-03-25 15:19] VITALS: BP 135/69
[2017-03-25 16:36] VITALS: PULSE 78; O2SAT 98
== END 2017-03-25 16:38 | disposition home or self-care (01) ==
LOC: ED 08:58
DX: K29.70 Gastritis, unspecified, without bleeding (principal); K76.0 Fatty (change of) liver, not elsewhere classified
CPT/HCPCS: 76700; 80053; 83690; 85025; 85610; 85730; 96374; 99284; J1170; J7040; Q9966

== ENCOUNTER 2017-03-27 17:24 | Emergency (ER) | payer BC ==
[2017-03-27 17:25] VITALS: BMI 38.0
--- NOTE | 2017-03-27 17:45 | ED PDOC ---
Arrival/HPI - General Time Seen by Provider: 03/27/17 17:44 Historian: Patient - History of Present Illness Narrative History of Present Illness (Text): 03/27/17 17:45 This 41 year old male, whose past medical history includes auto immune disease, anemia, and inflammation to pancreas and L liver, presents to the emergency department complaining sore throat x 1 day. Patient stated sore throat is mild and getting better, but the main reason he came was to get a work note. Patient denies sob, cp, abdominal pain, urinary symptoms, GE, n/v, fever or abnormal gait. Time/Duration: Other (see hpi) Context: Home Past Medical History - Provider Review Nursing Documentation Reviewed: Yes - Past History Past History: Non-Contributing - Infectious Disease Hx of Infectious Diseases: None - Tetanus Immunization Tetanus Immunization: Unknown - Past Medical History Past Medical History: No Previous - Cardiac Hx Hypertension: No Hx Pacemaker: No - Pulmonary Hx Asthma: Yes - Neurological Hx Neurological Disorder: No - HEENT Hx HEENT Disorder: No - Renal Hx Renal Disorder: No - Endocrine/Metabolic Hx Endocrine Disorders: Yes Other/Comment: Inflammation of the pancreas and L side of the Liver, Auto immune disease - Hematological/Oncological Hx Anemia: Yes - Integumentary Hx Dermatological Disorder: No - Musculoskeletal/Rheumatological Hx Musculoskeletal Disorders: No Hx Falls: No - Gastrointestinal Hx Gall Bladder Disease: Yes (LAP ALTAGRACIA ON 06/06/15) Hx Pancreatitis: Yes - Genitourinary/Gynecological Hx Genitourinary Disorders: No - Psychiatric Hx Depression: No Hx Substance Use: No - Past Surgical History Past Surgical History: No Previous - Surgical History Hx Cholecystectomy: Yes - Anesthesia Hx Anesthesia: Yes Hx Anesthesia Reactions: No Hx Malignant Hyperthermia: No - Suicidal Assessment Feels Threatened In Home Enviroment: No Family/Social History - Physician Review Nursing Documentation Reviewed: Yes Family/Social History: Other (noncontributory) Smoking Status: Never Smoked Hx Alcohol Use: No Hx Substance Use: No Hx Substance Use Treatment: No Allergies/Home Meds Allergies/Adverse Reactions: Allergies No Known Allergies Allergy (Verified 03/27/17 17:56) Home Medications: Home Meds Medication Instructions Recorded Confirmed Ursodiol 300 mg PO BID 08/21/15 03/27/17 Prednisone [Gregorio] 10 mg PO BID 12/18/15 03/27/17 Calcium Carbonate/Vitamin D3 1 each PO BID 12/02/16 03/27/17 [Calcium 600 + Vit D Tablet] Cholecalciferol [Vitamin D] 6,000 iu PO BID 12/02/16 03/27/17 Dabigatran [Pradaxa] 150 mg PO BID 12/02/16 03/27/17 Omeprazole [Prilosec] 40 mg PO BID 12/02/16 03/27/17 Oxycodone HCl/Acetaminophen 10 mg PO PRN 12/02/16 03/27/17 [Endocet 325 mg-10 mg] Review of Systems - Review of Systems Constitutional: Normal. absent: Fatigue, Weight Change, Fevers Eyes: Normal ENT: Sore Throat Respiratory: Normal. absent: SOB, Cough Cardiovascular: Normal Gastrointestinal: Normal. absent: Abdominal Pain, Nausea, Vomiting Genitourinary Male: Normal Musculoskeletal: Normal Skin: Normal Neurological: Normal Endocrine: Normal Hemo/Lymphatic: Normal Psychiatric: Normal Physical Exam Vital Signs Temp Pulse Resp BP Pulse Ox 03/27/17 17:55 98.1 F 91 H 18 128/72 98 Temperature: Afebrile Blood Pressure: Normal Pulse: Regular Respiratory Rate: Normal Appearance: Positive for: Well-Appearing, Non-Toxic, Comfortable Pain Distress: None Mental Status: Positive for: Alert and Oriented X 3 - Systems Exam Head: Present: Atraumatic, Normocephalic Pupils: Present: PERRL Extroacular Muscles: Present: EOMI Conjunctiva: Present: Normal Mouth: Present: Moist Mucous Membranes Pharnyx: Present: Normal. No: ERYTHEMA, EXUDATE, TONSILS ENLARGED, Peritonsilar Swelling, Uvular Deviation, Muffled/Hoarse Voice, [place], Soft Palate/Uvular Edema Nose (External): Present: Atraumatic Nose (Internal): Present: Normal Inspection Neck: Present: Normal Range of Motion Respiratory/Chest: Present: Clear to Auscultation, Good Air Exchange. No: Respiratory Distress, Accessory Muscle Use Cardiovascular: Present: Regular Rate and Rhythm, Normal S1, S2. No: Murmurs Abdomen: Present: Normal Bowel Sounds. No: Tenderness, Distention, Peritoneal Signs Back: Present: Normal Inspection Upper Extremity: Present: Normal Inspection. No: Cyanosis, Edema Lower Extremity: Present: Normal Inspection. No: Edema Neurological: Present: GCS=15, CN II-XII Intact, Speech Normal Skin: Present: Warm, Dry, Normal Color. No: Rashes Psychiatric: Present: Alert, Oriented x 3, Normal Insight, Normal Concentration Medical Decision Making ED Course and Treatment: 03/27/17 18:18 Re-evaluation. Patient feels better. Discussed results and plan with patient who expresses understanding. All questions answered and there is agreement with the plan to discharge home with instructions. Patient stable for discharge. Return if symptoms persist or worsen. Re-evaluation Time: 18:18 Reassessment Condition: Re-examined, Improved Disposition/Present on Arrival - Present on Arrival Any Indicators Present on Arrival: No History of DVT/PE: No History of Uncontrolled Diabetes: No Urinary Catheter: No History Surgical Site Infection Following: None - Disposition Have Diagnosis and Disposition been Completed?: Yes Diagnosis: Upper respiratory infection Disposition: HOME/ ROUTINE Disposition Time: 18:18 Patient Plan: Discharge Condition: GOOD Discharge Instructions (ExitCare): Upper Respiratory Infection (ED) Additional Instructions: Call private doctor for follow up visit in 1-2 days. Drink plenty of fluids and food. rest. return to emergency if symptoms worsen. Return to emergency if you have fever. Take over the counter Motrin for sore throat as needed. Referrals: Jose Carson MD [Staff Provider] - Follow up with primary Forms: [employer] NOTE
[2017-03-27 17:56] VITALS: BP 128/72; PULSE 91; RESP 18; TEMP 98.1; O2SAT 98
== END 2017-03-27 18:31 | disposition home or self-care (01) ==
LOC: ED 17:24
DX: J06.9 Acute upper respiratory infection, unspecified (principal)

== ENCOUNTER 2017-05-19 17:35 | Emergency (ER) | payer BC ==
[2017-05-19 18:26] VITALS: TEMP 99.4; BMI 35.7
[2017-05-19] MEDS ORDERED: Sodium Chloride 0.9% 1,000 ML IV STA (18:37)
[2017-05-19] MEDS ORDERED: Oxycodone/Acetaminophen 5/325 mg Tab PO STA (18:38)
[2017-05-19 19:40] LABS: ALB/GLOB RATIO 0.8 (1.1-1.8); ALBUMIN 3.9 g/dL (3.0-4.8); ALT/SGPT 22 U/L (7-56); AMYLASE 81 U/L (35-125); AST/SGOT 25 U/L (17-59); BASO # 0.02 K/mm3 (0.0-2.0); BASO % 0.2 % (0.0-3.0); BLOOD UREA NITROGEN 13 mg/dL (7-21); CALCIUM 9.9 mg/dL (8.4-10.5); EOS # 0.1 (0.0-0.7); EOS % 1.2 % (1.5-5.0); GFR AFRICAN-AMERICAN > 60; GFR NON-AFRICAN AMERICAN > 60; GRAN # 7.58 (1.4-6.5); GRAN % 66.9 % (50.0-68.0); HEMOGLOBIN 11.2 g/dL (14.0-18.0); LIPASE 80 U/L (23-300); LYMPH # 2.8 (1.2-3.4); LYMPH % 24.5 % (22.0-35.0); MEAN CELL VOLUME 81.4 fl (80.0-105.0); MEAN CORPUSCULAR HEMOGLOBIN 25.3 pg (25.0-35.0); MEAN CORPUSCULAR HGB CONC 31.1 g/dl (31.0-37.0); MEAN PLATELET VOLUME 9.1 fl (7.0-11.0); MONO # 0.8 (0.1-0.6); MONO % 7.2 % (1.0-6.0); RBC 4.42 10^6/uL (3.5-6.1); RED CELL DISTRIBUTION WIDTH 15.5 % (11.5-14.5); WHITE BLOOD COUNT 11.3 10^3/ul (4.5-11.0)
--- NOTE | 2017-05-19 19:52 | ED PDOC ---
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 pt states that he takes percocet for pain at night. pt states today the pain increased. pt did not take any medications for pain today. pt is requesting "strong pain medication". pt denies fever/chills. denies n/v/d/c. no urinary symptoms. pt states pain is similar to his chronic pain but has slightly increased. pt denies fever/chills. no other complaints. Time/Duration: Prior to Arrival Symptom Onset: Gradual Symptom Course: Worsening Quality: Aching, Stabbing Severity Level: 6 Past Medical History - Provider Review Nursing Documentation Reviewed: Yes - Travel History Have you recently traveled outside [place] w/in the past 3 mons?: No - Past History Past History: Non-Contributing - Infectious Disease Hx of Infectious Diseases: None - Tetanus Immunization Tetanus Immunization: Unknown - Past Medical History Past Medical History: No Previous - Cardiac Hx Hypertension: No Hx Pacemaker: No - Pulmonary Hx Asthma: Yes - Neurological Hx Neurological Disorder: No - HEENT Hx HEENT Disorder: No - Renal Hx Renal Disorder: No - Endocrine/Metabolic Hx Endocrine Disorders: Yes Other/Comment: Inflammation of the pancreas and L side of the Liver, Auto immune disease - Hematological/Oncological Hx Anemia: Yes - Integumentary Hx Dermatological Disorder: No - Musculoskeletal/Rheumatological Hx Musculoskeletal Disorders: No Hx Falls: No - Gastrointestinal Hx Gall Bladder Disease: Yes (LAP ALTAGRACIA ON 06/06/15) Hx Pancreatitis: Yes - Genitourinary/Gynecological Hx Genitourinary Disorders: No - Psychiatric Hx Depression: No Hx Substance Use: No - Past Surgical History Past Surgical History: No Previous - Surgical History Hx Cholecystectomy: Yes - Anesthesia Hx Anesthesia: Yes Hx Anesthesia Reactions: No Hx Malignant Hyperthermia: No - Suicidal Assessment Feels Threatened In Home Enviroment: No Family/Social History - Physician Review Nursing Documentation Reviewed: Yes Family/Social History: Unknown Family HX Smoking Status: Never Smoked Hx Alcohol Use: No Hx Substance Use: No Hx Substance Use Treatment: No Allergies/Home Meds Allergies/Adverse Reactions: Allergies No Known Allergies Allergy (Verified 05/19/17 18:10) Home Medications: Home Meds Medication Instructions Recorded Confirmed Ursodiol 300 mg PO BID 08/21/15 05/19/17 Prednisone [Gregorio] 5 mg PO BID 12/18/15 05/19/17 Calcium Carbonate/Vitamin D3 1 each PO BID 12/02/16 05/19/17 [Calcium 600 + Vit D Tablet] Dabigatran [Pradaxa] 150 mg PO BID 12/02/16 05/19/17 Review of Systems - Review of Systems Constitutional: absent: Fatigue, Fevers Respiratory: absent: SOB, Cough Cardiovascular: absent: Chest Pain, Palpitations Gastrointestinal: Abdominal Pain. absent: Constipation, Diarrhea, Nausea, Vomiting Genitourinary Male: absent: Dysuria, Frequency, Hematuria Musculoskeletal: absent: Arthralgias, Back Pain, Neck Pain Skin: absent: Rash, Pruritis Neurological: absent: Headache, Dizziness Psychiatric: absent: Anxiety, Depression, Suicidal Ideation Physical Exam Vital Signs Reviewed: Yes Vital Signs Temp Pulse Resp BP Pulse Ox 05/19/17 21:38 80 16 130/79 98 05/19/17 18:13 99.4 F 90 18 133/84 99 05/19/17 18:09 99.4 F 94 H 18 133/84 96 Temperature: Afebrile Blood Pressure: Normal Pulse: Regular Respiratory Rate: Normal Appearance: Positive for: Well-Appearing, Non-Toxic, Comfortable Pain Distress: None Mental Status: Positive for: Alert and Oriented X 3 - Systems Exam Head: Present: Atraumatic Mouth: Present: Moist Mucous Membranes Neck: Present: Normal Range of Motion Respiratory/Chest: Present: Clear to Auscultation, Good Air Exchange. No: Respiratory Distress, Accessory Muscle Use Cardiovascular: Present: Regular Rate and Rhythm, Normal S1, S2. No: Murmurs Abdomen: Present: Tenderness (+ ruq/epigastric and LUQ tenderness), Normal Bowel Sounds, Guarding (voluntary). No: Distention, Peritoneal Signs, Rebound Back: Present: Normal Inspection. No: CVA Tenderness, Midline Tenderness, Paraspinal Tenderness Upper Extremity: Present: Normal ROM Lower Extremity: Present: Normal ROM Neurological: Present: GCS=15, Speech Normal Skin: Present: Warm, Dry, Normal Color. No: Rashes Psychiatric: Present: Alert, Oriented x 3 Medical Decision Making ED Course and Treatment: 05/19/17 20:27 Patient is nontoxic well appearing with stable vital signs presenting with chronic abdominal pain that has worsened. CBC wbc; 11.3 CMP: alk phose; 139 Amylase wnl Lipase wnl Urinalysis: pending CAT scan: pending pt was given percocet for pain; pt states he wants "stronger" pain medication. Patient reassessment:pt is non toxic well appearing; no distress. resting comfortably. Discussed all results with patient in depth Impression: Abdominal pain 05/19/17 20:56 case signed out to dr. lozano pending CT abd/pelvis and urine and re-evaluation - Lab Interpretations Lab Results: 05/19/17 19:10 05/19/17 19:10 Lab Results 05/19/17 21:13: Urine Color Yellow, Urine Appearance Clear, Urine pH 6.5, Ur Specific [place] 1.010, Urine Protein Negative, Urine Glucose (UA) Negative, Urine Ketones Negative, Urine Blood Negative, Urine Nitrate Negative, Urine Bilirubin Negative, Urine Urobilinogen 0.2, Ur Leukocyte Esterase Negative 05/19/17 19:10: WBC 11.3 H, RBC 4.42, Hgb 11.2 L, Hct 36.0 L, MCV 81.4, MCH 25.3 , MCHC 31.1, RDW 15.5 H, Plt Count 464 H, MPV 9.1, Gran % 66.9, Lymph % (Auto) 24.5, [place] % (Auto) 7.2 H, Eos % (Auto) 1.2 L, Baso % (Auto) 0.2, Gran # 7.58 H , Lymph # (Auto) 2.8, [place] # (Auto) 0.8 H, Eos # (Auto) 0.1, Baso # (Auto) 0.02 05/19/17 19:10: Sodium 142, Potassium 3.9, Chloride 102, Carbon Dioxide 30, Anion Gap 14, BUN 13, Creatinine 1.0, Est GFR ( Amer) > 60, Est GFR (Non- Af Amer) > 60, Random Glucose 87, Calcium 9.9, Total Bilirubin 0.3, AST 25, ALT 22, Alkaline Phosphatase 139 H, Total Protein 8.8 H, Albumin 3.9, Globulin 4.9, Albumin/Globulin Ratio 0.8 L, Amylase 81, Lipase 80 - RAD Interpretation Radiology Orders: 05/19/17 18:37 ABD & PELVIS IV CONTRAST ONLY [CT] Stat - Medication Orders Current Medication Orders: Discontinued Medications Sodium Chloride (Sodium Chloride 0.9%) 1,000 mls @ 999 mls/hr IV .Q1H1M STA Stop: 05/19/17 19:37 Last Admin: 05/19/17 19:13 Dose: 999 mls/hr eMAR Start Stop Document 05/19/17 19:13 HI (Rec: 05/19/17 19:13 HI [id number]) Intravenous Solution Start Date 05/19/17 Start Time 19:13 Morphine Sulfate (Morphine) 2 mg IVP STAT STA Stop: 05/19/17 21:46 Last Admin: 05/19/17 22:07 Dose: 2 mg MAR Pain Assessment Document 05/19/17 22:07 HI (Rec: 05/19/17 22:07 HI [id number]) Pain Reassessment Is this a pain reassessment? Yes Sleep Is patient sleeping during reassessment? No Presence of Pain Presence of Pain Yes Location Pain Location Body Site Abdomen IVP Administration Document 05/19/17 22:07 HI (Rec: 05/19/17 22:07 HI [id number]) Charges for Administration # of IVP Administrations 1 Oxycodone/Acetaminophen (Percocet 5/325 Mg Tab) 1 tab PO STAT STA Stop: 05/19/17 18:39 Last Admin: 05/19/17 19:13 Dose: 1 tab MAR Pain Assessment Document 05/19/17 19:13 HI (Rec: 05/19/17 19:13 HI [id number]) Pain Reassessment Is this a pain reassessment? No Sleep Is patient sleeping during reassessment? No Presence of Pain Presence of Pain Yes Location Pain Location Body Site Abdomen Re-Assess: MAR Pain Assessment Document 05/19/17 20:13 HI (Rec: 05/19/17 20:57 HI [id number]) Pain Reassessment Is this a pain reassessment? Yes Sleep Is patient sleeping during reassessment? No Presence of Pain Presence of Pain No Disposition/Present on Arrival - Present on Arrival Any Indicators Present on Arrival: No History of DVT/PE: No History of Uncontrolled Diabetes: No Urinary Catheter: No History of Decub. Ulcer: No History Surgical Site Infection Following: None - Disposition Have Diagnosis and Disposition been Completed?: Yes Diagnosis: Chronic abdominal pain Disposition: HOME/ ROUTINE Disposition Time: 22:10 Patient Plan: Discharge Condition: GOOD Discharge Instructions (ExitCare): Acute Abdomen (Belly Pain) Forms: [facility] (Georgian), WORK NOTE
[2017-05-19 21:20] LABS: PH,URINE 6.5 (4.7-8.0); URINE APPEARANCE CLEAR (CLEAR); URINE BILIRUBIN NEGATIVE (NEGATIVE); URINE BLOOD NEGATIVE (NEGATIVE); URINE COLOR YELLOW (YELLOW); URINE GLUCOSE (UA) NEGATIVE (NEGATIVE); URINE LEUKOCYTE ESTERASE NEGATIVE Leu/uL (NEGATIVE); URINE PROTEIN NEGATIVE mg/dL (<30 mg/dL); URINE UROBILINOGEN 0.2 E.U./dL (<1 E.U./dL)
[2017-05-19 21:38] VITALS: BP 130/79; PULSE 80; RESP 16; O2SAT 98
--- NOTE | 2017-05-19 21:41 | CT ---
EXAM: CT Abdomen and Pelvis With Intravenous Contrast EXAM DATE/TIME: 05/19/2017 6:37 PM CLINICAL HISTORY: The patient age is 41 years old and is male; Pain; Abdominal pain; Generalized; Prior surgery; Surgery date: 6+ months; Surgery type: HX cholecystectomy; Additional info: Abd pain Facility exam id and description: Ct abdpelciv abd pelvis iv contrast only TECHNIQUE: Axial computed tomography images of the abdomen and pelvis with intravenous contrast. All CT scans at this facility use one or more dose reduction techniques, viz.: automated exposure control; ma/kV adjustment per patient size (including targeted exams where dose is matched to indication; i.e. head); or iterative reconstruction technique. Coronal and sagittal reformatted images were created and reviewed. CONTRAST: 150 mL of omnipaque 350 administered intravenously. COMPARISON: CT - ABD PELVIS IV CONTRAST ONLY 2016-10-14 21:31 FINDINGS: Lower thorax: Atelectatic changes are identified of the bilateral lung bases. There is elevation of the right hemidiaphragm. ABDOMEN: Liver: There is heterogeneous density of the liver again visualized, with periportal edema. Hepatomegaly. The liver measured 18.7 cm in the craniocaudad dimension. Gallbladder and bile ducts: There is stranding and small amount of fluid anterior to the gallbladder fossa, which has progressed. This may be inflammatory, although a biliary leak cannot be excluded. Surgical clips are identified within the gallbladder fossa, compatible with cholecystectomy. The common bile duct is dilated measuring 1 cm in diameter. Pancreas: A few subcentimeter hypodense lesions are identified within the tail the pancreas, without progression. Within the distal tail of the pancreas, this has a density of -25 HU, suggestive of a lipoma. The additional lesions are too small to characterize further. Spleen: No splenomegaly. Adrenals: No mass. Kidneys and ureters: No hydronephrosis. No solid mass. Stomach and bowel: There is a small infraumbilical hernia containing a short segment of small bowel, without small bowel obstruction. There is prominence of subcutaneous fat within the cecum and proximal ascending colon. This can be associated with inflammatory bowel disease. No acute pericolonic stranding is identified. Appendix: No findings to suggest acute appendicitis. PELVIS: Bladder: No mass. Reproductive: Unremarkable as visualized. ABDOMEN and PELVIS: Intraperitoneal space: No free air. Bones/joints: Hypertrophic degenerative changes are noted within the spine. Soft tissues: There is herniation of fat into the left inguinal canal. Vasculature: No abdominal aortic aneurysm. Lymph nodes: Nonspecific enlarged inguinal lymph nodes are again visualized bilaterally. A few mildly enlarged external iliac chain lymph nodes are identified. Enlarged lymph nodes are visualized within the upper abdomen, the largest measuring 2.0 cm in length, without progression. IMPRESSION: 1. There is stranding and small amount of fluid anterior to the gallbladder fossa, which has progressed. This may be inflammatory, although a biliary leak cannot be excluded. Biliary dilatation. Cholecystectomy. 2. There is heterogeneous density of the liver again visualized, with periportal edema. Hepatomegaly. 3. A few subcentimeter hypodense lesions are identified within the tail the pancreas, without progression. Within the distal tail of the pancreas, this has a density of -25 HU, suggestive of a lipoma. The additional lesions are too small to characterize further. 4. There is prominence of subcutaneous fat within the cecum and proximal ascending colon. This can be associated with inflammatory bowel disease. No acute pericolonic stranding is identified. 5. There is a small infraumbilical hernia containing a short segment of small bowel, without small bowel obstruction. 6. Nonspecific enlarged inguinal lymph nodes are again visualized bilaterally. A few mildly enlarged external iliac chain lymph nodes are identified. Enlarged lymph nodes are visualized within the upper abdomen, the largest measuring 2.0 cm in length, without progression. 7. Additional CT findings described above.
[2017-05-19] MEDS ORDERED: Morphine 2 mg/ml ISec IVP STA (21:45)
== END 2017-05-19 22:19 | disposition home or self-care (01) ==
LOC: ED 17:35
DX: R10.9 Unspecified abdominal pain (principal); G89.29 Other chronic pain; Z90.49 Acquired absence of other specified parts of digestive tract
CPT/HCPCS: 74177; 80053; 81003; 82150; 83690; 85025; 96374; 99283; J2270; J7040; Q9967

== ENCOUNTER 2017-06-12 06:12 | Emergency (ER) | payer OTHER ==
[2017-06-12 06:12] VITALS: BMI 38.0
[2017-06-12 06:28] VITALS: TEMP 99.9
--- NOTE | 2017-06-12 07:20 | ED PDOC ---
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 Patient reports that at 3AM the night before last, his abdominal pain flared up. He called off from work yesterday due to the pain. He tried his home oxycodone, which usually provides relief, but this time did not. He is requesting dilaudid or morphine. He denies fever, chills, nausea, vomiting, diarrhea, constipation. Abdominal pain is diffuse, constant, 10/10 in severity despite taking oxycodone at home. Exacerbated by some foods, no particular remitting factors. (Teri Torres) Past Medical History - Provider Review Nursing Documentation Reviewed: Yes - Travel History Have you recently traveled outside [place] w/in the past 3 mons?: No - Infectious Disease Hx of Infectious Diseases: None - Tetanus Immunization Tetanus Immunization: Unknown - Cardiac Hx Hypertension: No Hx Pacemaker: No - Pulmonary Hx Asthma: Yes - Neurological Hx Neurological Disorder: No - HEENT Hx HEENT Disorder: No - Renal Hx Renal Disorder: No - Endocrine/Metabolic Hx Endocrine Disorders: Yes Other/Comment: Inflammation of the pancreas and L side of the Liver, Auto immune disease - Hematological/Oncological Hx Anemia: Yes - Integumentary Hx Dermatological Disorder: No - Musculoskeletal/Rheumatological Hx Musculoskeletal Disorders: No Hx Falls: No - Gastrointestinal Hx Gall Bladder Disease: Yes (LAP ALTAGRACIA ON 06/06/15) Hx Pancreatitis: Yes - Genitourinary/Gynecological Hx Genitourinary Disorders: No - Psychiatric Hx Depression: No Hx Substance Use: No - Past Surgical History Past Surgical History: No Previous - Surgical History Hx Cholecystectomy: Yes - Anesthesia Hx Anesthesia: Yes Hx Anesthesia Reactions: No Hx Malignant Hyperthermia: No - Suicidal Assessment Feels Threatened In Home Enviroment: No <Teri Torres - Last Filed: 06/12/17 12:25> - Provider Review Nursing Documentation Reviewed: Yes - Past History Past History: No Previous <Paresh Taylor - Last Filed: 06/12/17 20:01> - Patient History Narrative Patient History: IgG4 related autoimmune disease (Teri Torres) Family/Social History - Physician Review Nursing Documentation Reviewed: Yes Family/Social History: Unknown Family HX Smoking Status: Never Smoked Hx Alcohol Use: No Hx Substance Use: No Hx Substance Use Treatment: No <Teri Torres - Last Filed: 06/12/17 12:25> - Physician Review Nursing Documentation Reviewed: Yes <Paresh Taylor - Last Filed: 06/12/17 20:01> Allergies/Home Meds <Teri Torres - Last Filed: 06/12/17 12:25> <Paresh Taylor - Last Filed: 06/12/17 20:01> Allergies/Adverse Reactions: Allergies No Known Allergies Allergy (Verified 05/19/17 18:10) Home Medications: Home Meds Medication Instructions Recorded Confirmed Ursodiol 300 mg PO BID 08/21/15 06/12/17 Prednisone [Gregorio] 5 mg PO BID 12/18/15 06/12/17 Calcium Carbonate/Vitamin D3 1 each PO BID 12/02/16 06/12/17 [Calcium 600 + Vit D Tablet] Dabigatran [Pradaxa] 150 mg PO BID 12/02/16 06/12/17 Review of Systems - Review of Systems Constitutional: Normal Eyes: Normal ENT: Normal Respiratory: Normal Cardiovascular: Normal Gastrointestinal: Abdominal Pain, Nausea. absent: Stool Changes, Constipation, Diarrhea, Vomiting Genitourinary Male: Normal Musculoskeletal: Normal Skin: Normal Neurological: Normal Endocrine: Normal Hemo/Lymphatic: Normal Psychiatric: Normal <Teri Torres - Last Filed: 06/12/17 12:25> Physical Exam Temperature: Afebrile Blood Pressure: Hypertensive Pulse: Regular Respiratory Rate: Normal Appearance: Positive for: Well-Appearing, Non-Toxic, Comfortable Pain Distress: None Mental Status: Positive for: Alert and Oriented X 3 - Systems Exam Head: Present: Atraumatic, Normocephalic Pupils: Present: PERRL Extroacular Muscles: Present: EOMI Conjunctiva: Present: Normal Mouth: Present: Moist Mucous Membranes Neck: Present: Normal Range of Motion Respiratory/Chest: Present: Clear to Auscultation. No: Respiratory Distress, Accessory Muscle Use Cardiovascular: Present: Regular Rate and Rhythm, Normal S1, S2. No: Murmurs Abdomen: Present: Tenderness (improves somewhat when examined while distracted) , Normal Bowel Sounds. No: Distention, Peritoneal Signs, Rebound, Guarding Upper Extremity: Present: Normal Inspection. No: Cyanosis, Edema Lower Extremity: Present: Normal Inspection. No: Edema, CALF TENDERNESS Neurological: Present: GCS=15, CN II-XII Intact, Speech Normal Skin: Present: Warm, Dry, Normal Color Psychiatric: Present: Alert, Oriented x 3, Normal Insight, Normal Concentration <Teri Torres - Last Filed: 06/12/17 12:25> Vital Signs Reviewed: Yes <Paresh Taylor - Last Filed: 06/12/17 20:01> Vital Signs Temp Pulse Resp BP Pulse Ox 06/12/17 12:00 79 18 127/79 98 06/12/17 10:00 78 18 145/79 98 06/12/17 08:12 78 18 135/75 98 06/12/17 06:20 99.9 F H 99 H 17 151/88 H 100 Medical Decision Making <Teri Torres - Last Filed: 06/12/17 12:25> Re-evaluation Time: 12:00 Reassessment Condition: Improved - Lab Interpretations I have reviewed the lab results: Yes Interpretation: Abnormal lab values (elevated infl markers) - EKG Interpretation Interpreted by ED Physician: Yes Type: 12 lead EKG Comparison: Similar to previous EKG <Paresh Taylor - Last Filed: 06/12/17 20:01> ED Course and Treatment: 06/12/17 07:23 Impression: Abdominal pain Differential diagnosis includes but is not limited to: autoimmune pancreatitis flare, autoimmune hepatitis flare, malingering Plan -- Labs; CBC, CMP, ESR, CRP, lipase, PT/PTT -- IVF -- Analgesics, antiemetics -- NPO -- Reassess and dispo Progress Note: -- Ordered 8mg morphine, patient requesting zofran and pepcid with morphine -- Call placed for Dr. Leigh, patient's summer sessions director at [facility]; left a message with medical office secretary for call back -- Patient pain improved to 5/10 in severity, still requesting morphine 2mg 06/12/17 11:39 -- Call back received from Dr. Leigh who reports that patient is reliable, compliant, generally not drug seeking, though often presents with pain out of proportion to exam. 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 Patient also received retiximab within the past 6 months. -- Dr. Leigh recommends pain control and short course of increased dose of steroids, and follow up with him. -- Ordered 2mg morphine for persistent pain 06/12/17 12:06 -- Pain slightly improved -- Ordered one dose of prednisone 50mg PO and Protonix 40mg IVP -- Patient will be discharged with additional 4 day supply prednisone 40mg daily , to be taken in addition to his 10mg daily for total 50mg PO daily -- Patient to follow up with his summer sessions director on Thursday (Teri Torres) 06/12/17 In agreement with resident note, which includes further HPI details. Patient was seen and evaluated with resident, came up with plan and treatment together. I performed the hx and physical exam of the patient and discussed their mgt with the RESIDENT. I reviewed the RESIDENT's NOTE and agree with the assessment and plan of care. abd exam: well nourished male, mild diffuse mid abd tenderness, no nelson's sign , no mcburney's point tenderness, no masses/rebound/guarding/rigidity pt felt some improvement after pain medications pt tolerated po pt is made aware of his medical results pt is encouraged on taking higher dose steroids as per recommended by his Rheumatologists at [facility] pt will f/u with his PCP as well as Rheum at [facility] pt is encouraged fluids pt will be discharged home (Paersh Taylor) - Lab Interpretations Lab Results: 06/12/17 08:15 06/12/17 08:15 Lab Results 06/12/17 08:15: pO2 47, VBG pH 7.39, VBG pCO2 50.0, VBG HCO3 30.3 H, VBG Total CO2 31.8 H, VBG O2 Sat (Calc) 86.0 H, VBG Base Excess 4.2 H, VBG Potassium 3.6, Sodium 139.0, Chloride 104.0, Glucose 95, Lactate 1.1, FiO2 21.0, Venous Blood Potassium 3.6 06/12/17 08:15: Sodium 142, Chloride 102, Potassium 3.5 L, Carbon Dioxide 26, Anion Gap 17, BUN 18, Creatinine 1.0, Est GFR ( Amer) > 60, Est GFR (Non- Af Amer) > 60, Random Glucose 92, Calcium 9.4, Total Bilirubin 0.6, AST 22, ALT 25, Alkaline Phosphatase 119, C-Reactive Protein 76.30 H, Total Protein 8.1, Albumin 3.8, Globulin 4.3, Albumin/Globulin Ratio 0.9 L, Lipase 60 06/12/17 08:15: PT 15.7 H, INR 1.36 H, APTT 38.2 H 06/12/17 08:15: WBC 12.1 H, RBC 4.42, Hgb 10.9 L, Hct 35.8 L, MCV 81.0, MCH 24.7 L, MCHC 30.4 L, RDW 16.3 H, Plt Count 401, MPV 9.5, Gran % 60.8, Lymph % ( Auto) 26.9, [place] % (Auto) 10.9 H, Eos % (Auto) 1.2 L, Baso % (Auto) 0.2, Gran # 7.34 H, Lymph # (Auto) 3.2, [place] # (Auto) 1.3 H, Eos # (Auto) 0.1, Baso # (Auto ) 0.02, ESR 93 H - EKG Interpretation EKG Interpretation (Text): 06/12/17 20:00 NSR at 95 bpm, normal axis, no ectopy, qs in lead III, inverted T in leads III, min voltage criteria LVH, no st changes, BORDERLINE EKG; unchanged compare with old ekg 02/2017 (Praesh Taylor) - Medication Orders Current Medication Orders: Discontinued Medications Famotidine (Pepcid) 20 mg IVP STAT STA Stop: 06/12/17 08:16 Last Admin: 06/12/17 08:24 Dose: 20 mg IVP Administration Document 06/12/17 08:24 EWO (Rec: 06/12/17 08:24 EWO [facility] [id number]) Charges for Administration # of IVP Administrations 1 Sodium Chloride (Sodium Chloride 0.9%) 1,000 mls @ 999 mls/hr IV .Q1H1M STA Stop: 06/12/17 08:49 Last Admin: 06/12/17 08:16 Dose: 999 mls/hr eMAR Start Stop Document 06/12/17 08:16 EWO (Rec: 06/12/17 08:16 [id number] Intravenous Solution Start Date 06/12/17 Start Time 08:16 End Date 06/12/17 End time 09:16 Total Infusion Time 60 Morphine Sulfate (Morphine) 8 mg IVP STAT STA Stop: 06/12/17 07:51 Last Admin: 06/12/17 08:16 Dose: 8 mg MAR Pain Assessment Document 06/12/17 08:16 EWO (Rec: 06/12/17 08:17 [id number] Pain Reassessment Is this a pain reassessment? No Sleep Is patient sleeping during reassessment? No Presence of Pain Presence of Pain Yes Pain Scale Used Pain Scale Used Numeric Location Pain Location Body Site Abdomen Description Description Constant Intensity of Pain at present 7 IVP Administration Document 06/12/17 08:16 EWO (Rec: 06/12/17 08:17 [id number]) Charges for Administration # of IVP Administrations 1 Morphine Sulfate (Morphine) 2 mg IVP STAT STA Stop: 06/12/17 11:43 Last Admin: 06/12/17 11:49 Dose: 2 mg MAR Pain Assessment Document 06/12/17 11:49 EWO (Rec: 06/12/17 11:50 [id number]) Pain Reassessment Is this a pain reassessment? Yes Sleep Is patient sleeping during reassessment? No Presence of Pain Presence of Pain Yes Pain Scale Used Pain Scale Used Numeric Location Pain Location Body Site Abdomen Description Description Intermittent Intensity of Pain at present 5 IVP Administration Document 06/12/17 11:49 EWO (Rec: 06/12/17 11:50 [id number]) Charges for Administration # of IVP Administrations 2 Ondansetron HCl (Zofran Inj) 4 mg IVP STAT STA Stop: 06/12/17 07:56 Last Admin: 06/12/17 08:16 Dose: 4 mg IVP Administration Document 06/12/17 08:16 EWO (Rec: 06/12/17 08:16 E[facility] [id number]) Charges for Administration # of IVP Administrations 1 Pantoprazole Sodium (Protonix Inj) 40 mg IVP STAT STA Stop: 06/12/17 12:06 Last Admin: 06/12/17 12:31 Dose: 40 mg IVP Administration Document 06/12/17 12:31 EWO (Rec: 06/12/17 12:31 [facility] [id number]) Charges for Administration # of IVP Administrations 1 Prednisone (Prednisone Tab) 50 mg PO STAT STA Stop: 06/12/17 12:06 Last Admin: 06/12/17 12:30 Dose: 50 mg <Teri Torres - Last Filed: 06/12/17 12:25> - PA / INSTRUCTOR CREELER / Resident Statement MD/ has reviewed & agrees with the documentation as recorded. MD/DO has examined the patient and agrees with the treatment plan. - Scribe Statement The provider has reviewed the documentation as recorded by the Scribe <Paresh Taylor - Last Filed: 06/12/17 20:01> - Scribe Statement Isabelle Castellon Provider Scribe Attestation: All medical record entries made by the Scribe were at my direction and personally dictated by me. I have reviewed the chart and agree that the record accurately reflects my personal performance of the history, physical exam, medical decision making, and the department course for this patient. I have also personally directed, reviewed, and agree with the discharge instructions and disposition. (Paresh Taylor) Disposition/Present on Arrival - Present on Arrival Any Indicators Present on Arrival: No History of DVT/PE: No History of Uncontrolled Diabetes: No Urinary Catheter: No History of Decub. Ulcer: No History Surgical Site Infection Following: None - Disposition Have Diagnosis and Disposition been Completed?: Yes Disposition Time: 12:14 Patient Plan: Discharge <Teri Torres - Last Filed: 06/12/17 12:25> <Paresh Taylor - Last Filed: 06/12/17 20:01> - Disposition Diagnosis: Abdominal pain, IgG4 related disease Disposition: HOME/ ROUTINE Condition: FAIR Discharge Instructions (ExitCare): Chronic Pain (DC) Print Language: MOHAWK Additional Instructions: -- Take the 40mg prednisone we've prescribed, once daily, in addition to your 10mg daily; total 50mg daily for the next 4 more days -- Take omeprazole twice daily while taking the increased dose of prednisone -- Continue your home percocet dose as previously prescribed -- Follow up with your summer sessions director on Thursday -- Return to the ER for any new or worsening concerns Prescriptions: predniSONE [predniSONE Tab] 40 mg PO DAILY 4 Days tab Referrals: Alla Nicole, [Primary Care Provider] - Follow up with primary Forms: [facility] ([place]an), WORK NOTE
[2017-06-12] MEDS ORDERED: Sodium Chloride 0.9% 1,000 ML IV STA (07:49)
[2017-06-12] MEDS ORDERED: Morphine 4 mg/ml ISec IVP STA ×2 (07:50→11:42)
[2017-06-12 08:21] LABS: BASO # 0.02 K/mm3 (0.0-2.0); BASO % 0.2 % (0.0-3.0); EOS # 0.1 (0.0-0.7); EOS % 1.2 % (1.5-5.0); GRAN # 7.34 (1.4-6.5); GRAN % 60.8 % (50.0-68.0); HEMOGLOBIN 10.9 g/dL (14.0-18.0); LYMPH # 3.2 (1.2-3.4); LYMPH % 26.9 % (22.0-35.0); MEAN CORPUSCULAR HEMOGLOBIN 24.7 pg (25.0-35.0); MEAN CORPUSCULAR HGB CONC 30.4 g/dl (31.0-37.0); MEAN PLATELET VOLUME 9.5 fl (7.0-11.0); MONO # 1.3 (0.1-0.6); MONO % 10.9 % (1.0-6.0); RBC 4.42 10^6/uL (3.5-6.1); RED CELL DISTRIBUTION WIDTH 16.3 % (11.5-14.5); VENOUS BLOOD GAS BASE EXCESS 4.2 mmol/L (0.0-2.0); VENOUS BLOOD GAS PO2 47 mm/Hg (30-55); VENOUS BLOOD PH 7.39 (7.32-7.43); WHITE BLOOD COUNT 12.1 10^3/ul (4.5-11.0)
[2017-06-12 08:29] VITALS: RESP 18; O2SAT 98
[2017-06-12 08:34] LABS: ALB/GLOB RATIO 0.9 (1.1-1.8); ALBUMIN 3.8 g/dL (3.0-4.8); ALT/SGPT 25 U/L (7-56); AST/SGOT 22 U/L (17-59); BLOOD UREA NITROGEN 18 mg/dL (7-21); CALCIUM 9.4 mg/dL (8.4-10.5); GFR AFRICAN-AMERICAN > 60; GFR NON-AFRICAN AMERICAN > 60; LIPASE 60 U/L (23-300)
[2017-06-12 08:58] LABS: INR 1.36 (0.93-1.08); PARTIAL THROMBOPLASTIN TIME 38.2 Seconds (25.1-36.5); PROTHROMBIN TIME 15.7 SECONDS (9.4-12.5)
[2017-06-12 12:38] VITALS: BP 127/79; PULSE 79
--- NOTE | 2017-06-12 13:38 | CARD ---
APPROVED REPORT EKG Measurement Heart [id number] <Conclusion> Normal sinus rhythm Minimal voltage criteria for LVH, may be normal variant Borderline ECG
== END 2017-06-12 12:39 | disposition home or self-care (01) ==
LOC: ED 06:12
DX: R10.9 Unspecified abdominal pain (principal); D89.89 Other specified disorders involving the immune mechanism, not elsewhere classified
CPT/HCPCS: 80053; 82803; 83690; 85025; 85610; 85651; 85730; 86140; 93005; 96361; 96374; 96375; 96376; 99284; C9113; J2270; J2405; J7040

== ENCOUNTER 2017-06-26 08:34 | Emergency (ER) | payer OTHER ==
[2017-06-26 08:34] VITALS: BMI 38.0
[2017-06-26] MEDS ORDERED: Sodium Chloride 0.9% 500 ML IV STA (09:07)
[2017-06-26] MEDS ORDERED: HYDROmorphone 2 mg/ml ISec IVP STA (09:07)
--- NOTE | 2017-06-26 09:29 | ED PDOC ---
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 Patient states his symptom feels similar to prior episodes. He notes taking daily medications, with no significant improvement. 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 Patient notes decrease appetite but denies any fever, chills, nausea , vomiting, diarrhea, bloody stools, chest pain, shortness of breath or any other complaints. Fiber Glass Worker: Dr. Leigh Time/Duration: Other (3 days) Symptom Course: Worsening Context: Home Past Medical History - Provider Review Nursing Documentation Reviewed: Yes - Past History Past History: No Previous - Infectious Disease Hx of Infectious Diseases: None - Tetanus Immunization Tetanus Immunization: Unknown - Past Medical History Past Medical History: No Previous - Cardiac Hx Hypertension: No Hx Pacemaker: No - Pulmonary Hx Asthma: Yes - Neurological Hx Neurological Disorder: No - HEENT Hx HEENT Disorder: No - Renal Hx Renal Disorder: No - Endocrine/Metabolic Hx Endocrine Disorders: Yes Other/Comment: Inflammation of the pancreas and L side of the Liver, Auto immune disease - Hematological/Oncological Hx Anemia: Yes - Integumentary Hx Dermatological Disorder: No - Musculoskeletal/Rheumatological Hx Musculoskeletal Disorders: No Hx Falls: No - Gastrointestinal Hx Gall Bladder Disease: Yes (LAP ALTAGRACIA ON 06/06/15) Hx Pancreatitis: Yes - Genitourinary/Gynecological Hx Genitourinary Disorders: No - Psychiatric Hx Depression: No Hx Substance Use: No - Past Surgical History Past Surgical History: No Previous - Surgical History Hx Cholecystectomy: Yes - Anesthesia Hx Anesthesia: Yes Hx Anesthesia Reactions: No Hx Malignant Hyperthermia: No - Suicidal Assessment Feels Threatened In Home Enviroment: No Family/Social History - Physician Review Nursing Documentation Reviewed: Yes Family/Social History: No Known Family HX Smoking Status: Never Smoked Hx Alcohol Use: No Hx Substance Use: No Hx Substance Use Treatment: No Allergies/Home Meds Allergies/Adverse Reactions: Allergies No Known Allergies Allergy (Verified 05/19/17 18:10) Home Medications: Home Meds Medication Instructions Recorded Confirmed Ursodiol 300 mg PO BID 08/21/15 06/28/17 Prednisone [Gregorio] 5 mg PO BID 12/18/15 06/28/17 Calcium Carbonate/Vitamin D3 1 each PO BID 12/02/16 06/28/17 [Calcium 600 + Vit D Tablet] Dabigatran [Pradaxa] 150 mg PO BID 12/02/16 06/28/17 Review of Systems - Physician Review All systems were reviewed & negative as marked: Yes - Review of Systems Constitutional: absent: Fevers, Night Sweats Respiratory: absent: SOB Cardiovascular: absent: Chest Pain Gastrointestinal: Abdominal Pain (diffuse). absent: Diarrhea, Nausea, Vomiting , Hematochezia Physical Exam - Physical Exam Narrative Physical Exam (Text): Head: Atraumatic. Normocephalic. Eyes: PERRL. EOMI. Conjunctivae are not pale. ENT: Mucous membranes are moist and intact. Oropharynx is clear and symmetric. Neck: Supple. Full ROM. No JVD. No lymphadenopathy. Cardiovascular: Tachycardic. Regular rhythm. No murmurs, rubs, or gallops. Distal pulses are 2+ and symmetric. Pulmonary/Chest: No evidence of respiratory distress. Clear to auscultation bilaterally. No wheezing, rales or rhonchi. Abdominal: Soft and non-distended. Diffuse tenderness with moderate pain with palpation to epigastric region. No rebound, guarding, or rigidity. No organomegaly. Good bowel sounds. Back: No CVA tenderness. Extremities: No edema. No cyanosis. No clubbing. Full range of motion in all extremities. No calf tenderness. Skin: Skin is warm and dry. No petechiae. No purpura. Neurological: Alert, awake, and oriented to person, place, time, and situation. Normal speech. Psychiatric: Good eye contact. Normal interaction, affect, and behavior. Vital Signs Reviewed: Yes Vital Signs Temp Pulse Resp BP Pulse Ox 06/26/17 15:40 19 99 06/26/17 15:05 97.3 F L 88 16 119/73 98 06/26/17 11:15 98.7 F 06/26/17 10:48 124/82 06/26/17 09:36 99.9 F H 112 H 19 126/77 99 Temperature: Afebrile Pulse: Tachycardic Appearance: Positive for: Well-Appearing, Non-Toxic, Comfortable Pain Distress: None Mental Status: Positive for: Alert and Oriented X 3 Medical Decision Making ED Course and Treatment: 06/26/17 09:11 Impression: A 41 year old male with worsening chronic abdominal pain Differential Diagnosis included but are not limited to: Colitis vs. Flare rheumatoid disease Plan: -- EKG -- Labs -- IV fluids, Pepcid, Zofran and Dilaudid -- Reassess and disposition Progress Notes: Patient with hx of Igg rheumatologic disorder, presents with increased abdominal pain and is tachycardic. Will attempt to contact patients crewman armoured personnel carrier [id number] Dr. Leigh. Patient has had steroid dose tapered recently. Persistent, severe pain described as similar to past episodes. Recent CT abdomen reviewed. No peritoneal signs currently noted. IV pain medication ordered. Risks/side effects of chronic opiates reviewed with patient. Patient admitted for intractable pain, failure of outpatient treatment. - Lab Interpretations Microbiology Results: Microbiology Results 06/26/17 10:45 Blood Blood Culture - Preliminary NO GROWTH AFTER 4 DAYS 06/26/17 10:45 Blood Blood Culture - Preliminary NO GROWTH AFTER 4 DAYS Lab Results: 06/26/17 09:58 06/26/17 09:58 Lab Results 06/26/17 10:45: pO2 141 H, VBG pH 7.38, VBG pCO2 47.0, VBG HCO3 27.8, VBG Total CO2 29.2 H, VBG O2 Sat (Calc) 100.1 H, VBG Base Excess 2.0, VBG Potassium 3.8, Glucose 118 H, Lactate 0.8, FiO2 21.0, Sodium 139.0, Chloride 108.0 H, Venous Blood Potassium 3.8 06/26/17 09:58: PT 16.7 H, INR 1.44 H, APTT 38.3 H 06/26/17 09:58: WBC 13.0 H, RBC 4.70, Hgb 12.1 L, Hct 38.5 L, MCV 81.9, MCH 25.7 , MCHC 31.4, RDW 16.7 H, Plt Count 336, MPV 9.3, Gran % 79.0 H, Lymph % (Auto) 9.5 L, [place] % (Auto) 10.5 H, Eos % (Auto) 0.8 L, Baso % (Auto) 0.2, Gran # 10.28 H, Lymph # (Auto) 1.2, [place] # (Auto) 1.4 H, Eos # (Auto) 0.1, Baso # (Auto ) 0.02 06/26/17 09:58: Sodium 142, Potassium 4.0, Chloride 102, Carbon Dioxide 26, Anion Gap 18, BUN 19, Creatinine 0.9, Est GFR ( Amer) > 60, Est GFR (Non- Af Amer) > 60, Random Glucose 113 H, Calcium 9.3, Magnesium 1.9, Total Bilirubin 1.0, AST 28, ALT 14, Alkaline Phosphatase 121, Total Protein 8.4 H, Albumin 4.0, Globulin 4.4, Albumin/Globulin Ratio 0.9 L, Amylase 68, Lipase 56 I have reviewed the lab results: Yes - Medication Orders Current Medication Orders: Discontinued Medications Calcium Carbonate (Caltrate) 600 mg PO DAILY [facility] Dabigatran (Pradaxa) 150 mg PO BID [facility] PRN Reason: Protocol Hydromorphone HCl (Dilaudid) 2 mg IVP STAT STA Stop: 06/26/17 09:08 Last Admin: 06/26/17 10:00 Dose: 2 mg MAR Pain Assessment Document 06/26/17 10:00 CAST (Rec: 06/26/17 10:00 [facility] [id number]) Pain Reassessment Is this a pain reassessment? No Sleep Is patient sleeping during reassessment? No Presence of Pain Presence of Pain Yes Pain Scale Used Pain Scale Used Numeric Location Pain Location Body Site Abdomen Description Description Constant Intensity of Pain at present 5 Pain Behavior Facial Grimacing Aggravating Factors Changing Position Alleviating Factors/Management Medication Techniques Alleviating Factors Medication IVP Administration Document 06/26/17 10:00 [email or web address] (Rec: 06/26/17 10:00 [facility] [id number]) Charges for Administration # of IVP Administrations 1 Sodium Chloride (Sodium Chloride 0.9%) 500 mls @ 1,000 mls/hr IV .Q30M STA Stop: 06/26/17 09:36 Last Admin: 06/26/17 10:00 Dose: 1,000 mls/hr eMAR Start Stop Document 06/26/17 10:00 [email or web address] (Rec: 06/26/17 10:00 [facility] [id number]) Intravenous Solution Start Date 06/26/17 Start Time 10:00 Famotidine 20 mg/ (Miscellaneous) 50 mls @ 100 mls/hr IVPB STAT STA Stop: 06/26/17 10:45 Last Admin: 06/26/17 10:48 Dose: 100 mls/hr eMAR Start Stop Document 06/26/17 10:48 [email or web address] (Rec: 06/26/17 10:48 [email or web address] [id number]) Intravenous Solution Start Date 06/26/17 Start Time 10:48 End Date 06/26/17 Sodium Chloride (Sodium Chloride 0.9%) 1,000 mls @ 140 mls/hr IV .Q7H9M [facility] Ondansetron HCl (Zofran Inj) 4 mg IVP ONCE ONE Stop: 06/26/17 09:08 Last Admin: 06/26/17 10:00 Dose: 4 mg IVP Administration Document 06/26/17 10:00 [email or web address] (Rec: 06/26/17 10:00 [email or web address] [id number]) Charges for Administration # of IVP Administrations 1 Ondansetron HCl (Zofran Inj) 4 mg IVP Q6 PRN PRN Reason: Nausea/Vomiting Pantoprazole Sodium (Protonix Inj) 40 mg IVP DAILY [facility] Ursodiol (Actigall) 300 mg PO BID [facility] Vitamin D (Vitamin D 400 Intl Units Tab) 400 intlu PO DAILY [facility] - Scribe Statement The provider has reviewed the documentation as recorded by the Gbaeibsheng Barone Provider Scribe Attestation: All medical record entries made by the Scribe were at my direction and personally dictated by me. I have reviewed the chart and agree that the record accurately reflects my personal performance of the history, physical exam, medical decision making, and the department course for this patient. I have also personally directed, reviewed, and agree with the discharge instructions and disposition. Disposition/Present on Arrival - Present on Arrival Any Indicators Present on Arrival: No History of DVT/PE: No History of Uncontrolled Diabetes: No Urinary Catheter: No History of Decub. Ulcer: No History Surgical Site Infection Following: None - Disposition Have Diagnosis and Disposition been Completed?: Yes Diagnosis: Abdominal pain Disposition: HOSPITALIZED Disposition Time: 12:00 Patient Plan: Admission Patient Problems: Current Active Problems Problem Status Onset Abdominal pain Acute Fever Acute Condition: FAIR Additional Instructions: Avoid smoking, chocolate, spicy food, eating and lying down, alcohol, citrus Take Protonix, Maalox, and Carafate as prescribed Stay adequately hydrated Resume home medications as prescribed Follow up with GI and PMD within 1-3 days Please return to ED if symptoms persist or condition worsens
[2017-06-26 10:08] LABS: BASO # 0.02 K/mm3 (0.0-2.0); BASO % 0.2 % (0.0-3.0); EOS # 0.1 (0.0-0.7); EOS % 0.8 % (1.5-5.0); GRAN # 10.28 (1.4-6.5); HEMOGLOBIN 12.1 g/dL (14.0-18.0); LYMPH # 1.2 (1.2-3.4); LYMPH % 9.5 % (22.0-35.0); MEAN CELL VOLUME 81.9 fl (80.0-105.0); MEAN CORPUSCULAR HEMOGLOBIN 25.7 pg (25.0-35.0); MEAN CORPUSCULAR HGB CONC 31.4 g/dl (31.0-37.0); MEAN PLATELET VOLUME 9.3 fl (7.0-11.0); MONO # 1.4 (0.1-0.6); MONO % 10.5 % (1.0-6.0); RBC 4.7 10^6/uL (3.5-6.1); RED CELL DISTRIBUTION WIDTH 16.7 % (11.5-14.5)
[2017-06-26 10:15] LABS: ALB/GLOB RATIO 0.9 (1.1-1.8); ALT/SGPT 14 U/L (7-56); AMYLASE 68 U/L (35-125); AST/SGOT 28 U/L (17-59); BLOOD UREA NITROGEN 19 mg/dL (7-21); CALCIUM 9.3 mg/dL (8.4-10.5); GFR AFRICAN-AMERICAN > 60; GFR NON-AFRICAN AMERICAN > 60; LIPASE 56 U/L (23-300)
[2017-06-26] MEDS ORDERED: Famotidine 20mg/50ml 20 MG in Premixed IV 50 EA IVPB STA (10:16)
[2017-06-26 10:17] LABS: INR 1.44 (0.93-1.08); PARTIAL THROMBOPLASTIN TIME 38.3 Seconds (25.1-36.5); PROTHROMBIN TIME 16.7 SECONDS (9.4-12.5)
[2017-06-26 10:48] LABS: VENOUS BLOOD GAS PO2 141 mm/Hg (30-55); VENOUS BLOOD PH 7.38 (7.32-7.43)
--- NOTE | 2017-06-26 14:33 | CP.PCM.HP ---
Past Patient History - Infectious Disease Hx of Infectious Diseases: None - Tetanus Immunizations Tetanus Immunization: Unknown - Past Social History Smoking Status: Never Smoked - CARDIAC Hx Hypertension: No Hx Pacemaker: No - PULMONARY Hx Asthma: Yes - NEUROLOGICAL Hx Neurological Disorder: No - HEENT Hx HEENT Problems: No - RENAL Hx Chronic Kidney Disease: No - ENDOCRINE/METABOLIC Hx Endocrine Disorders: Yes Other/Comment: Inflammation of the pancreas and L side of the Liver, Auto immune disease - HEMATOLOGICAL/ONCOLOGICAL Hx Anemia: Yes - INTEGUMENTARY Hx Dermatological Problems: No - MUSCULOSKELETAL/RHEUMATOLOGICAL Hx Musculoskeletal Disorders: No Hx Falls: No - GASTROINTESTINAL Hx Gall Bladder Disease: Yes (LAP ALTAGRACIA ON 06/06/15) Hx Pancreatitis: Yes - GENITOURINARY/GYNECOLOGICAL Hx Genitourinary Disorders: No - PSYCHIATRIC Hx Depression: No Hx Substance Use: No - SURGICAL HISTORY Hx Cholecystectomy: Yes - ANESTHESIA Hx Anesthesia: Yes Hx Anesthesia Reactions: No Hx Malignant Hyperthermia: No Meds Allergies/Adverse Reactions: Allergies Allergy/AdvReac Type Severity Reaction Status Date / Time No Known Allergies Allergy Verified 05/19/17 18:10 Results - Vital Signs Recent Vital Signs: Last Vital Signs Temp 98.7 F 06/26/17 11:15 Pulse 112 H 06/26/17 09:36 Resp 19 06/26/17 09:36 BP 124/82 06/26/17 10:48 Pulse Ox 99 06/26/17 09:36 - Labs Result Diagrams: 06/26/17 09:58 06/26/17 09:58
[2017-06-26] MEDS ORDERED: HYDROmorphone 0.5 mg/0.5 ml ISec IVP PRN (14:35)
[2017-06-26] MEDS ORDERED: Sodium Chloride 0.9% 1,000 ML IV SCH (14:45)
[2017-06-26 15:06] VITALS: BP 119/73; PULSE 88; TEMP 97.3
--- NOTE | 2017-06-26 15:20 | CP.PCM.CON ---
<Cruzito Rice - Last Filed: 06/26/17 15:47> History of Present Illness - History of Present Illness History of Present Illness: Medicine Consult Note for Dr. 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 Patient was seen and evaluated in the ED. Patient states pain began while at home. He reports that pain came on gradually and has progressively gotten worse. He states that he has similar pain that is recurrent due to history of autoimmune IgG4. 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 Patient denies associated nausea/ vomiting. He rates pain as constant and sharp in epigastrium. He rates pain as moderate intensity. Eating/drinking and sleep alleviates pain while palpation exacerbates it. Patient had BM earlier today and is passing gas. Denies eating anything new or unusual. Denies recent illness or sick contacts. Denies fever/ chills, cp, headache, SOB, nausea/vomiting, diarrhea, incontinence, constipation , urinary symptoms. 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 Meds: Ursodiol, prednisone, oxycodone, calcium/vit d, pradaxa, omeprazole Allergy: NKDA PSH: cholecystectomy FH: non-contributory Social: denies tobacco/EtOH/illicit drug use Review of Systems - Review of Systems All systems: reviewed and no additional remarkable complaints except (as per HPI ) Past Patient History - Infectious Disease Hx of Infectious Diseases: None - Tetanus Immunizations Tetanus Immunization: Unknown - Past Social History Smoking Status: Never Smoked - CARDIAC Hx Hypertension: No Hx Pacemaker: No - PULMONARY Hx Asthma: Yes - NEUROLOGICAL Hx Neurological Disorder: No - HEENT Hx HEENT Problems: No - RENAL Hx Chronic Kidney Disease: No - ENDOCRINE/METABOLIC Hx Endocrine Disorders: Yes Other/Comment: Inflammation of the pancreas and L side of the Liver, Auto immune disease - HEMATOLOGICAL/ONCOLOGICAL Hx Anemia: Yes - INTEGUMENTARY Hx Dermatological Problems: No - MUSCULOSKELETAL/RHEUMATOLOGICAL Hx Musculoskeletal Disorders: No Hx Falls: No - GASTROINTESTINAL Hx Gall Bladder Disease: Yes (LAP ALTAGRACIA ON 06/06/15) Hx Pancreatitis: Yes - GENITOURINARY/GYNECOLOGICAL Hx Genitourinary Disorders: No - PSYCHIATRIC Hx Depression: No Hx Substance Use: No - SURGICAL HISTORY Hx Cholecystectomy: Yes - ANESTHESIA Hx Anesthesia: Yes Hx Anesthesia Reactions: No Hx Malignant Hyperthermia: No Meds Allergies/Adverse Reactions: Allergies Allergy/AdvReac Type Severity Reaction Status Date / Time No Known Allergies Allergy Verified 05/19/17 18:10 - Medications Medications: Current Medications Calcium Carbonate (Caltrate) 600 mg PO DAILY [facility] Dabigatran (Pradaxa) 150 mg PO BID PAW[facility] PRN Reason: Protocol Sodium Chloride (Sodium Chloride 0.9%) 1,000 mls @ 140 mls/hr IV .Q7H9M [facility] Ondansetron HCl (Zofran Inj) 4 mg IVP Q6 PRN PRN Reason: Nausea/Vomiting Pantoprazole Sodium (Protonix Inj) 40 mg IVP DAILY [facility] Ursodiol (Actigall) 300 mg PO BID [facility] Vitamin D (Vitamin D 400 Intl Units Tab) 400 intlu PO DAILY [facility] Physical Exam - Constitutional Appears: No Acute Distress - Head Exam Head Exam: ATRAUMATIC, NORMOCEPHALIC - Eye Exam Eye Exam: EOMI, Normal appearance Pupil Exam: PERRL - ENT Exam ENT Exam: Mucous Membranes Moist - Respiratory Exam Respiratory Exam: Clear to Auscultation Bilateral, NORMAL BREATHING PATTERN - Cardiovascular Exam Cardiovascular Exam: REGULAR RHYTHM, +S1, +S2 - GI/Abdominal Exam GI & Abdominal Exam: Hernia (small umbilical hernia, nontender), Normal Bowel Sounds, Soft, Tenderness (very mild epigastrium). absent: Distended, Firm, Guarding, Mass, Rebound, Rigid - Extremities Exam Extremities exam: Positive for: normal capillary refill, pedal pulses present. Negative for: calf tenderness - Back Exam Back exam: absent: CVA tenderness (L), CVA tenderness (R) - Neurological Exam Neurological exam: Alert, CN II-XII Intact, Normal Gait, Oriented x3 - Psychiatric Exam Psychiatric exam: Normal Affect, Normal Mood - Skin Skin Exam: Dry, Intact, Normal Color, Warm Results - Vital Signs Recent Vital Signs: Last Vital Signs Temp 97.3 F L 06/26/17 15:05 Pulse 88 06/26/17 15:05 Resp 16 06/26/17 15:05 BP 119/73 06/26/17 15:05 Pulse Ox 98 06/26/17 15:05 - Labs Result Diagrams: 06/26/17 09:58 06/26/17 09:58 Assessment & Plan - Assessment and Plan (Free Text) Assessment: 41 M with PMH of autoimmune IgG4, GERD, autoimmune cholangitis, s/p cholecystectomy, 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 Plan: 1. Abdominal pain likely secondary to gastritis Patient vitals stable, without nausea/vomiting, tolerating oral intake which improves pain, Lipase normal, Patient to be discharged to home with prescriptions Avoid smoking, chocolate, spicy food, eating and lying down, alcohol, citrus Take Protonix, Maalox, and Carafate as prescribed Stay adequately hydrated Resume home medications as prescribed Follow up with GI and PMD within 1-3 days Please return to ED if symptoms persist or condition worsens Case discussed with Dr. Kera Rice PGY1 - Date & Time Date: 06/26/17 Time: 15:00 <Aditi Cote - Last Filed: 06/26/17 17:35> Meds - Medications Medications: Current Medications Calcium Carbonate (Caltrate) 600 mg PO DAILY [facility] Dabigatran (Pradaxa) 150 mg PO BID [facility]WEL PRN Reason: Protocol Sodium Chloride (Sodium Chloride 0.9%) 1,000 mls @ 140 mls/hr IV .Q7H9M [facility] Ondansetron HCl (Zofran Inj) 4 mg IVP Q6 PRN PRN Reason: Nausea/Vomiting Pantoprazole Sodium (Protonix Inj) 40 mg IVP DAILY [facility] Ursodiol (Actigall) 300 mg PO BID [facility] Vitamin D (Vitamin D 400 Intl Units Tab) 400 intlu PO DAILY [facility] Results - Vital Signs Recent Vital Signs: Last Vital Signs Temp 97.3 F L 06/26/17 15:05 Pulse 88 06/26/17 15:05 Resp 19 06/26/17 15:40 BP 119/73 06/26/17 15:05 Pulse Ox 99 06/26/17 15:40 - Labs Result Diagrams: 06/26/17 09:58 06/26/17 09:58 Attending/Attestation - Attestation I have personally seen and examined this patient.: Yes I have fully participated in the care of the patient.: Yes I have reviewed all pertinent clinical information: Yes Notes (Text): 06/26/17 17:28 Medical record note made by the resident after discussion with my direction and input after the patient was personally seen and examined by me. I have reviewed the chart and agree that the record accurately reflects by personal performance of the history, physical exam, data review, and medical decision-making, in the course for the patient. I have also personally directed the plan of care. 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 Management plan was discussed in detail with patient. Education was provided.
[2017-06-26 15:41] VITALS: RESP 19; O2SAT 99
[2017-06-26] MEDS ORDERED: CALCIUM CARBONATE PO SCH (18:00)
[2017-06-26] MEDS ORDERED: [UNRECOGNIZED DRUG - OTHER] PO SCH (18:00)
[2017-06-26] MEDS ORDERED: VITAMIN D3 PO SCH (18:00)
--- NOTE | 2017-06-26 18:51 | CARD ---
APPROVED REPORT EKG Measurement Heart [id number] <Conclusion> Poor data quality, interpretation may be adversely affected Sinus tachycardia Minimal voltage criteria for LVH, may be normal variant Borderline ECG
[2017-06-27] MEDS ORDERED: Cholecalciferol 400 Intl Units Tab PO SCH (10:00)
== END 2017-06-26 15:43 | disposition home or self-care (01) ==
LOC: ED 08:34 → UNDOADMOB 13:36 → ERH 13:36 → 5RSO 06-27 01:20
DX: R10.9 Unspecified abdominal pain (principal); K21.9 Gastro-esophageal reflux disease without esophagitis; D64.9 Anemia, unspecified; Z90.49 Acquired absence of other specified parts of digestive tract; K83.0 Cholangitis
CPT/HCPCS: 80053; 82150; 82803; 83690; 83735; 85025; 85610; 85730; 87040; 93005; 96374; 96375; 99284; J1170; J2405; J7040

== ENCOUNTER 2017-06-28 03:27 | Inpatient (IN) | payer OTHER ==
[2017-06-28 03:28] VITALS: BMI 38.0
[2017-06-28] MEDS ORDERED: Sodium Chloride 0.9% 1,000 ML IV ONE (03:56)
[2017-06-28] MEDS ORDERED: HYDROmorphone 2 mg/ml ISec IVP STA ×2 (04:05→06:16)
[2017-06-28] MEDS ORDERED: Famotidine 20mg/50ml 20 MG/50 ML BAG IVPB ONE (04:15)
--- NOTE | 2017-06-28 04:16 | ED PDOC ---
Arrival/HPI - General Chief Complaint: Abdominal Pain Time Seen by Provider: 06/28/17 03:32 Historian: Patient - History of Present Illness Narrative History of Present Illness (Text): 06/28/17 04:13 41 year old male, with past medical history of liver cyst, fatty liver, IgG stage IV cholangitis, peripancreatic lymph nodes and cholecystectomy, presents to the Emergency department complaining of persistent abdominal discomfort for past 3-4 days. Patient was seen in the Emergency department 2 days ago and was evaluated and discharged home. Patient informs worsening discomfort with low grade fever and palpitations. Patient denies any nausea, vomiting, diarrhea, abdominal pain, chest pain, shortness of breath, back or neck pain or any other complaints. Time/Duration: < week Symptom Onset: Gradual Symptom Course: Unchanged Quality: Aching Activities at Onset: Light Context: Home Past Medical History - Provider Review Nursing Documentation Reviewed: Yes - Past History Past History: No Previous - Infectious Disease Hx of Infectious Diseases: None - Tetanus Immunization Tetanus Immunization: Unknown - Past Medical History Past Medical History: No Previous - Cardiac Hx Hypertension: No Hx Pacemaker: No - Pulmonary Hx Asthma: Yes - Neurological Hx Neurological Disorder: No - HEENT Hx HEENT Disorder: No - Renal Hx Renal Disorder: No - Endocrine/Metabolic Hx Endocrine Disorders: Yes Other/Comment: Inflammation of the pancreas and L side of the Liver, Auto immune disease - Hematological/Oncological Hx Anemia: Yes - Integumentary Hx Dermatological Disorder: No - Musculoskeletal/Rheumatological Hx Musculoskeletal Disorders: No Hx Falls: No - Gastrointestinal Hx Gall Bladder Disease: Yes (LAP ALTAGRACIA ON 06/06/15) Hx Pancreatitis: Yes - Genitourinary/Gynecological Hx Genitourinary Disorders: No - Psychiatric Hx Depression: No Hx Substance Use: No - Past Surgical History Past Surgical History: No Previous - Surgical History Hx Cholecystectomy: Yes - Anesthesia Hx Anesthesia: Yes Hx Anesthesia Reactions: No Hx Malignant Hyperthermia: No - Suicidal Assessment Feels Threatened In Home Enviroment: No Family/Social History - Physician Review Nursing Documentation Reviewed: Yes Family/Social History: No Known Family HX Smoking Status: Never Smoked Hx Alcohol Use: No Hx Substance Use: No Hx Substance Use Treatment: No Allergies/Home Meds Allergies/Adverse Reactions: Allergies No Known Allergies Allergy (Verified 05/19/17 18:10) Home Medications: Home Meds Medication Instructions Recorded Confirmed Ursodiol 300 mg PO BID 08/21/15 06/28/17 Prednisone [Gregorio] 5 mg PO BID 12/18/15 06/28/17 Calcium Carbonate/Vitamin D3 1 each PO BID 12/02/16 06/28/17 [Calcium 600 + Vit D Tablet] Dabigatran [Pradaxa] 150 mg PO BID 12/02/16 06/28/17 Review of Systems - Physician Review All systems were reviewed & negative as marked: Yes - Review of Systems Constitutional: Fevers Respiratory: absent: SOB Cardiovascular: Palpitations. absent: Chest Pain Gastrointestinal: Abdominal Pain. absent: Diarrhea, Nausea, Vomiting Musculoskeletal: absent: Back Pain, Neck Pain Physical Exam Vital Signs Reviewed: Yes Vital Signs Temp Pulse Resp BP Pulse Ox 06/28/17 06:30 99.4 F 94 H 18 131/74 97 06/28/17 03:34 100.0 F H 112 H 18 129/85 99 Temperature: Febrile Blood Pressure: Normal Pulse: Tachycardic Respiratory Rate: Normal Appearance: Positive for: Well-Appearing, Non-Toxic, Comfortable Pain Distress: None Mental Status: Positive for: Alert and Oriented X 3 - Systems Exam Head: Present: Atraumatic, Normocephalic Pupils: Present: PERRL Extroacular Muscles: Present: EOMI Conjunctiva: Present: Normal Neck: Present: Normal Range of Motion. No: Meningeal Signs Respiratory/Chest: Present: Clear to Auscultation, Good Air Exchange. No: Respiratory Distress, Accessory Muscle Use Cardiovascular: Present: Regular Rate and Rhythm, Normal S1, S2. No: Murmurs Abdomen: Present: Tenderness (diffused tenderness mainly to the upper mid abdomen.), Normal Bowel Sounds. No: Distention, Peritoneal Signs, Rebound, Guarding Back: Present: Normal Inspection Upper Extremity: Present: Normal Inspection. No: Cyanosis, Edema Lower Extremity: Present: Normal Inspection. No: Edema Neurological: Present: GCS=15, CN II-XII Intact, Speech Normal Skin: Present: Warm, Dry, Normal Color. No: Rashes Psychiatric: Present: Alert, Oriented x 3, Normal Insight, Normal Concentration Medical Decision Making ED Course and Treatment: 06/28/17 04:19 Impression: 41 year old male presents to the Emergency department for abdominal discomfort associated with fever and palpitations. Plan: -- VBG -- CT of Abdomen/Pelvis -- EKG -- Labs -- Chest X-ray -- Dilaudid -- Pepcid -- Zofran -- Blood Culture -- Urine Culture -- Urinalysis -- Reassess and disposition Progress Notes: 06/28/17 04:42 Chest X-ray reviewed, shows no acute processes. 06/28/17 05:42 EKG: Ordered, reviewed, and independently interpreted the EKG. Rate : 107 BPM Rhythm : Sinus Tachycardia. Interpretation : Non-specific ST changes. 06/28/17 06:49 Pt. with intractable abdominal pain/fever/leukocytosis.Pt. to go to hospitalist service .Endorsed to oncoming ER attending to discuss case with the hospitalist - Lab Interpretations Lab Results: 06/28/17 04:20 06/28/17 04:20 Lab Results 06/28/17 04:20: Sodium 146, Chloride 105, Potassium 3.7, Carbon Dioxide 27, Anion Gap 17, BUN 18, Creatinine 1.0, Est GFR ( Amer) > 60, Est GFR (Non- Af Amer) > 60, Random Glucose 99, Calcium 9.1, Phosphorus 3.6, Magnesium 1.8, Total Bilirubin 0.6, AST 18, ALT 16, Alkaline Phosphatase 116, Total Protein 7.9 , Albumin 3.8, Globulin 4.1, Albumin/Globulin Ratio 0.9 L 06/28/17 04:20: pO2 143 H, VBG pH 7.46 H, VBG pCO2 41.0, VBG HCO3 29.2 H, VBG Total CO2 30.5 H, VBG O2 Sat (Calc) 100.1 H, VBG Base Excess 4.9 H, VBG Potassium 3.6, Sodium 138.0, Chloride 106.0, Glucose 103, Lactate 1.3, FiO2 21.0 , Venous Blood Potassium 3.6 06/28/17 04:20: PT 16.1 H, INR 1.40 H, APTT 36.1 06/28/17 04:20: WBC 13.0 H, RBC 4.48, Hgb 11.3 L, Hct 36.6 L, MCV 81.7, MCH 25.2 , MCHC 30.9 L, RDW 16.2 H, Plt Count 353, MPV 9.3, Gran % 71.0 H, Lymph % (Auto ) 19.4 L, Rains % (Auto) 8.3 H, Eos % (Auto) 1.2 L, Baso % (Auto) 0.1, Gran # 9.24 H, Lymph # (Auto) 2.5, Rains # (Auto) 1.1 H, Eos # (Auto) 0.2, Baso # (Auto ) 0.01 - RAD Interpretation Radiology Orders: 06/28/17 03:57 CHEST PORTABLE [RAD] Stat 06/28/17 04:10 ABD & PELVIS IV CONTRAST ONLY [CT] Stat Residential Real Estate Agent: Radiologist - EKG Interpretation Interpreted by ED Physician: Yes Type: 12 lead EKG - Medication Orders Current Medication Orders: Discontinued Medications Hydromorphone HCl (Dilaudid) 2 mg IVP STAT STA Stop: 06/28/17 04:06 Last Admin: 06/28/17 04:48 Dose: 2 mg [facility] Pain Assessment Document 06/28/17 04:48 [facility] (Rec: 06/28/17 04:48 [facility]) Pain Reassessment Is this a pain reassessment? No Sleep Is patient sleeping during reassessment? No Presence of Pain Presence of Pain Yes Pain Scale Used Pain Scale Used Numeric Location Upper or Lower Upper Pain Location Body Site Abdomen Description Description Sharp Intensity of Pain at present 8 Acceptable Level of Pain 0 IVP Administration Document 06/28/17 04:48 R (Rec: 06/28/17 04:48 [id number] Charges for Administration # of IVP Administrations 1 Re-Assess: [facility] Pain Assessment Document 06/28/17 05:45 R (Rec: 06/28/17 06:27 [id number] Pain Reassessment Is this a pain reassessment? Yes Sleep Is patient sleeping during reassessment? No Presence of Pain Presence of Pain Yes Pain Scale Used Pain Scale Used Numeric Hydromorphone HCl (Dilaudid) 2 mg IVP STAT STA Stop: 06/28/17 06:17 Last Admin: 06/28/17 06:38 Dose: 2 mg [facility] Pain Assessment Document 06/28/17 06:38 [facility] (Rec: 06/28/17 06:38 [id number] Pain Reassessment Is this a pain reassessment? No Sleep Is patient sleeping during reassessment? No Presence of Pain Presence of Pain Yes Pain Scale Used Pain Scale Used Numeric Location Upper or Lower Upper Pain Location Body Site Abdomen Description Description Sharp Intensity of Pain at present 8 Acceptable Level of Pain 0 Pain Behavior Rubbing Site Aggravating Factors ADL's IVP Administration Document 06/28/17 06:38 [facility] (Rec: 06/28/17 06:38 [facility]) Charges for Administration # of IVP Administrations 1 Sodium Chloride (Sodium Chloride 0.9%) 1,000 mls @ 2,000 mls/hr IV .Q30M ONE Stop: 06/28/17 04:25 Last Admin: 06/28/17 05:23 Dose: 2,000 mls/hr eMAR Start Stop Document 06/28/17 05:23 [facility] (Rec: 06/28/17 05:24 [id number] Intravenous Solution Start Date 06/28/17 Start Time 05:00 Famotidine (Pepcid 20mg/50ml Premix) 20 mg in 50 mls @ 100 mls/hr IVPB ONCE ONE Stop: 06/28/17 04:44 Last Admin: 06/28/17 04:47 Dose: 100 mls/hr eMAR Start Stop Document 06/28/17 04:47 [facility] (Rec: 06/28/17 04:48 [facility]) Intravenous Solution Start Date 06/28/17 Start Time 04:47 Metronidazole (Flagyl) 500 mg in 100 mls @ 100 mls/hr IVPB STAT STA PRN Reason: Protocol Stop: 06/28/17 06:49 Last Admin: 06/28/17 06:26 Dose: 100 mls/hr eMAR Start Stop Document 06/28/17 06:26 R (Rec: 06/28/17 06:26 [facility]) Intravenous Solution Start Date 06/28/17 Start Time 06:26 Ceftriaxone Sodium (Rocephin 1 Gram Ivpb) 1 gm in 100 mls @ 200 mls/hr IV ONCE STA PRN Reason: Protocol Stop: 06/28/17 06:18 Last Admin: 06/28/17 05:55 Dose: 200 mls/hr eMAR Start Stop Document 06/28/17 05:55 [facility] (Rec: 06/28/17 05:55 [id number] Intravenous Solution Start Date 06/28/17 Start Time 05:55 End Date 06/28/17 End time 06:25 Total Infusion Time 30 Ondansetron HCl (Zofran Inj) 4 mg IVP ONCE ONE Stop: 06/28/17 04:06 Last Admin: 06/28/17 04:48 Dose: 4 mg IVP Administration Document 06/28/17 04:48 [facility] (Rec: 06/28/17 04:48 [id number] Charges for Administration # of IVP Administrations 1 Ondansetron HCl (Zofran Inj) 4 mg IVP ONCE ONE Stop: 06/28/17 06:32 Last Admin: 06/28/17 06:41 Dose: 4 mg IVP Administration Document 06/28/17 06:41 [facility] (Rec: 06/28/17 06:41 [id number] Charges for Administration # of IVP Administrations 1 - Scribe Statement The provider has reviewed the documentation as recorded by the Scribe Elina Mueller. All medical record entries made by the Scribe were at my direction and personally dictated by me. I have reviewed the chart and agree that the record accurately reflects my personal performance of the history, physical exam, medical decision making, and the department course for this patient. I have also personally directed, reviewed, and agree with the discharge instructions and disposition. Disposition/Present on Arrival - Present on Arrival Any Indicators Present on Arrival: No History of DVT/PE: No History of Uncontrolled Diabetes: No Urinary Catheter: No History of Decub. Ulcer: No History Surgical Site Infection Following: None - Disposition Have Diagnosis and Disposition been Completed?: Yes Diagnosis: Fever, Abdominal pain Disposition: HOSPITALIZED Disposition Time: 07:05 Patient Plan: Observation Patient Problems: Current Active Problems Problem Status Onset Abdominal pain Acute Fever Acute Condition: STABLE Forms: [employer] (French)
[2017-06-28 04:38] LABS: BASO # 0.01 K/mm3 (0.0-2.0); BASO % 0.1 % (0.0-3.0); EOS # 0.2 (0.0-0.7); EOS % 1.2 % (1.5-5.0); GRAN # 9.24 (1.4-6.5); HEMOGLOBIN 11.3 g/dL (14.0-18.0); LYMPH # 2.5 (1.2-3.4); LYMPH % 19.4 % (22.0-35.0); MEAN CELL VOLUME 81.7 fl (80.0-105.0); MEAN CORPUSCULAR HEMOGLOBIN 25.2 pg (25.0-35.0); MEAN CORPUSCULAR HGB CONC 30.9 g/dl (31.0-37.0); MEAN PLATELET VOLUME 9.3 fl (7.0-11.0); MONO # 1.1 (0.1-0.6); MONO % 8.3 % (1.0-6.0); RBC 4.48 10^6/uL (3.5-6.1); RED CELL DISTRIBUTION WIDTH 16.2 % (11.5-14.5)
[2017-06-28 04:47] LABS: ALB/GLOB RATIO 0.9 (1.1-1.8); ALBUMIN 3.8 g/dL (3.0-4.8); ALT/SGPT 16 U/L (7-56); AST/SGOT 18 U/L (17-59); BLOOD UREA NITROGEN 18 mg/dL (7-21); CALCIUM 9.1 mg/dL (8.4-10.5); GFR AFRICAN-AMERICAN > 60; GFR NON-AFRICAN AMERICAN > 60
[2017-06-28 04:57] LABS: INR 1.4 (0.93-1.08); PARTIAL THROMBOPLASTIN TIME 36.1 Seconds (25.1-36.5); PROTHROMBIN TIME 16.1 SECONDS (9.4-12.5)
[2017-06-28] MEDS ORDERED: Iohexol 350 MG/100 ML VIAL ONE (04:57)
[2017-06-28] MEDS ORDERED: cefTRIAXone 1 gm 1 GM/100 ML BAG IV STA (05:49)
[2017-06-28] MEDS ORDERED: metroNIDAZOLE IV 500 mg/100 ml 500 MG/100 ML BAG IVPB STA (05:50)
--- NOTE | 2017-06-28 06:31 | CT ---
EXAM: CT Abdomen and Pelvis With Intravenous Contrast CLINICAL HISTORY: 41 years old, male; Pain; Abdominal pain; Generalized; Prior surgery; Surgery type: Gb removed; Additional info: Abdominal pain with weakness TECHNIQUE: Axial computed tomography images of the abdomen and pelvis with intravenous contrast. All CT scans at this facility use one or more dose reduction techniques, viz.: automated exposure control; ma/kV adjustment per patient size (including targeted exams where dose is matched to indication; i.e. head); or iterative reconstruction technique. Coronal and sagittal reformatted images were created and reviewed. CONTRAST: 100 mL of omni 350 administered intravenously. COMPARISON: CT - ABD PELVIS IV CONTRAST ONLY 2017-05-19 20:15 FINDINGS: Lung bases: Mild streaky opacities in the lung bases secondary to atelectasis. Infiltrate is not excluded. ABDOMEN: Liver: The liver enhances heterogeneously with mild brad-portal edema, unchanged. Gallbladder and bile ducts: There has been a cholecystectomy. Again demonstrated is stranding and a small amount of fluid anterior to the gallbladder fossa. Biliary leak is not excluded. Stable mild intra-and extrahepatic biliary ductal dilatation. The common bile duct measures 10 mm, unchanged. Pancreas: Unremarkable. No mass. No ductal dilation. Spleen: Unremarkable. No splenomegaly. Adrenals: Unremarkable. No mass. Kidneys and ureters: Unremarkable. No solid mass. No hydronephrosis. Stomach and bowel: Unremarkable. No obstruction. No mucosal thickening. PELVIS: Appendix: A normal appendix is identified. Bladder: Unremarkable. No mass. Reproductive: Unremarkable as visualized. ABDOMEN and PELVIS: Intraperitoneal space: No free air. Bones/joints: No acute fracture. No dislocation. Soft tissues: Unremarkable. Vasculature: Unremarkable. There are a few mildly prominent bilateral inguinal lymph nodes. IMPRESSION: No significant interval change. Status post cholecystectomy with stranding and a small amount of fluid anterior to the gallbladder fossa. Biliary leak is not excluded. Clinical correlation and followup recommended. Stable mild intra-and extrahepatic biliary ductal dilatation. Stable mild periportal edema.
[2017-06-28 06:57] LABS: VENOUS BLOOD GAS BASE EXCESS 4.9 mmol/L (0.0-2.0); VENOUS BLOOD GAS PO2 143 mm/Hg (30-55); VENOUS BLOOD PH 7.46 (7.32-7.43)
--- NOTE | 2017-06-28 08:38 | RAD ---
HISTORY: Sepsis Patient COMPARISON: 12/02/2016 FINDINGS: LUNGS: No active pulmonary disease. PLEURA: No significant pleural effusion identified, no pneumothorax apparent. CARDIOVASCULAR: Mild cardiomegaly. Mild vascular congestion OSSEOUS STRUCTURES: No significant abnormalities. VISUALIZED UPPER ABDOMEN: Normal. OTHER FINDINGS: None. IMPRESSION: Mild cardiomegaly and mild vascular congestion
--- NOTE | 2017-06-28 10:20 | CP.PCM.HP ---
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 Patient reported he woke up and was having diffuse 10/10 sharp abdominal pain. He had no inciting factors but reports that lack of sleep, lack of food, and stress seem to aggravate his pain while eating well and being rested alleviates his pain. He has had chronic abd pain for 4 years now and sees 2 GI doctors and a outpatient and a orthopedic nurse outpatient. Patient denies associated nausea/vomiting/ diarrhea/constipation/melena/bloody stool. Patient's last BM was yesterday which was regular and he is passing fas; usually has a BM everyday. Patient's last meal was yesterday around 6pm and he ate fish. Patient also complained of some mild chest pain which he described as a burning sensation in his epigastric area. He rated it a 7/10 and said it felt like acid reflux. He has no cardiac history. On ROS he admitted to subjective fevers, chills, palpitations, sweats, and some mild SOB. He denied any headache, dizziness, cough, urinary complaints, pain/swelling in his legs b/l. Patient is able to ambulate and denied any recent travel, illnesses, sick contacts. 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 Elkins [hasn't seen in a couple of months]- had an EGD on Feb 24 that showed gastritis Manager Organizational: Dr. Rosado- sees monthsly- next appt is July 16 Pedodontist: Dr. Leigh- sees monthly- next appt is June 29 Present on Admission - Present on Admission Any Indicators Present on Admission: No Review of Systems - Review of Systems All systems: reviewed and no additional remarkable complaints except - Constitutional Constitutional: As Per HPI, Chills, Fever. absent: Headache - EENT Eyes: As Per HPI. absent: Blurred Vision Ears: As Per HPI. absent: Dizziness Nose/Mouth/Throat: As Per HPI. absent: Sore Throat - Cardiovascular Cardiovascular: As Per HPI, Chest Pain, Dyspnea (mild). absent: Edema, Leg Edema - Respiratory Respiratory: As Per HPI, Dyspnea (mild). absent: Cough, Wheezing - Gastrointestinal Gastrointestinal: As Per HPI, Abdominal Pain, Heartburn. absent: Belching, Constipation, Diarrhea, Melena, Nausea, Vomiting - Genitourinary Genitourinary: As Per HPI. absent: Dysuria, Hematuria, Pyuria - Musculoskeletal Musculoskeletal: As Per HPI. absent: Back Pain, Numbness, Tingling - Integumentary Integumentary: As Per HPI. absent: Dry Skin, Rash - Neurological Neurological: As Per HPI. absent: Dizziness, Headaches - Psychiatric Psychiatric: As Per HPI. absent: Anxiety, Depression - Endocrine Endocrine: As Per HPI. absent: Palpitations, Polydipsia, Polyphagia, Polyuria - Hematologic/Lymphatic Hematologic: As Per HPI. absent: Easy Bleeding, Easy Bruising Past Patient History - Infectious Disease Hx of Infectious Diseases: None - Tetanus Immunizations Tetanus Immunization: Unknown - Past Social History Smoking Status: Never Smoked - CARDIAC Hx Hypertension: No Hx Pacemaker: No - PULMONARY Hx Asthma: Yes - NEUROLOGICAL Hx Neurological Disorder: No - HEENT Hx HEENT Problems: No - RENAL Hx Chronic Kidney Disease: No - ENDOCRINE/METABOLIC Hx Endocrine Disorders: Yes Other/Comment: Inflammation of the pancreas and L side of the Liver, Auto immune disease - HEMATOLOGICAL/ONCOLOGICAL Hx Anemia: Yes - INTEGUMENTARY Hx Dermatological Problems: No - MUSCULOSKELETAL/RHEUMATOLOGICAL Hx Musculoskeletal Disorders: No Hx Falls: No - GASTROINTESTINAL Hx Gall Bladder Disease: Yes (LAP ALTAGRACIA ON 06/06/15) Hx Pancreatitis: Yes - GENITOURINARY/GYNECOLOGICAL Hx Genitourinary Disorders: No - PSYCHIATRIC Hx Depression: No Hx Substance Use: No - SURGICAL HISTORY Hx Cholecystectomy: Yes - ANESTHESIA Hx Anesthesia: Yes Hx Anesthesia Reactions: No Hx Malignant Hyperthermia: No Meds Allergies/Adverse Reactions: Allergies Allergy/AdvReac Type Severity Reaction Status Date / Time No Known Allergies Allergy Verified 05/19/17 18:10 Physical Exam - Constitutional Appears: Non-toxic, No Acute Distress - Head Exam Head Exam: ATRAUMATIC, NORMAL INSPECTION, NORMOCEPHALIC - Eye Exam Eye Exam: EOMI, Normal appearance, PERRL. absent: Conjunctival injection, Scleral icterus - ENT Exam ENT Exam: Mucous Membranes Moist - Neck Exam Neck exam: Positive for: Full Rom, Normal Inspection. Negative for: Lymphadenopathy - Respiratory Exam Respiratory Exam: Clear to Auscultation Bilateral, NORMAL BREATHING PATTERN. absent: Accessory Muscle Use, Rales, Rhonchi, Wheezes, Respiratory Distress - Cardiovascular Exam Cardiovascular Exam: REGULAR RHYTHM, RRR, +S1, +S2 - GI/Abdominal Exam GI & Abdominal Exam: Hernia (small umbilical hernia, nontender), Hypoactive Bowel Sounds, Soft, Tenderness (epigastrum). absent: Distended, Firm, Guarding , Rigid - Rectal Exam Rectal Exam: Deferred - Extremities Exam Extremities exam: Positive for: normal capillary refill, normal inspection, pedal pulses present. Negative for: pedal edema - Back Exam Back exam: NORMAL INSPECTION. 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 Plan: Abdominal pain -CT abd/pelvis: no significant interval change. s/p cholecystectomy with stranding and a small amt of fluid anterior the GB fossa. Biliary leak is not excluded. Clinical correlation and f/u recommended. Stable mild intra-and- extrahepatic biliary ductal dilatation. Stable mild periportal edema. -Dilaudid 1mg ivp q6 prn severe pain -Oxycodone 10mg po q6 prn moderate pain -Zofran 4mg ivp q6 prn nausea/vomiting -Protonix 40mg ivp qd -GI consult Dr. Santo Hx of Autoimmune IgG4 -continue home med prednisone 10mg po bid Hx of GERD -continue home med carafate 1gm po achs Hx of autoimmune cholangitis -continue home med ursodiol 300mg po bid Hx of hepatic vein thrombosis -continue home med pradaxa 150mg po bid Hx of low vit D -continue home med calcium/vit D 1 tab po bid GI ppx: Protonix 40mg ivp qd DVT ppx: SCDs, patient on pradaxa at home Diet: Liquid Discussed with Dr. Tashia Scott PGY2 <Silvano Lao B - Last Filed: 07/01/17 17:31> Results - Vital Signs Recent Vital Signs: Last Vital Signs Temp 98.4 F 07/01/17 15:16 Pulse 99 H 07/01/17 15:16 Resp 20 07/01/17 15:16 BP 130/86 07/01/17 15:16 Pulse Ox 99 07/01/17 15:16 - Labs Result Diagrams: 07/01/17 07:00 07/01/17 07:00 Labs: Laboratory Results - last 24 hr 07/01/17 07/01/17 07:00 07:00 WBC 9.7 RBC 4.53 Hgb 11.3 L Hct 36.6 L MCV 80.8 MCH 24.9 L MCHC 30.9 L RDW 16.1 H Plt Count 423 MPV 8.8 Gran % 66.8 Lymph % (Auto) 21.2 L Stanton % (Auto) 10.8 H Eos % (Auto) 0.9 L Baso % (Auto) 0.3 Gran # 6.46 Lymph # (Auto) 2.1 Stanton # (Auto) 1.1 H Eos # (Auto) 0.1 Baso # (Auto) 0.03 Sodium 144 Potassium 3.7 Chloride 103 Carbon Dioxide 29 Anion Gap 15 BUN 18 Creatinine 1.0 Est GFR ( Amer) > 60 Est GFR (Non-Af Amer) > 60 Random Glucose 80 Calcium 9.2 Total Bilirubin 0.5 AST 22 ALT 17 Alkaline Phosphatase 110 Total Protein 7.9 Albumin 3.7 Globulin 4.3 Albumin/Globulin Ratio 0.9 L Attending/Attestation - Attestation I have personally seen and examined this patient.: Yes I have fully participated in the care of the patient.: Yes I have reviewed all pertinent clinical information: Yes Notes (Text): I have seen and examined the patient at bedside. Agree with the above note.
[2017-06-28] MEDS ORDERED: oxyCODONE 10 mg Immediate Release Tab PO PRN (11:30)
[2017-06-28] MEDS: HYDROmorphone 1 mg/ml ISec IVP PRN ×2 (12:57→19:27)
[2017-06-28] MEDS: metroNIDAZOLE IV 500 mg/100 ml 500 MG/100 ML BAG IVPB SCH ×2 (12:59→21:33)
--- NOTE | 2017-06-28 15:12 | CARD ---
APPROVED REPORT EKG Measurement Heart [id number] <Conclusion> Sinus tachycardia Moderate voltage criteria for LVH, may be normal variant Borderline ECG
[2017-06-28] MEDS: Calcium-Vit D 250 mg-125 Units Tab UD PO SCH (17:15)
[2017-06-29] MEDS: HYDROmorphone 1 mg/ml ISec IVP PRN ×4 (04:16→21:30)
[2017-06-29] MEDS: metroNIDAZOLE IV 500 mg/100 ml 500 MG/100 ML BAG IVPB SCH ×3 (05:27→21:30)
[2017-06-29 07:39] LABS: BASO # 0.02 K/mm3 (0.0-2.0); BASO % 0.2 % (0.0-3.0); EOS % 0.3 % (1.5-5.0); GRAN # 7.34 (1.4-6.5); GRAN % 74.9 % (50.0-68.0); HEMOGLOBIN 11.3 g/dL (14.0-18.0); LYMPH # 1.5 (1.2-3.4); LYMPH % 14.8 % (22.0-35.0); MEAN CELL VOLUME 80.6 fl (80.0-105.0); MEAN CORPUSCULAR HEMOGLOBIN 25.5 pg (25.0-35.0); MEAN CORPUSCULAR HGB CONC 31.6 g/dl (31.0-37.0); MONO % 9.8 % (1.0-6.0); RBC 4.44 10^6/uL (3.5-6.1); RED CELL DISTRIBUTION WIDTH 15.7 % (11.5-14.5); WHITE BLOOD COUNT 9.8 10^3/ul (4.5-11.0)
[2017-06-29 07:56] LABS: ALBUMIN 3.8 g/dL (3.0-4.8); ALT/SGPT 20 U/L (7-56); AST/SGOT 18 U/L (17-59); BLOOD UREA NITROGEN 14 mg/dL (7-21); CALCIUM 9.3 mg/dL (8.4-10.5); GFR AFRICAN-AMERICAN > 60; GFR NON-AFRICAN AMERICAN > 60
[2017-06-29] MEDS: Calcium-Vit D 250 mg-125 Units Tab UD PO SCH ×2 (09:49→17:25)
[2017-06-29] MEDS: cefTRIAXone 1 gm 1 GM/100 ML BAG IVPB SCH (09:49)
--- NOTE | 2017-06-29 10:40 | CP.PCM.PN ---
<Ashu Jaramillo - Last Filed: 06/29/17 18:51> Subjective - Date & Time of Evaluation Date of Evaluation: 06/29/17 Time of Evaluation: 07:20 - Subjective Subjective: Ashu Jaramillo DO, PGY-1: Hospitalist Service Patient seen and examined at bedside. Patient denies nausea, vomiting, diarrhea , fever, or chills. Patient reports tolerating liquid diet, but still complains of upper abdominal pain. Patient requiring 3 mg of IV Dilaudid in the past 24 hours. Patient is willing to try full liquid diet. Nurse reports no events overnight. Objective - Vital Signs/Intake and Output Vital Signs (last 24 hours): Temp Pulse Resp BP Pulse Ox 98.7 F 68 22 114/85 93 L 06/29/17 06:00 06/29/17 06:00 06/29/17 06:00 06/29/17 06:00 06/29/17 06:00 Intake and Output: 06/29/17 06/29/17 06:59 18:59 Intake Total 780 Balance 780 - Medications Medications: Current Medications Calcium/Vitamin D (Oscal-D 250 Mg-125 Units Tab) 1 tab PO BID [facility] Last Admin: 06/29/17 09:49 Dose: 1 tab Dabigatran (Pradaxa) 150 mg PO BID [facility] PRN Reason: Protocol Last Admin: 06/29/17 09:49 Dose: 150 mg Hydromorphone HCl (Dilaudid) 1 mg IVP Q6H PRN PRN Reason: Pain, severe (8-10) Last Admin: 06/29/17 10:14 Dose: 1 mg Metronidazole (Flagyl) 500 mg in 100 mls @ 100 mls/hr IVPB Q8 [facility] PRN Reason: Protocol Last Admin: 06/29/17 05:27 Dose: 100 mls/hr Ceftriaxone Sodium (Rocephin 1 Gram Ivpb) 1 gm in 100 mls @ 100 mls/hr IVPB DAILY [facility] PRN Reason: Protocol Last Admin: 06/29/17 09:49 Dose: 100 mls/hr Ondansetron HCl (Zofran Inj) 4 mg IVP Q6H PRN PRN Reason: Nausea/Vomiting Oxycodone HCl (Oxycodone Immediate Release Tab) 10 mg PO Q6 PRN PRN Reason: Pain, moderate (4-7) Pantoprazole Sodium (Protonix Inj) 40 mg IVP DAILY [facility] Last Admin: 06/29/17 09:49 Dose: 40 mg Prednisone (Prednisone Tab) 10 mg PO BID [facility] Last Admin: 06/29/17 09:49 Dose: 10 mg Sucralfate (Carafate Tab) 1 gm PO ACHS [facility] Last Admin: 06/29/17 07:45 Dose: 1 gm Ursodiol (Actigall) 300 mg PO BID [facility] Last Admin: 06/29/17 09:49 Dose: 300 mg - Labs Labs: 06/29/17 07:15 06/29/17 07:15 PT 16.1 SECONDS (9.4-12.5) H 06/28/17 04:20 INR 1.40 (0.93-1.08) H 06/28/17 04:20 APTT 36.1 Seconds (25.1-36.5) 06/28/17 04:20 - Constitutional Appears: Well, Non-toxic - Head Exam Head Exam: ATRAUMATIC, NORMOCEPHALIC - Eye Exam Eye Exam: EOMI, Normal appearance - ENT Exam ENT Exam: Mucous Membranes Moist, Normal Oropharynx - Neck Exam Neck Exam: Normal Inspection - Respiratory Exam Respiratory Exam: Clear to Ausculation Bilateral, NORMAL BREATHING PATTERN. absent: Accessory Muscle Use - Cardiovascular Exam Cardiovascular Exam: RRR, +S1, +S2 - GI/Abdominal Exam GI & Abdominal Exam: Tenderness (to light palpation in upper quadrants), Normal Bowel Sounds. 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 Plan: Abdominal pain -CT abd/pelvis: no significant interval change. s/p cholecystectomy with stranding and a small amt of fluid anterior the GB fossa. Biliary leak is not excluded. Clinical correlation and f/u recommended. Stable mild intra-and- extrahepatic biliary ductal dilatation. Stable mild periportal edema. -Dilaudid 1mg ivp q6 prn severe pain -Oxycodone 10mg po q6 prn moderate pain -Zofran 4mg ivp q6 prn nausea/vomiting -Protonix 40mg ivp qd -Diet advanced to full liquid -GI consult Dr. Santo, agree with recommendations of continuing current antibiotic regiment. - MRCP with and without contrast ordered by GI, will follow up. Hx of Autoimmune IgG4 -continue home med prednisone 10mg po bid - [employer] contact # [phone] Hx of GERD -continue home med carafate 1gm po achs Hx of autoimmune cholangitis -continue home med ursodiol 300mg po bid Hx of hepatic vein thrombosis -continue home med pradaxa 150mg po bid Hx of low vit D -continue home med calcium/vit D 1 tab po bid GI ppx: Protonix 40mg ivp qd DVT ppx: SCDs, patient on pradaxa at home Diet: Full-Liquid diet Discussed with Dr. Tashia Jaramillo PGY1 <Silvano Lao - Last Filed: 06/30/17 15:01> Objective - Vital Signs/Intake and Output Vital Signs (last 24 hours): Temp Pulse Resp BP Pulse Ox 98.4 F 87 20 130/96 H 100 06/30/17 14:04 06/30/17 14:04 06/30/17 14:04 06/30/17 14:04 06/30/17 14:04 Intake and Output: 06/30/17 06/30/17 06:59 18:59 Intake Total 910 Balance 910 - Medications Medications: Current Medications Calcium/Vitamin D (Oscal-D 250 Mg-125 Units Tab) 1 tab PO BID [facility] Last Admin: 06/30/17 10:28 Dose: 1 tab Dabigatran (Pradaxa) 150 mg PO BID [facility] PRN Reason: Protocol Last Admin: 06/30/17 10:28 Dose: 150 mg Hydromorphone HCl (Dilaudid) 0.5 mg IVP Q6H PRN PRN Reason: Pain, severe (8-10) Metronidazole (Flagyl) 500 mg in 100 mls @ 100 mls/hr IVPB Q8 [facility] PRN Reason: Protocol Last Admin: 06/30/17 05:40 Dose: 100 mls/hr Ceftriaxone Sodium (Rocephin 1 Gram Ivpb) 1 gm in 100 mls @ 100 mls/hr IVPB DAILY [facility] PRN Reason: Protocol Last Admin: 06/30/17 10:28 Dose: 100 mls/hr Ondansetron HCl (Zofran Inj) 4 mg IVP Q6H PRN PRN Reason: Nausea/Vomiting Oxycodone HCl (Oxycodone Immediate Release Tab) 10 mg PO Q6 PRN PRN Reason: Pain, moderate (4-7) Pantoprazole Sodium (Protonix Ec Tab) 40 mg PO ACB [facility] Prednisone (Prednisone Tab) 10 mg PO BID [facility] Last Admin: 06/30/17 10:28 Dose: 10 mg Sucralfate (Carafate Tab) 1 gm PO ACHS [facility] Last Admin: 06/30/17 11:57 Dose: Not Given Ursodiol (Actigall) 300 mg PO BID [facility] Last Admin: 06/30/17 10:28 Dose: 300 mg - Labs Labs: 06/30/17 07:00 06/30/17 07:00 PT 16.1 SECONDS (9.4-12.5) H 06/28/17 04:20 INR 1.40 (0.93-1.08) H 06/28/17 04:20 APTT 36.1 Seconds (25.1-36.5) 06/28/17 04:20 Attending/Attestation - Attestation I have personally seen and examined this patient.: Yes I have fully participated in the care of the patient.: Yes I have reviewed all pertinent clinical information, including history, physical exam and plan: Yes Notes (Text): I have seen and examined the patient at bedside. 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 CT noted. Patient continues to have abdominal pain and is requiring IV dilaudid. Discussed with GI team. MRCP and duplex US will be ordered. For now, will continue full liquid diet and IV antibiotics.
--- NOTE | 2017-06-29 12:46 | CP.PCM.PN ---
<Ann Yanez - Last Filed: 06/29/17 16:26> Subjective - Date & Time of Evaluation Date of Evaluation: 06/29/17 Time of Evaluation: 11:00 - Subjective Subjective: PGY-2 GI progress note Patient was seen and examined at bedside. No acute distress. Patient states that his abd pain has improved but he continues to have upper quadrant pain. Patient states that he would like solid food diet, he is tolerating his liquid diet. He denies nausea, vomiting, diarrhea and constipation. Objective - Vital Signs/Intake and Output Vital Signs (last 24 hours): Temp Pulse Resp BP Pulse Ox 98.7 F 68 22 114/85 93 L 06/29/17 06:00 06/29/17 06:00 06/29/17 06:00 06/29/17 06:00 06/29/17 06:00 Intake and Output: 06/29/17 06/29/17 06:59 18:59 Intake Total 780 Balance 780 - Medications Medications: Current Medications Calcium/Vitamin D (Oscal-D 250 Mg-125 Units Tab) 1 tab PO BID [facility] Last Admin: 06/29/17 09:49 Dose: 1 tab Dabigatran (Pradaxa) 150 mg PO BID [facility] PRN Reason: Protocol Last Admin: 06/29/17 09:49 Dose: 150 mg Hydromorphone HCl (Dilaudid) 1 mg IVP Q6H PRN PRN Reason: Pain, severe (8-10) Last Admin: 06/29/17 10:14 Dose: 1 mg Metronidazole (Flagyl) 500 mg in 100 mls @ 100 mls/hr IVPB Q8 [facility] PRN Reason: Protocol Last Admin: 06/29/17 05:27 Dose: 100 mls/hr Ceftriaxone Sodium (Rocephin 1 Gram Ivpb) 1 gm in 100 mls @ 100 mls/hr IVPB DAILY [facility] PRN Reason: Protocol Last Admin: 06/29/17 09:49 Dose: 100 mls/hr Ondansetron HCl (Zofran Inj) 4 mg IVP Q6H PRN PRN Reason: Nausea/Vomiting Oxycodone HCl (Oxycodone Immediate Release Tab) 10 mg PO Q6 PRN PRN Reason: Pain, moderate (4-7) Pantoprazole Sodium (Protonix Inj) 40 mg IVP DAILY [facility] Last Admin: 06/29/17 09:49 Dose: 40 mg Prednisone (Prednisone Tab) 10 mg PO BID [facility] Last Admin: 06/29/17 09:49 Dose: 10 mg Sucralfate (Carafate Tab) 1 gm PO ACHS [facility] Last Admin: 06/29/17 11:45 Dose: 1 gm Ursodiol (Actigall) 300 mg PO BID [facility] Last Admin: 06/29/17 09:49 Dose: 300 mg - Labs Labs: 06/29/17 07:15 06/29/17 07:15 PT 16.1 SECONDS (9.4-12.5) H 06/28/17 04:20 INR 1.40 (0.93-1.08) H 06/28/17 04:20 APTT 36.1 Seconds (25.1-36.5) 06/28/17 04:20 - Constitutional Appears: Well, No Acute Distress - Head Exam Head Exam: ATRAUMATIC, NORMOCEPHALIC - Eye Exam Eye Exam: EOMI, Normal appearance - ENT Exam ENT Exam: Mucous Membranes Moist - Respiratory Exam Respiratory Exam: Clear to Ausculation Bilateral, NORMAL BREATHING PATTERN. absent: Decreased Breath Sounds, Rales, Rhonchi, Wheezes, Respiratory Distress - Cardiovascular Exam Cardiovascular Exam: REGULAR RHYTHM, +S1, +S2. absent: Bradycardia, Tachycardia , Murmur - GI/Abdominal Exam GI & Abdominal Exam: Soft, Tenderness (mild epigastric), Normal Bowel Sounds. absent: Distended, Firm, Guarding - Extremities Exam Extremities Exam: Normal Inspection. 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 s/p cholecystectomy with stranding and a small amt of fluid anterior the GB fossa. Biliary leak is not excluded. will order MRI. MRCP of abd with and without contrast creatinine is within normal limit continue Protonix 40mg ivp qd continue antibiotics Case reviewed and discussed with my attending <Porter Santo V - Last Filed: 06/30/17 00:37> Objective - Vital Signs/Intake and Output Vital Signs (last 24 hours): Temp Pulse Resp BP Pulse Ox 98.7 F 89 18 122/80 97 06/29/17 14:00 06/29/17 14:00 06/29/17 14:00 06/29/17 14:00 06/29/17 14:00 Intake and Output: 06/29/17 06/30/17 18:59 06:59 Intake Total 960 660 Balance 960 660 - Medications Medications: Current Medications Calcium/Vitamin D (Oscal-D 250 Mg-125 Units Tab) 1 tab PO BID [facility] Last Admin: 06/29/17 17:25 Dose: 1 tab Dabigatran (Pradaxa) 150 mg PO BID [facility] PRN Reason: Protocol Last Admin: 06/29/17 17:24 Dose: 150 mg Hydromorphone HCl (Dilaudid) 1 mg IVP Q6H PRN PRN Reason: Pain, severe (8-10) Last Admin: 06/29/17 21:30 Dose: 1 mg Metronidazole (Flagyl) 500 mg in 100 mls @ 100 mls/hr IVPB Q8 [facility] PRN Reason: Protocol Last Admin: 06/29/17 21:30 Dose: 100 mls/hr Ceftriaxone Sodium (Rocephin 1 Gram Ivpb) 1 gm in 100 mls @ 100 mls/hr IVPB DAILY [facility] PRN Reason: Protocol Last Admin: 06/29/17 09:49 Dose: 100 mls/hr Ondansetron HCl (Zofran Inj) 4 mg IVP Q6H PRN PRN Reason: Nausea/Vomiting Oxycodone HCl (Oxycodone Immediate Release Tab) 10 mg PO Q6 PRN PRN Reason: Pain, moderate (4-7) Pantoprazole Sodium (Protonix Inj) 40 mg IVP DAILY [facility] Last Admin: 06/29/17 09:49 Dose: 40 mg Prednisone (Prednisone Tab) 10 mg PO BID [facility] Last Admin: 06/29/17 17:25 Dose: 10 mg Sucralfate (Carafate Tab) 1 gm PO ACHS [facility] Last Admin: 06/29/17 21:30 Dose: 1 gm Ursodiol (Actigall) 300 mg PO BID [facility] Last Admin: 06/29/17 17:25 Dose: 300 mg - Labs Labs: PT 16.1 SECONDS (9.4-12.5) H 06/28/17 04:20 INR 1.40 (0.93-1.08) H 06/28/17 04:20 APTT 36.1 Seconds (25.1-36.5) 06/28/17 04:20 Attending/Attestation - Attestation I have personally seen and examined this patient.: Yes I have fully participated in the care of the patient.: Yes I have reviewed all pertinent clinical information, including history, physical exam and plan: Yes Notes (Text): This is an addendum to GI progress report dictated by the Accounting Assistant.The patient was seen and examined earlier. Medical records, lab studies, imagings were reviewed. Last 24 hours events reviewed. Agreed with the above treatment plan as outlined in Accounting Assistant 's notes the with the addition of the following still complaining of upper Patient is awaiting for MRI 06/30/17 00:10
[2017-06-30] MEDS: HYDROmorphone 1 mg/ml ISec IVP PRN ×2 (02:30→08:09)
[2017-06-30] MEDS: metroNIDAZOLE IV 500 mg/100 ml 500 MG/100 ML BAG IVPB SCH ×2 (05:40→15:43)
[2017-06-30 07:35] LABS: BASO # 0.02 K/mm3 (0.0-2.0); BASO % 0.2 % (0.0-3.0); EOS # 0.1 (0.0-0.7); EOS % 0.8 % (1.5-5.0); GRAN # 7.62 (1.4-6.5); GRAN % 70.5 % (50.0-68.0); HEMOGLOBIN 11.5 g/dL (14.0-18.0); LYMPH # 2.3 (1.2-3.4); LYMPH % 20.9 % (22.0-35.0); MEAN CELL VOLUME 80.6 fl (80.0-105.0); MEAN CORPUSCULAR HEMOGLOBIN 25.1 pg (25.0-35.0); MEAN CORPUSCULAR HGB CONC 31.2 g/dl (31.0-37.0); MEAN PLATELET VOLUME 8.8 fl (7.0-11.0); MONO # 0.8 (0.1-0.6); MONO % 7.6 % (1.0-6.0); RBC 4.58 10^6/uL (3.5-6.1); RED CELL DISTRIBUTION WIDTH 15.8 % (11.5-14.5); WHITE BLOOD COUNT 10.8 10^3/ul (4.5-11.0)
[2017-06-30 08:30] VITALS: RESP 20
[2017-06-30 08:51] LABS: ALBUMIN 3.9 g/dL (3.0-4.8); ALT/SGPT 22 U/L (7-56); AST/SGOT 16 U/L (17-59); BLOOD UREA NITROGEN 16 mg/dL (7-21); CALCIUM 9.4 mg/dL (8.4-10.5); GFR AFRICAN-AMERICAN > 60; GFR NON-AFRICAN AMERICAN > 60
[2017-06-30] MEDS ORDERED: HYDROmorphone 1 mg/ml ISec IVP PRN (08:58)
[2017-06-30] MEDS ORDERED: Gadodiamide 287 MG/ML VIAL (20ML) IV ONE (09:17)
--- NOTE | 2017-06-30 10:06 | CP.PCM.PN ---
Subjective - Date & Time of Evaluation Date of Evaluation: 06/30/17 Time of Evaluation: 09:00 - Subjective Subjective: PGY-2 GI progress note Patient was seen and examined at bedside. No acute distress. Patient states that his abd pain has improved but he continues to have upper quadrant pain. Patient states that he would like solid food diet, he is tolerating his liquid diet. He denies nausea, vomiting, diarrhea and constipation. Patient states that he has an appointment with his GI doctor on thursday. Objective - Vital Signs/Intake and Output Vital Signs (last 24 hours): Temp Pulse Resp BP Pulse Ox 98.2 F 61 20 118/79 98 06/30/17 08:30 06/30/17 08:30 06/30/17 08:30 06/30/17 08:30 06/30/17 08:30 Intake and Output: 06/30/17 06/30/17 06:59 18:59 Intake Total 910 Balance 910 - Medications Medications: Current Medications Calcium/Vitamin D (Oscal-D 250 Mg-125 Units Tab) 1 tab PO BID [facility] Last Admin: 06/29/17 17:25 Dose: 1 tab Dabigatran (Pradaxa) 150 mg PO BID [facility] PRN Reason: Protocol Last Admin: 06/29/17 17:24 Dose: 150 mg Hydromorphone HCl (Dilaudid) 0.5 mg IVP Q6H PRN PRN Reason: Pain, severe (8-10) Metronidazole (Flagyl) 500 mg in 100 mls @ 100 mls/hr IVPB Q8 [facility] PRN Reason: Protocol Last Admin: 06/30/17 05:40 Dose: 100 mls/hr Ceftriaxone Sodium (Rocephin 1 Gram Ivpb) 1 gm in 100 mls @ 100 mls/hr IVPB DAILY [facility] PRN Reason: Protocol Last Admin: 06/29/17 09:49 Dose: 100 mls/hr Ondansetron HCl (Zofran Inj) 4 mg IVP Q6H PRN PRN Reason: Nausea/Vomiting Oxycodone HCl (Oxycodone Immediate Release Tab) 10 mg PO Q6 PRN PRN Reason: Pain, moderate (4-7) Pantoprazole Sodium (Protonix Inj) 40 mg IVP DAILY [facility] Last Admin: 06/29/17 09:49 Dose: 40 mg Prednisone (Prednisone Tab) 10 mg PO BID [facility] Last Admin: 06/29/17 17:25 Dose: 10 mg Sucralfate (Carafate Tab) 1 gm PO ACHS [facility] Last Admin: 06/30/17 08:08 Dose: 1 gm Ursodiol (Actigall) 300 mg PO BID [facility] Last Admin: 06/29/17 17:25 Dose: 300 mg - Labs Labs: 06/30/17 07:00 06/30/17 07:00 PT 16.1 SECONDS (9.4-12.5) H 06/28/17 04:20 INR 1.40 (0.93-1.08) H 06/28/17 04:20 APTT 36.1 Seconds (25.1-36.5) 06/28/17 04:20 - Constitutional Appears: Well, No Acute Distress - Head Exam Head Exam: ATRAUMATIC, NORMAL INSPECTION, NORMOCEPHALIC - Eye Exam Eye Exam: EOMI, Normal appearance - ENT Exam ENT Exam: Mucous Membranes Moist - Respiratory Exam Respiratory Exam: Clear to Ausculation Bilateral, NORMAL BREATHING PATTERN. absent: Decreased Breath Sounds, Rales, Rhonchi, Wheezes, Respiratory Distress - Cardiovascular Exam Cardiovascular Exam: REGULAR RHYTHM, +S1, +S2. absent: Bradycardia, Tachycardia , Murmur - GI/Abdominal Exam GI & Abdominal Exam: Soft, Tenderness (mild, epigastric). absent: Distended, Firm - Extremities Exam Extremities Exam: Normal Inspection. absent: Pedal Edema, Tenderness - Neurological Exam Neurological Exam: Alert, Awake, Oriented x3 - Skin Skin Exam: Dry, Intact, Normal Color, Warm Assessment and Plan - Assessment and Plan (Free Text) Assessment: 41 M with PMH of autoimmune IgG4, GERD, autoimmune cholangitis, s/p cholecystectomy, hepatic vein thrombosis on pradaxa [place] [facility] [place] of [place] Hx of Autoimmune IgG4 GERD Hx of autoimmune cholangitis hx of portal vein thrombosis Plan: CT abd/pelvis: no significant interval change. s/p cholecystectomy with stranding and a small amt of fluid anterior the GB fossa. Biliary leak is not excluded. MRCP of abd with and without contrast showed chronic pattern of periportal edema , no thrombosis pain most likely due to decreased steroids creatinine is within normal limit continue Protonix 40mg ivp qd discontinue antibiotics follow up with wood repatcher for portal vein thrombosis advance diet Case reviewed and discussed with my attending
[2017-06-30] MEDS: Calcium-Vit D 250 mg-125 Units Tab UD PO SCH ×2 (10:28→18:01)
[2017-06-30] MEDS: cefTRIAXone 1 gm 1 GM/100 ML BAG IVPB SCH (10:28)
--- NOTE | 2017-06-30 10:45 | MRI ---
PROCEDURE: MRI Abdomen with and without contrast HISTORY: Abdominal pain COMPARISON: Previous CT studies including 10/14/2016 and 06/28/2017. TECHNIQUE: Multisequence, multiplanar MR images of the abdomen with and without gadolinium contrast enhancement. 20 cc of Omniscan FINDINGS: LIVER: There is a chronic pattern of periportal edema and heterogeneous signal intensity in the liver without a discrete lesion. There is no evidence of thrombosis of the portal or hepatic veins. GALLBLADDER: The gallbladder has been removed. There are no common duct stones. The common duct is within normal limits of size. SPLEEN: Unremarkable. PANCREAS: Unremarkable. ADRENALS: Unremarkable. KIDNEYS: Unremarkable. AORTA: No aneurysm. ASCITES: None. PERITONEUM: Unremarkable. LYMPH NODES: Unremarkable. OTHER FINDINGS: None. IMPRESSION: There is a chronic pattern of periportal edema and heterogeneous signal intensity in the liver without a discrete lesion. There is no evidence of thrombosis of the portal or hepatic veins.
--- NOTE | 2017-06-30 13:56 | CP.PCM.PN ---
<ClintHectorsully - Last Filed: 06/30/17 14:43> Subjective - Date & Time of Evaluation Date of Evaluation: 06/30/17 Time of Evaluation: 13:56 - Subjective Subjective: Hospitalist Service Patient seen and examined. Patient complains of upper quadrant abdominal pain. Patient request soft diet as well as his pain medication. Nurse reports no events overnight. Objective - Vital Signs/Intake and Output Vital Signs (last 24 hours): Temp Pulse Resp BP Pulse Ox 98.2 F 61 20 118/79 98 06/30/17 08:30 06/30/17 08:30 06/30/17 08:30 06/30/17 08:30 06/30/17 08:30 Intake and Output: 06/30/17 06/30/17 06:59 18:59 Intake Total 910 Balance 910 - Medications Medications: Current Medications Calcium/Vitamin D (Oscal-D 250 Mg-125 Units Tab) 1 tab PO BID [facility] Last Admin: 06/30/17 10:28 Dose: 1 tab Dabigatran (Pradaxa) 150 mg PO BID [facility] PRN Reason: Protocol Last Admin: 06/30/17 10:28 Dose: 150 mg Hydromorphone HCl (Dilaudid) 0.5 mg IVP Q6H PRN PRN Reason: Pain, severe (8-10) Metronidazole (Flagyl) 500 mg in 100 mls @ 100 mls/hr IVPB Q8 [facility] PRN Reason: Protocol Last Admin: 06/30/17 05:40 Dose: 100 mls/hr Ceftriaxone Sodium (Rocephin 1 Gram Ivpb) 1 gm in 100 mls @ 100 mls/hr IVPB DAILY [facility] PRN Reason: Protocol Last Admin: 06/30/17 10:28 Dose: 100 mls/hr Ondansetron HCl (Zofran Inj) 4 mg IVP Q6H PRN PRN Reason: Nausea/Vomiting Oxycodone HCl (Oxycodone Immediate Release Tab) 10 mg PO Q6 PRN PRN Reason: Pain, moderate (4-7) Pantoprazole Sodium (Protonix Ec Tab) 40 mg PO ACB [facility] Prednisone (Prednisone Tab) 10 mg PO BID [facility] Last Admin: 06/30/17 10:28 Dose: 10 mg Sucralfate (Carafate Tab) 1 gm PO ACHS [facility] Last Admin: 06/30/17 11:57 Dose: Not Given Ursodiol (Actigall) 300 mg PO BID [facility] Last Admin: 06/30/17 10:28 Dose: 300 mg - Labs Labs: 06/30/17 07:00 06/30/17 07:00 PT 16.1 SECONDS (9.4-12.5) H 06/28/17 04:20 INR 1.40 (0.93-1.08) H 06/28/17 04:20 APTT 36.1 Seconds (25.1-36.5) 06/28/17 04:20 - Constitutional Appears: Well, Non-toxic - Head Exam Head Exam: ATRAUMATIC, NORMOCEPHALIC - Eye Exam Eye Exam: EOMI, Normal appearance - ENT Exam ENT Exam: Mucous Membranes Moist - Neck Exam Neck Exam: Normal Inspection - Respiratory Exam Respiratory Exam: Clear to Ausculation Bilateral, NORMAL BREATHING PATTERN. absent: Accessory Muscle Use - Cardiovascular Exam Cardiovascular Exam: RRR, +S1, +S2 - GI/Abdominal Exam GI & Abdominal Exam: Soft, Normal Bowel Sounds - Extremities Exam Extremities Exam: Normal Capillary Refill, Normal Inspection. absent: Calf Tenderness - Back Exam Back Exam: NORMAL INSPECTION. absent: CVA tenderness (L), CVA tenderness (R) - Neurological Exam Neurological Exam: Alert, Awake, Oriented x3 - Psychiatric Exam Psychiatric exam: Normal Affect, Normal Mood - Skin Skin Exam: Dry, Intact, Normal Color, Warm Assessment and Plan - Assessment and Plan (Free Text) Assessment: 41 year old male with PMH of autoimmune IgG4, GERD, autoimmune cholangitis, s/p cholecystectomy, hepatic vein thrombosis on pradaxa [place] [facility] [place] of abdominal pain that started the night before admission. Plan: Abdominal pain -CT abd/pelvis: no significant interval change. s/p cholecystectomy with stranding and a small amt of fluid anterior the GB fossa. Biliary leak is not excluded. Clinical correlation and f/u recommended. Stable mild intra-and- extrahepatic biliary ductal dilatation. Stable mild periportal edema. -Dilaudid 0.5 mg ivp q6 prn severe pain -Oxycodone 10mg po q6 prn moderate pain -Zofran 4mg ivp q6 prn nausea/vomiting -Protonix 40mg ivp qd -Diet advanced to altered hepatic/GI diet starting with dinner 06/30/2017; will monitor for nausea and vomiting -GI consult Dr. Santo, appreciate recommendations. - MRCP with and without contrast demonstrates chronic pattern of periportal edema and heterogenous signal intensity in the liver without a discrete lesion. There is no evidence of thrombosis of the portal or hepatic veins - Abdominal US ordered, pending read Hx of Autoimmune IgG4 -continue home med prednisone 10mg po bid - Circuit Manager office contacted # [phone], left message and call back number, but no response as of yet. Hx of GERD -continue home med carafate 1gm po achs Hx of autoimmune cholangitis -continue home med ursodiol 300mg po bid Hx of hepatic vein thrombosis -continue home med pradaxa 150mg po bid Hx of low vit D -continue home med calcium/vit D 1 tab po bid GI ppx: Protonix 40mg ivp qd DVT ppx: SCDs, patient on pradaxa at home Diet: Full-Liquid diet Discussed with Dr. Tasiha Jaramillo PGY1 <Silvano Lao - Last Filed: 07/01/17 16:51> Objective - Vital Signs/Intake and Output Vital Signs (last 24 hours): Temp Pulse Resp BP Pulse Ox 98.4 F 99 H 20 130/86 99 07/01/17 15:16 07/01/17 15:16 07/01/17 15:16 07/01/17 15:16 07/01/17 15:16 Intake and Output: 07/01/17 07/01/17 06:59 18:59 Intake Total 480 Output Total 0 Balance 480 - Labs Labs: 07/01/17 07:00 07/01/17 07:00 PT 16.1 SECONDS (9.4-12.5) H 06/28/17 04:20 INR 1.40 (0.93-1.08) H 06/28/17 04:20 APTT 36.1 Seconds (25.1-36.5) 06/28/17 04:20 Attending/Attestation - Attestation I have personally seen and examined this patient.: Yes I have fully participated in the care of the patient.: Yes I have reviewed all pertinent clinical information, including history, physical exam and plan: Yes Notes (Text): I have seen and examined the patient at bedside. Agree with the above note dictated by the resident. Patient continues to be in pain. Discussed with GI team. 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
--- NOTE | 2017-06-30 14:54 | US ---
PROCEDURE: Portal vein duplex ultrasound. CLINICAL HISTORY: Deteriorating liver function. Evaluate for portal vein thrombosis. PHYSICIAN(S): Rufino Murray M.D. FINDINGS: The visualized static parenchyma is relatively normal in appearance. No nodularity or mass is appreciated The extrahepatic portal vein is patent with hepatopetal flow. No sonographic evidence for thrombus or obstruction is seen. The 3 hepatic veins are visualized centrally and patent. The hepatic artery is patent. The spleen is normal in size. No ascites is appreciated in the upper abdomen. IMPRESSION: 1. Patent portal vein with hepatopetal flow.
[2017-06-30] MEDS: HYDROmorphone 0.5 mg/0.5 ml ISec IVP PRN ×2 (15:43→21:13)
[2017-07-01] MEDS: HYDROmorphone 0.5 mg/0.5 ml ISec IVP PRN ×2 (02:29→09:01)
[2017-07-01] MEDS ORDERED: Pantoprazole 40 mg EC Tab PO SCH (07:30)
[2017-07-01 07:35] LABS: BASO # 0.03 K/mm3 (0.0-2.0); BASO % 0.3 % (0.0-3.0); EOS # 0.1 (0.0-0.7); EOS % 0.9 % (1.5-5.0); GRAN # 6.46 (1.4-6.5); GRAN % 66.8 % (50.0-68.0); HEMOGLOBIN 11.3 g/dL (14.0-18.0); LYMPH # 2.1 (1.2-3.4); LYMPH % 21.2 % (22.0-35.0); MEAN CELL VOLUME 80.8 fl (80.0-105.0); MEAN CORPUSCULAR HEMOGLOBIN 24.9 pg (25.0-35.0); MEAN CORPUSCULAR HGB CONC 30.9 g/dl (31.0-37.0); MEAN PLATELET VOLUME 8.8 fl (7.0-11.0); MONO # 1.1 (0.1-0.6); MONO % 10.8 % (1.0-6.0); RBC 4.53 10^6/uL (3.5-6.1); RED CELL DISTRIBUTION WIDTH 16.1 % (11.5-14.5); WHITE BLOOD COUNT 9.7 10^3/ul (4.5-11.0)
[2017-07-01 07:56] LABS: ALB/GLOB RATIO 0.9 (1.1-1.8); ALBUMIN 3.7 g/dL (3.0-4.8); ALT/SGPT 17 U/L (7-56); AST/SGOT 22 U/L (17-59); BLOOD UREA NITROGEN 18 mg/dL (7-21); CALCIUM 9.2 mg/dL (8.4-10.5); GFR AFRICAN-AMERICAN > 60; GFR NON-AFRICAN AMERICAN > 60
[2017-07-01] MEDS: Calcium-Vit D 250 mg-125 Units Tab UD PO SCH (09:00)
--- NOTE | 2017-07-01 11:10 | CP.PCM.PN ---
Subjective - Date & Time of Evaluation Date of Evaluation: 07/01/17 Time of Evaluation: 09:00 - Subjective Subjective: PGY-2 GI progress note Patient was seen and examined at bedside. No acute distress. Patient states that his abd pain located in the epigastric area continues. His diet was advanced yesterday. He was tolerating with mild abd pain. He denies nausea, vomiting, diarrhea and constipation. Patient states that he has an appointment with his GI doctor on Thursday. Objective - Vital Signs/Intake and Output Vital Signs (last 24 hours): Temp Pulse Resp BP Pulse Ox 98.3 F 86 20 131/89 100 07/01/17 08:35 07/01/17 08:35 07/01/17 08:35 07/01/17 08:35 07/01/17 08:35 Intake and Output: 07/01/17 07/01/17 06:59 18:59 Intake Total 480 Output Total 0 Balance 480 - Medications Medications: Current Medications Calcium/Vitamin D (Oscal-D 250 Mg-125 Units Tab) 1 tab PO BID [facility] Last Admin: 07/01/17 09:00 Dose: 1 tab Dabigatran (Pradaxa) 150 mg PO BID [facility] PRN Reason: Protocol Last Admin: 07/01/17 09:00 Dose: 150 mg Ondansetron HCl (Zofran Inj) 4 mg IVP Q6H PRN PRN Reason: Nausea/Vomiting Oxycodone HCl (Oxycodone Immediate Release Tab) 10 mg PO Q6 PRN PRN Reason: Pain, moderate (4-7) Pantoprazole Sodium (Protonix Ec Tab) 40 mg PO ACB [facility] Last Admin: 07/01/17 09:00 Dose: 40 mg Prednisone (Prednisone Tab) 5 mg PO DAILY [facility] Last Admin: 07/01/17 09:00 Dose: 5 mg Sucralfate (Carafate Tab) 1 gm PO ACHS [facility] Last Admin: 07/01/17 09:00 Dose: 1 gm Ursodiol (Actigall) 300 mg PO BID [facility] Last Admin: 07/01/17 09:00 Dose: 300 mg - Labs Labs: 07/01/17 07:00 07/01/17 07:00 PT 16.1 SECONDS (9.4-12.5) H 06/28/17 04:20 INR 1.40 (0.93-1.08) H 06/28/17 04:20 APTT 36.1 Seconds (25.1-36.5) 06/28/17 04:20 - Constitutional Appears: Well, No Acute Distress - Head Exam Head Exam: ATRAUMATIC, NORMOCEPHALIC - Eye Exam Eye Exam: EOMI, Normal appearance - ENT Exam ENT Exam: Mucous Membranes Moist - Respiratory Exam Respiratory Exam: Clear to Ausculation Bilateral, NORMAL BREATHING PATTERN. absent: Decreased Breath Sounds, Rales, Rhonchi, Wheezes, Respiratory Distress - Cardiovascular Exam Cardiovascular Exam: REGULAR RHYTHM, +S1, +S2. absent: Bradycardia, Tachycardia , Murmur - GI/Abdominal Exam GI & Abdominal Exam: Soft, Tenderness, Normal Bowel Sounds. absent: Distended, Firm, Guarding - Extremities Exam Extremities Exam: Normal Inspection. 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 s/p cholecystectomy with stranding and a small amt of fluid anterior the GB fossa. Biliary leak is not excluded. MRCP of abd with and without contrast showed chronic pattern of periportal edema , no thrombosis pain most likely due to decreased steroids continue Protonix 40mg ivp qd discontinued antibiotics follow up with supervisor wet room for portal vein thrombosis advance diet to regular increase steroids to 20mg patient is instructed to follow up with his surfacing technician on Thursday Case reviewed and discussed with my attending
--- NOTE | 2017-07-01 12:06 | CP.PCM.DIS ---
<ClintHectorsully - Last Filed: 07/01/17 16:03> Provider - Provider Date of Admission: 06/29/17 10:36 Attending physician: Silvano Lao MD Consults: Dr. Santo Time Spent in preparation of Discharge (in minutes): 50 Hospital Course - Lab Results Lab Results: Most Recent Lab Values WBC 9.7 10^3/ul (4.5-11.0) 07/01/17 07:00 RBC 4.53 10^6/uL (3.5-6.1) 07/01/17 07:00 Hgb 11.3 g/dL (14.0-18.0) L 07/01/17 07:00 Hct 36.6 % (42.0-52.0) L 07/01/17 07:00 MCV 80.8 fl (80.0-105.0) 07/01/17 07:00 MCH 24.9 pg (25.0-35.0) L 07/01/17 07:00 MCHC 30.9 g/dl (31.0-37.0) L 07/01/17 07:00 RDW 16.1 % (11.5-14.5) H 07/01/17 07:00 Plt Count 423 10^3/uL (120.0-450.0) 07/01/17 07:00 MPV 8.8 fl (7.0-11.0) 07/01/17 07:00 Gran % 66.8 % (50.0-68.0) 07/01/17 07:00 Lymph % (Auto) 21.2 % (22.0-35.0) L 07/01/17 07:00 [place] % (Auto) 10.8 % (1.0-6.0) H 07/01/17 07:00 Eos % (Auto) 0.9 % (1.5-5.0) L 07/01/17 07:00 Baso % (Auto) 0.3 % (0.0-3.0) 07/01/17 07:00 Gran # 6.46 (1.4-6.5) 07/01/17 07:00 Lymph # (Auto) 2.1 (1.2-3.4) 07/01/17 07:00 [place] # (Auto) 1.1 (0.1-0.6) H 07/01/17 07:00 Eos # (Auto) 0.1 (0.0-0.7) 07/01/17 07:00 Baso # (Auto) 0.03 K/mm3 (0.0-2.0) 07/01/17 07:00 PT 16.1 SECONDS (9.4-12.5) H 06/28/17 04:20 INR 1.40 (0.93-1.08) H 06/28/17 04:20 APTT 36.1 Seconds (25.1-36.5) 06/28/17 04:20 pO2 143 mm/Hg (30-55) H 06/28/17 04:20 VBG pH 7.46 (7.32-7.43) H 06/28/17 04:20 VBG pCO2 41.0 (40-60) 06/28/17 04:20 VBG HCO3 29.2 mmol/l (21-28) H 06/28/17 04:20 VBG Total CO2 30.5 mmol.L (22-28) H 06/28/17 04:20 VBG O2 Sat (Calc) 100.1 % (40-65) H 06/28/17 04:20 VBG Base Excess 4.9 mmol/L (0.0-2.0) H 06/28/17 04:20 VBG Potassium 3.6 mmol/L (3.6-5.2) 06/28/17 04:20 Sodium 138.0 mmol/L (132-148) 06/28/17 04:20 Chloride 106.0 mmol/L (98-107) 06/28/17 04:20 Glucose 103 mg/dl (75-110) 06/28/17 04:20 Lactate 1.3 mmol/L (0.7-2.1) 06/28/17 04:20 FiO2 21.0 % 06/28/17 04:20 Sodium 144 mmol/L (132-148) 07/01/17 07:00 Potassium 3.7 mmol/L (3.6-5.0) 07/01/17 07:00 Chloride 103 mmol/L (98-107) 07/01/17 07:00 Carbon Dioxide 29 mmol/L (21-33) 07/01/17 07:00 Anion Gap 15 (10-20) 07/01/17 07:00 BUN 18 mg/dL (7-21) 07/01/17 07:00 Creatinine 1.0 mg/dl (0.8-1.5) 07/01/17 07:00 Est GFR ( Amer) > 60 07/01/17 07:00 Est GFR (Non-Af Amer) > 60 07/01/17 07:00 Random Glucose 80 mg/dL (70-110) 07/01/17 07:00 Calcium 9.2 mg/dL (8.4-10.5) 07/01/17 07:00 Phosphorus 3.6 mg/dL (2.5-4.5) 06/28/17 04:20 Magnesium 1.8 mg/dL (1.7-2.2) 06/28/17 04:20 Total Bilirubin 0.5 mg/dL (0.2-1.3) 07/01/17 07:00 AST 22 U/L (17-59) 07/01/17 07:00 ALT 17 U/L (7-56) 07/01/17 07:00 Alkaline Phosphatase 110 U/L (38-126) 07/01/17 07:00 Total Protein 7.9 g/dL (5.8-8.3) 07/01/17 07:00 Albumin 3.7 g/dL (3.0-4.8) 07/01/17 07:00 Globulin 4.3 gm/dL 07/01/17 07:00 Albumin/Globulin Ratio 0.9 (1.1-1.8) L 07/01/17 07:00 Lipase 46 U/L (23-300) 06/28/17 07:00 Venous Blood Potassium 3.6 mmol/L (3.6-5.2) 06/28/17 04:20 - Hospital Course Hospital Course: 41 year old male with PMH of possible autoimmune IgG4, GERD, fibrosclerosing cholangitis, s/p cholecystectomy, 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 His labs were unremarkable and remained so throughout his hospital cours. He did have a slight leukocytosis due to steroid use, that dropped in the normal range when his Prednisone dose was reduced. This was done to assess if the chronic steroids might have been causing some gastritis-type syptoms given the patient had diffuse upper quandrant abdominal pain. He was worked up extensively with MRCP and abdominal US for his abdominal pain and treated with antibiotics at the behest of GI (though this was later rescinded). The patients MRCP demonstrated a chronic pattern of periportal edema and heterogenous signal intensity in the liver without a discrete lesion. There is no evidence of thrombosis of the portal or hepatic veins. Important to note, that the patient' s steroids were recently tapered down by his Seed Expert that is treating him for fibrosclerosing cholangitis. Multiple attempts were made to reach his Seed Expert, but all attempts were unsuccessful. His diet was advanced as tolerated and he was treated with IV pain medications and antiemetics. The patient eventually was discharged with the below written instructions and prescriptions. - Date & Time of H&P Date of H&P: 07/01/17 Time of H&P: 16:08 Discharge Exam - Head Exam Head Exam: ATRAUMATIC, NORMOCEPHALIC - Eye Exam Eye Exam: EOMI, Normal appearance - Neck Exam Neck exam: Normal Inspection - Respiratory Exam Respiratory Exam: Clear to PA & Lateral, NORMAL BREATHING PATTERN. absent: Accessory Muscle Use - Cardiovascular Exam Cardiovascular Exam: RRR, +S1, +S2 - GI/Abdominal Exam GI & Abdominal Exam: Normal Bowel Sounds - Extremities Exam Extremities exam: normal inspection - Back Exam Back exam: NORMAL INSPECTION. absent: CVA tenderness (L), CVA tenderness (R) - Neurological Exam Neurological exam: Alert, CN II-XII Intact, Oriented x3 - Psychiatric Exam Psychiatric exam: Normal Affect, Normal Mood - Skin Skin Exam: Dry, Intact, Normal Color, Warm Discharge Plan - Discharge Medications Prescriptions: predniSONE [predniSONE Tab] 20 mg PO DAILY #7 tab - Follow Up Plan Condition: STABLE Disposition: HOME/ ROUTINE Instructions: Pancreatitis, Acute Abdomen (Belly Pain), Adult (DC), Acid Reflux (Gastroesophageal Reflux Disease) in Adults, Acute Abdominal Pain (DC), Acute Abdominal Pain (GEN) Additional Instructions: PLEASE FOLLOW UP WITH PRIMARY MEDICAL DOCTOR 1) Patient to follow up with Seed Expert on Thursday07/03/17. 2) Patient to take any medications as directed, unless otherwise indicated. <Silvano Lao B - Last Filed: 07/01/17 16:54> Provider - Provider Date of Admission: 06/29/17 10:36 Attending physician: Silvano Lao MD Hospital Course - Lab Results Lab Results: Most Recent Lab Values WBC 9.7 10^3/ul (4.5-11.0) 07/01/17 07:00 RBC 4.53 10^6/uL (3.5-6.1) 07/01/17 07:00 Hgb 11.3 g/dL (14.0-18.0) L 07/01/17 07:00 Hct 36.6 % (42.0-52.0) L 07/01/17 07:00 MCV 80.8 fl (80.0-105.0) 07/01/17 07:00 MCH 24.9 pg (25.0-35.0) L 07/01/17 07:00 MCHC 30.9 g/dl (31.0-37.0) L 07/01/17 07:00 RDW 16.1 % (11.5-14.5) H 07/01/17 07:00 Plt Count 423 10^3/uL (120.0-450.0) 07/01/17 07:00 MPV 8.8 fl (7.0-11.0) 07/01/17 07:00 Gran % 66.8 % (50.0-68.0) 07/01/17 07:00 Lymph % (Auto) 21.2 % (22.0-35.0) L 07/01/17 07:00 [place] % (Auto) 10.8 % (1.0-6.0) H 07/01/17 07:00 Eos % (Auto) 0.9 % (1.5-5.0) L 07/01/17 07:00 Baso % (Auto) 0.3 % (0.0-3.0) 07/01/17 07:00 Gran # 6.46 (1.4-6.5) 07/01/17 07:00 Lymph # (Auto) 2.1 (1.2-3.4) 07/01/17 07:00 [place] # (Auto) 1.1 (0.1-0.6) H 07/01/17 07:00 Eos # (Auto) 0.1 (0.0-0.7) 07/01/17 07:00 Baso # (Auto) 0.03 K/mm3 (0.0-2.0) 07/01/17 07:00 PT 16.1 SECONDS (9.4-12.5) H 06/28/17 04:20 INR 1.40 (0.93-1.08) H 06/28/17 04:20 APTT 36.1 Seconds (25.1-36.5) 06/28/17 04:20 pO2 143 mm/Hg (30-55) H 06/28/17 04:20 VBG pH 7.46 (7.32-7.43) H 06/28/17 04:20 VBG pCO2 41.0 (40-60) 06/28/17 04:20 VBG HCO3 29.2 mmol/l (21-28) H 06/28/17 04:20 VBG Total CO2 30.5 mmol.L (22-28) H 06/28/17 04:20 VBG O2 Sat (Calc) 100.1 % (40-65) H 06/28/17 04:20 VBG Base Excess 4.9 mmol/L (0.0-2.0) H 06/28/17 04:20 VBG Potassium 3.6 mmol/L (3.6-5.2) 06/28/17 04:20 Sodium 138.0 mmol/L (132-148) 06/28/17 04:20 Chloride 106.0 mmol/L (98-107) 06/28/17 04:20 Glucose 103 mg/dl (75-110) 06/28/17 04:20 Lactate 1.3 mmol/L (0.7-2.1) 06/28/17 04:20 FiO2 21.0 % 06/28/17 04:20 Sodium 144 mmol/L (132-148) 07/01/17 07:00 Potassium 3.7 mmol/L (3.6-5.0) 07/01/17 07:00 Chloride 103 mmol/L (98-107) 07/01/17 07:00 Carbon Dioxide 29 mmol/L (21-33) 07/01/17 07:00 Anion Gap 15 (10-20) 07/01/17 07:00 BUN 18 mg/dL (7-21) 07/01/17 07:00 Creatinine 1.0 mg/dl (0.8-1.5) 07/01/17 07:00 Est GFR ( Amer) > 60 07/01/17 07:00 Est GFR (Non-Af Amer) > 60 07/01/17 07:00 Random Glucose 80 mg/dL (70-110) 07/01/17 07:00 Calcium 9.2 mg/dL (8.4-10.5) 07/01/17 07:00 Phosphorus 3.6 mg/dL (2.5-4.5) 06/28/17 04:20 Magnesium 1.8 mg/dL (1.7-2.2) 06/28/17 04:20 Total Bilirubin 0.5 mg/dL (0.2-1.3) 07/01/17 07:00 AST 22 U/L (17-59) 07/01/17 07:00 ALT 17 U/L (7-56) 07/01/17 07:00 Alkaline Phosphatase 110 U/L (38-126) 07/01/17 07:00 Total Protein 7.9 g/dL (5.8-8.3) 07/01/17 07:00 Albumin 3.7 g/dL (3.0-4.8) 07/01/17 07:00 Globulin 4.3 gm/dL 07/01/17 07:00 Albumin/Globulin Ratio 0.9 (1.1-1.8) L 07/01/17 07:00 Lipase 46 U/L (23-300) 06/28/17 07:00 Venous Blood Potassium 3.6 mmol/L (3.6-5.2) 06/28/17 04:20 Attending/Attestation - Attestation I have personally seen and examined this patient.: Yes I have fully participated in the care of the patient.: Yes I have reviewed all pertinent clinical information, including history, physical exam and plan: Yes Notes (Text): I have seen and examined the patient at bedside. Agree with the above note dictated by the resident. Patient feels much better. Discussed with Dr Santo. Plan to increase steroids at this time. Awaiting call back from his certified medical aide. Advised patient to follow up with certified medical aide in 2 days and also follow up with hogshead mat assembler.
[2017-07-01 15:17] VITALS: BP 130/86; PULSE 99; TEMP 98.4; O2SAT 99
== END 2017-07-01 16:41 | disposition home or self-care (01) | DRG 392 ==
LOC: ED 03:27 → ERH 07:07 → 5RSO 10:58 → OBSVTOIN 06-29 10:36
PROVIDERS: ADMIT Internal Medicine; ATTEND Hospitalist
DX: K29.70 Gastritis, unspecified, without bleeding (principal); K83.0 Cholangitis; G89.29 Other chronic pain; K21.9 Gastro-esophageal reflux disease without esophagitis; K76.0 Fatty (change of) liver, not elsewhere classified; Z86.718 Personal history of other venous thrombosis and embolism; Z79.01 Long term (current) use of anticoagulants; Z90.49 Acquired absence of other specified parts of digestive tract

== ENCOUNTER 2017-10-18 08:12 | Emergency (ER) | payer OTHER ==
[2017-10-18 08:12] VITALS: BMI 38.0
[2017-10-18 08:23] VITALS: RESP 18
[2017-10-18] MEDS ORDERED: Sodium Chloride 0.9% 1,000 ML IV STA (08:28)
--- NOTE | 2017-10-18 08:34 | ED PDOC ---
Arrival/HPI - General Chief Complaint: Abdominal Pain Time Seen by Provider: 10/18/17 08:19 Historian: Patient - History of Present Illness Narrative History of Present Illness (Text): 10/18/17 08:29 42 year old male, whose past medical history includes IgG stage IV cholangitis, pancreatic lymph nodes, cholecystectomy, who presents to the ED complaining of chronic abdominal pain x 2 days. Patient denies any fever, chills, back pain, neck pain, headache, dizziness, or any other complains. Time/Duration: < week (2 hernandez) Symptom Onset: Gradual Symptom Course: Unchanged Activities at Onset: Light Context: Home Past Medical History - Provider Review Nursing Documentation Reviewed: Yes - Past History Past History: No Previous - Infectious Disease Hx of Infectious Diseases: None - Tetanus Immunization Tetanus Immunization: Unknown - Past Medical History Past Medical History: No Previous - Cardiac Hx Cardiac Disorders: No - Pulmonary Hx Asthma: Yes - Neurological Hx Neurological Disorder: No - HEENT Hx HEENT Disorder: No - Renal Hx Renal Disorder: No - Endocrine/Metabolic Hx Endocrine Disorders: Yes Other/Comment: Inflammation of the pancreas and L side of the Liver, Auto immune disease - Hematological/Oncological Hx Anemia: Yes - Integumentary Hx Dermatological Disorder: No - Musculoskeletal/Rheumatological Hx Musculoskeletal Disorders: No - Gastrointestinal Hx Gall Bladder Disease: Yes (LAP ALTAGRACIA ON 06/06/15) Hx Pancreatitis: Yes - Genitourinary/Gynecological Hx Genitourinary Disorders: No - Psychiatric Hx Psychophysiologic Disorder: No Hx Substance Use: No - Past Surgical History Past Surgical History: No Previous - Surgical History Hx Cholecystectomy: Yes - Anesthesia Hx Anesthesia: Yes Hx Anesthesia Reactions: No Hx Malignant Hyperthermia: No - Suicidal Assessment Feels Threatened In Home Enviroment: No Family/Social History - Physician Review Nursing Documentation Reviewed: Yes Family/Social History: Unknown Family HX Smoking Status: Never Smoked Hx Alcohol Use: No Hx Substance Use: No Hx Substance Use Treatment: No Allergies/Home Meds Allergies/Adverse Reactions: Allergies No Known Allergies Allergy (Verified 10/18/17 08:19) Home Medications: Home Meds Medication Instructions Recorded Confirmed Unobtainable 10/18/17 10/18/17 Review of Systems - Physician Review All systems were reviewed & negative as marked: Yes - Review of Systems Constitutional: Normal Eyes: Normal ENT: Normal Respiratory: Normal. absent: SOB, Cough Cardiovascular: Normal. absent: Chest Pain Gastrointestinal: Abdominal Pain. absent: Diarrhea, Nausea, Vomiting Genitourinary Male: Normal. absent: Dysuria, Frequency Musculoskeletal: Normal. absent: Back Pain, Neck Pain Skin: Normal. absent: Rash Neurological: Normal. absent: Headache, Dizziness Endocrine: Normal Hemo/Lymphatic: Normal Psychiatric: Normal Physical Exam Vital Signs Reviewed: Yes Vital Signs Temp Pulse Resp BP Pulse Ox 10/18/17 09:38 98 F 77 18 139/79 98 10/18/17 08:22 98.7 F 110 H 18 110/72 97 Temperature: Afebrile Blood Pressure: Normal Pulse: Tachycardic Respiratory Rate: Normal Appearance: Positive for: Well-Appearing, Non-Toxic, Comfortable Pain Distress: None Mental Status: Positive for: Alert and Oriented X 3 - Systems Exam Head: Present: Atraumatic, Normocephalic Pupils: Present: PERRL Extroacular Muscles: Present: EOMI Conjunctiva: Present: Normal Mouth: Present: Moist Mucous Membranes Neck: Present: Normal Range of Motion Respiratory/Chest: Present: Clear to Auscultation, Good Air Exchange. No: Respiratory Distress, Accessory Muscle Use Cardiovascular: Present: Regular Rate and Rhythm, Normal S1, S2. No: Murmurs Abdomen: Present: Tenderness (nonfocal tenderness). No: Distention, Peritoneal Signs Back: Present: Normal Inspection Upper Extremity: Present: Normal Inspection. No: Cyanosis, Edema Lower Extremity: Present: Normal Inspection. No: Edema Neurological: Present: GCS=15, CN II-XII Intact, Speech Normal Skin: Present: Warm, Dry, Normal Color. No: Rashes Psychiatric: Present: Alert, Oriented x 3, Normal Insight, Normal Concentration Medical Decision Making ED Course and Treatment: 10/18/17 08:37 Impression: 42 year old female presents to the ED complaining of chronic abdominal pain x 2 days. Plan: -- Labs -- Toradol -- Sodium Chloride -- UA Procedure Notes: 10/18/17 09:09 Patient is in no acute distress. Patient refusing CT and wants to be d/c home. 10/18/17 09:40 upon arrival pt requesting narcotic analgesia, specifially hydromorphone. nj rx reviewd, numerous rx for narcotic. advise will be tx with non narcotic pain meds. pt later observed on phone in nad. tyrel further imaging. 10/18/17 09:41 - Lab Interpretations Lab Results: 10/18/17 08:30 10/18/17 08:30 Lab Results 10/18/17 08:30: Sodium 143, Potassium 3.4 L, Chloride 103, Carbon Dioxide 29, Anion Gap 14, BUN 15, Creatinine 1.0, Est GFR ( Amer) > 60, Est GFR (Non- Af Amer) > 60, Random Glucose 101, Calcium 9.3, Magnesium 1.9, Total Bilirubin 0.8, AST 22, ALT 13, Alkaline Phosphatase 141 H D, Total Protein 8.2, Albumin 3.7, Globulin 4.5, Albumin/Globulin Ratio 0.8 L, Lipase 56 10/18/17 08:30: PT 15.2 H, INR 1.31, APTT 35.2 10/18/17 08:30: WBC 11.6 H, RBC 4.39, Hgb 11.4 L, Hct 36.2 L, MCV 82.5, MCH 26.0 , MCHC 31.5, RDW 15.2 H, Plt Count 341, MPV 9.3, Gran % 62.3, Lymph % (Auto) 25.9, [place] % (Auto) 10.6 H, Eos % (Auto) 1.0 L, Baso % (Auto) 0.2, Gran # 7.21 H , Lymph # (Auto) 3.0, [place] # (Auto) 1.2 H, Eos # (Auto) 0.1, Baso # (Auto) 0.02 - Medication Orders Current Medication Orders: Discontinued Medications Sodium Chloride (Sodium Chloride 0.9%) 1,000 mls @ 1,000 mls/hr IV .Q1H STA Stop: 10/18/17 09:27 Last Admin: 10/18/17 08:47 Dose: 1,000 mls/hr eMAR Start Stop Document 10/18/17 08:47 EAR (Rec: 10/18/17 08:48 EAR [id number]) Intravenous Solution Start Date 10/18/17 Start Time 08:47 End Date 10/18/17 End time 09:45 Total Infusion Time 58 Ketorolac Tromethamine (Toradol) 30 mg IVP STAT STA Stop: 10/18/17 08:29 Last Admin: 10/18/17 08:45 Dose: 30 mg MAR Pain Assessment Document 10/18/17 08:45 EAR (Rec: 10/18/17 08:46 EAR [id number]) Pain Reassessment Is this a pain reassessment? No Sleep Is patient sleeping during reassessment? No Presence of Pain Presence of Pain Yes Pain Scale Used Pain Scale Used Numeric Location Pain Location Body Site Abdomen IVP Administration Document 10/18/17 08:45 EAR (Rec: 10/18/17 08:46 EAR [id number]) Charges for Administration # of IVP Administrations 1 - Scribe Statement The provider has reviewed the documentation as recorded by the Scribe Марина Ashley All medical record entries made by the Scribe were at my direction and personally dictated by me. I have reviewed the chart and agree that the record accurately reflects my personal performance of the history, physical exam, medical decision making, and the department course for this patient. I have also personally directed, reviewed, and agree with the discharge instructions and disposition. Disposition/Present on Arrival - Present on Arrival Any Indicators Present on Arrival: No History of DVT/PE: No History of Uncontrolled Diabetes: No Urinary Catheter: No History of Decub. Ulcer: No History Surgical Site Infection Following: None - Disposition Have Diagnosis and Disposition been Completed?: Yes Diagnosis: Abdominal pain, Drug-seeking behavior Disposition: HOME/ ROUTINE Disposition Time: 09:30 Condition: STABLE Discharge Instructions (ExitCare): Acute Abdomen (Belly Pain) Additional Instructions: please follow up with your doctor/specialist. you are declining additional imaging. return to er with worsening symptoms or concerns. please discuss all results with your doctor Referrals: Count Includes [facility] [Outside] - Follow up with primary [facility] [Outside] - Follow up with primary Yuri Bolanos MD [Staff Provider] - Follow up with primary Forms: [employer] (Hebrew), WORK NOTE
[2017-10-18 08:58] LABS: BASO # 0.02 K/mm3 (0.0-2.0); BASO % 0.2 % (0.0-3.0); EOS # 0.1 (0.0-0.7); GRAN # 7.21 (1.4-6.5); GRAN % 62.3 % (50.0-68.0); HEMOGLOBIN 11.4 g/dL (14.0-18.0); LYMPH % 25.9 % (22.0-35.0); MEAN CELL VOLUME 82.5 fl (80.0-105.0); MEAN CORPUSCULAR HGB CONC 31.5 g/dl (31.0-37.0); MEAN PLATELET VOLUME 9.3 fl (7.0-11.0); MONO # 1.2 (0.1-0.6); MONO % 10.6 % (1.0-6.0); RBC 4.39 10^6/uL (3.5-6.1); RED CELL DISTRIBUTION WIDTH 15.2 % (11.5-14.5); WHITE BLOOD COUNT 11.6 10^3/ul (4.5-11.0)
[2017-10-18 08:59] LABS: INR 1.31; PARTIAL THROMBOPLASTIN TIME 35.2 Seconds (25.1-36.5); PROTHROMBIN TIME 15.2 SECONDS (9.4-12.5)
[2017-10-18 09:02] LABS: ALB/GLOB RATIO 0.8 (1.1-1.8); ALBUMIN 3.7 g/dL (3.0-4.8); ALT/SGPT 13 U/L (7-56); AST/SGOT 22 U/L (17-59); BLOOD UREA NITROGEN 15 mg/dL (7-21); CALCIUM 9.3 mg/dL (8.4-10.5); GFR NON-AFRICAN AMERICAN > 60; LIPASE 56 U/L (23-300)
[2017-10-18 09:39] VITALS: BP 139/79; PULSE 77; TEMP 98; O2SAT 98
== END 2017-10-18 09:38 | disposition home or self-care (01) ==
LOC: ED 08:12
DX: Z76.5 Malingerer [conscious simulation] (principal); R10.9 Unspecified abdominal pain
CPT/HCPCS: 80053; 83690; 83735; 85025; 85610; 85730; 96361; 96374; 99284; J1885; J7030

== ENCOUNTER 2018-01-06 04:28 | Emergency (ER) | payer OTHER ==
[2018-01-06 04:28] VITALS: BMI 38.0
--- NOTE | 2018-01-06 04:57 | ED PDOC ---
Arrival/HPI <Jose Carter - Last Filed: 01/06/18 06:01> - History of Present Illness Narrative History of Present Illness (Text): This is a 42 year old male with PMH of autoimmune IgG4, GERD, pancreatic lymph nodes, fibrosclerosing choleangitis, hepatic vein thrombosis (on pradaxa) who presents for evaluation of abdominal pain for 1 day. Denies fever, chills, shortness of breath, chest pain, n/v/d, hematochezia, melena, urinary changes, hematuria, leg swelling or pain. Pt's last bowel movement was today, which was normal. Pt also reports left sided neck pain which started after waking up this morning. PMD: none Gi: Dr. Ryder ([facility]) Rheumatology: [place] PMH: autoimmune IgG4, GERD, pancreatic lymph nodes, fibrosclerosing choleangitis, hepatic vein thrombosis (on pradaxa) Meds: see MAR Allx: NKDA Social hx: denies etoh, smoking or drug use Time/Duration: Other (1 day) Symptom Onset: Sudden Symptom Course: Worsening <Tyler Chong - Last Filed: 01/06/18 06:40> - General Chief Complaint: Abdominal Pain Time Seen by Provider: 01/06/18 04:35 Past Medical History - Provider Review Nursing Documentation Reviewed: Yes - Past History Past History: No Previous - Infectious Disease Hx of Infectious Diseases: None - Tetanus Immunization Tetanus Immunization: Unknown - Past Medical History Past Medical History: No Previous - Cardiac Hx Cardiac Disorders: No - Pulmonary Hx Asthma: Yes - Neurological Hx Neurological Disorder: No - HEENT Hx HEENT Disorder: No - Renal Hx Renal Disorder: No - Endocrine/Metabolic Hx Endocrine Disorders: Yes Other/Comment: Inflammation of the pancreas and L side of the Liver, Auto immune disease - Hematological/Oncological Hx Anemia: Yes - Integumentary Hx Dermatological Disorder: No - Musculoskeletal/Rheumatological Hx Musculoskeletal Disorders: No - Gastrointestinal Hx Gall Bladder Disease: Yes (LAP ALTAGRACIA ON 06/06/15) Hx Pancreatitis: Yes - Genitourinary/Gynecological Hx Genitourinary Disorders: No - Psychiatric Hx Psychophysiologic Disorder: No Hx Substance Use: No - Past Surgical History Past Surgical History: No Previous - Surgical History Hx Cholecystectomy: Yes - Anesthesia Hx Anesthesia: Yes Hx Anesthesia Reactions: No Hx Malignant Hyperthermia: No - Suicidal Assessment Feels Threatened In Home Enviroment: No <Tyler Chong Filed: 01/06/18 06:40> Family/Social History - Physician Review Nursing Documentation Reviewed: Yes Family/Social History: Unknown Family HX Smoking Status: Never Smoked Hx Alcohol Use: No Hx Substance Use: No Hx Substance Use Treatment: No <Tyler Chong Filed: 01/06/18 06:40> Allergies/Home Meds <Jose Carter Last Filed: 01/06/18 06:01> <Tyler Chong Last Filed: 01/06/18 06:40> Allergies/Adverse Reactions: Allergies No Known Allergies Allergy (Verified 01/06/18 04:43) Home Medications: Home Meds Medication Instructions Recorded Confirmed Unobtainable 10/18/17 10/18/17 Review of Systems - Review of Systems Constitutional: Normal Eyes: Normal ENT: Normal Respiratory: Normal Cardiovascular: Normal Gastrointestinal: Abdominal Pain. absent: Constipation, Diarrhea, Nausea, Vomiting Genitourinary Male: Normal Musculoskeletal: Neck Pain Skin: Normal Neurological: Normal Endocrine: Normal Hemo/Lymphatic: Normal Psychiatric: Normal <Tyler Chong Filed: 01/06/18 06:40> Physical Exam Vital Signs Temp Pulse Resp BP Pulse Ox 01/06/18 04:40 98.4 F 81 18 141/83 97 <Jose Carter Last Filed: 01/06/18 06:01> Vital Signs Reviewed: Yes Temperature: Afebrile Blood Pressure: Normal Pulse: Regular Respiratory Rate: Normal Appearance: Positive for: Non-Toxic, Uncomfortable Pain Distress: Mild Mental Status: Positive for: Alert and Oriented X 3 - Systems Exam Head: Present: Atraumatic, Normocephalic Extroacular Muscles: Present: EOMI Mouth: Present: Moist Mucous Membranes Neck: Present: Paraspinal Tenderness (bilateral cervical paravertebral tenderness and hypertonicity; hypertonicity of kaya trapezius muscles). No: Normal Range of Motion (limited left sided rotation secondary to pain; passive ROM is normal), MIDLINE TENDERNESS Respiratory/Chest: Present: Clear to Auscultation. No: Respiratory Distress, Wheezes, Rales Cardiovascular: Present: Regular Rate and Rhythm, Normal S1, S2 Abdomen: Present: Tenderness (diffuse mild abdominal tenderness), Distention (baseline as per pt), Normal Bowel Sounds. 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 Aware and agree with HPI, clinical findings, plan, and management. Pt, whose past medical history includes autoimmune IgG4, GERD, pancreatic lymph nodes, fibrosclerosing choleangitis, and hepatic vein thrombosis, who presents to the Emergency department complaining of abdominal pain and neck pain. Plan: -- CT Abdomen and Pelvis with IV contrast -- Labs, lipase -- Flexeril -- Toradol -- Reassess and disposition - RAD Interpretation Radiology Orders: 01/06/18 05:49 ABD & PELVIS IV CONTRAST ONLY [CT] Stat - Medication Orders Current Medication Orders: Discontinued Medications Cyclobenzaprine HCl (Flexeril) 10 mg PO STAT STA Stop: 01/06/18 05:05 Last Admin: 01/06/18 05:24 Dose: 10 mg Ketorolac Tromethamine (Toradol) 30 mg IVP STAT STA Stop: 01/06/18 04:54 Last Admin: 01/06/18 05:28 Dose: Not Given Non-Admin Reason: pt refused <Jose Carter - Last Filed: 01/06/18 06:01> ED Course and Treatment: 01/06/18 05:01 CBC, CMP, lipase Pt is requesting morphine or dilaudid for the pain. I instructed him that we do not have dilaudid and pt says to give him morphine. Toradol 30 mg IVP for pain. Pt adamantly refuses toradol and states that only morphine will help. I explained to the pt that the anti-inflammatory will help with the neck pain but he continues to refuse. Flexeril 10 mg PO given for neck hypertonicity and pain. 01/06/18 05:[address] with IV contrast ordered. Pt continues to request morphine specifically. 01/06/18 06:[address] and would like to leave AMA. Prior to signing AMA form, pt eloped. 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 / has examined the patient and agrees with the treatment plan. <Jose Carter - Last Filed: 01/06/18 06:01> Disposition/Present on Arrival <Jose Carter - Last Filed: 01/06/18 06:01> - Present on Arrival Any Indicators Present on Arrival: No History of DVT/PE: No History of Uncontrolled Diabetes: No Urinary Catheter: No History of Decub. Ulcer: No History Surgical Site Infection Following: None - Disposition Have Diagnosis and Disposition been Completed?: Yes Disposition Time: 06:39 <Tyler Chong - Last Filed: 01/06/18 06:40> - Disposition Diagnosis: Abdominal pain Disposition: ELOPEMENT - ER ONLY Condition: STABLE Forms: [employer] (Kosovan)
[2018-01-06 05:30] VITALS: BP 141/83; PULSE 81; RESP 18; TEMP 98.4; O2SAT 97
[2018-01-06 05:43] LABS: BASO # 0.02 K/mm3 (0.0-2.0); BASO % 0.2 % (0.0-3.0); EOS # 0.1 (0.0-0.7); GRAN # 6.19 (1.4-6.5); GRAN % 61.8 % (50.0-68.0); HEMOGLOBIN 12.1 g/dL (14.0-18.0); LYMPH # 2.8 (1.2-3.4); MEAN CELL VOLUME 84.5 fl (80.0-105.0); MEAN CORPUSCULAR HEMOGLOBIN 26.1 pg (25.0-35.0); MEAN CORPUSCULAR HGB CONC 30.9 g/dl (31.0-37.0); MEAN PLATELET VOLUME 9.1 fl (7.0-11.0); MONO # 0.9 (0.1-0.6); RBC 4.64 10^6/uL (3.5-6.1); RED CELL DISTRIBUTION WIDTH 15.5 % (11.5-14.5)
== END 2018-01-06 06:30 | disposition left against medical advice (07) ==
LOC: ED 04:28
DX: R10.9 Unspecified abdominal pain (principal); K21.9 Gastro-esophageal reflux disease without esophagitis

== ENCOUNTER 2018-04-21 21:14 | Emergency (ER) | payer OTHER ==
[2018-04-21 21:18] VITALS: BMI 35.7
[2018-04-21 21:29] VITALS: BP 135/91; PULSE 91; RESP 18; TEMP 98.2; O2SAT 97
[2018-04-21] MEDS ORDERED: Morphine 2 mg/ml ISec IVP STA ×2 (21:34→22:45)
[2018-04-21] MEDS ORDERED: Sodium Chloride 0.9% 1,000 ML IV SCH (21:45)
--- NOTE | 2018-04-21 21:46 | ED PDOC ---
Arrival/HPI - General Chief Complaint: Abdominal Pain Historian: Patient - History of Present Illness Narrative History of Present Illness (Text): 04/21/18 21:40 Mateusz Cardenas is a 41 year old male, whose past medical history includes autoimmune cholecystitis/IgG stage IV cholangitis, liver cyst, and fatty liver, who presents to the ED complaining of chronic abdominal pain tonight. Patient has a history of chronic abdominal pain and states he ran out of his Oxycodone and is requesting a refill until he can see his physician. Patient denies any fever, chills, chest pain, shortness of breath, nausea, vomiting, diarrhea, urinary symptoms, back pain, neck pain, headache, dizziness, or any other complaints. Symptom Onset: Gradual Symptom Course: Unchanged Activities at Onset: Light Context: Home Past Medical History - Provider Review Nursing Documentation Reviewed: Yes - Past History Past History: No Previous - Infectious Disease Hx of Infectious Diseases: None - Tetanus Immunization Tetanus Immunization: Unknown - Past Medical History Past Medical History: No Previous - Cardiac Hx Cardiac Disorders: No - Pulmonary Hx Asthma: Yes - Neurological Hx Neurological Disorder: No - HEENT Hx HEENT Disorder: No - Renal Hx Renal Disorder: No - Endocrine/Metabolic Hx Endocrine Disorders: Yes Other/Comment: Inflammation of the pancreas and L side of the Liver, Auto immune disease - Hematological/Oncological Hx Anemia: Yes - Integumentary Hx Dermatological Disorder: No - Musculoskeletal/Rheumatological Hx Musculoskeletal Disorders: No - Gastrointestinal Hx Gall Bladder Disease: Yes (LAP ALTAGRACIA ON 06/06/15) Hx Pancreatitis: Yes - Genitourinary/Gynecological Hx Genitourinary Disorders: No - Psychiatric Hx Psychophysiologic Disorder: No Hx Substance Use: No - Past Surgical History Past Surgical History: No Previous - Surgical History Hx Cholecystectomy: Yes - Anesthesia Hx Anesthesia: Yes Hx Anesthesia Reactions: No Hx Malignant Hyperthermia: No - Suicidal Assessment Feels Threatened In Home Enviroment: No Family/Social History - Physician Review Nursing Documentation Reviewed: Yes Family/Social History: Unknown Family HX Smoking Status: Never Smoked Hx Alcohol Use: No Hx Substance Use: No Hx Substance Use Treatment: No Allergies/Home Meds Allergies/Adverse Reactions: Allergies No Known Allergies Allergy (Verified 01/06/18 04:43) Home Medications: Home Meds Medication Instructions Recorded Confirmed Unobtainable 10/18/17 04/21/18 Review of Systems - Physician Review All systems were reviewed & negative as marked: Yes - Review of Systems Constitutional: Normal. absent: Fevers Eyes: Normal ENT: Normal Respiratory: Normal. absent: SOB, Cough Cardiovascular: Normal. absent: Chest Pain Gastrointestinal: Abdominal Pain Genitourinary Male: Normal. absent: Dysuria, Frequency, Hematuria, Urinary Output Changes Musculoskeletal: Normal. absent: Back Pain, Neck Pain Skin: Normal. absent: Rash Neurological: Normal. absent: Headache, Dizziness Endocrine: Normal Hemo/Lymphatic: Normal Psychiatric: Normal Physical Exam Vital Signs Reviewed: Yes Vital Signs Temp Pulse Resp BP Pulse Ox 04/21/18 21:22 98.2 F 91 H 18 135/91 H 97 Temperature: Afebrile Blood Pressure: Normal Pulse: Regular Respiratory Rate: Normal Appearance: Positive for: Well-Appearing, Non-Toxic, Comfortable Pain Distress: None Mental Status: Positive for: Alert and Oriented X 3 - Systems Exam Head: Present: Atraumatic, Normocephalic Pupils: Present: PERRL Extroacular Muscles: Present: EOMI Conjunctiva: Present: Normal Mouth: Present: Moist Mucous Membranes Neck: Present: Normal Range of Motion Respiratory/Chest: Present: Clear to Auscultation, Good Air Exchange. No: Respiratory Distress, Accessory Muscle Use Cardiovascular: Present: Regular Rate and Rhythm, Normal S1, S2. No: Murmurs Abdomen: No: Tenderness, Distention, Peritoneal Signs Back: Present: Normal Inspection Upper Extremity: Present: Normal Inspection. No: Cyanosis, Edema Lower Extremity: Present: Normal Inspection. No: Edema Neurological: Present: GCS=15, CN II-XII Intact, Speech Normal Skin: Present: Warm, Dry, Normal Color. No: Rashes Psychiatric: Present: Alert, Oriented x 3, Normal Insight, Normal Concentration Medical Decision Making ED Course and Treatment: 04/21/18 21:40 Impression: 42 year old male complaining of chronic abdominal pain, is requesting Oxycodone refill. Plan: -- Labs, lipase -- UA -- IV fluids -- Zofran -- Morphine -- Reassess and disposition Prior Visits: Notes and results from previous visits were reviewed. Progress Notes: [place] [employer] reviewed, pt received 90 tablets of Oxycodone HCL 10mg on 04/03/2017. D iscussed [facility] [place] policy with pt. - Medication Orders Current Medication Orders: Sodium Chloride (Sodium Chloride 0.9%) 1,000 mls @ 80 mls/hr IV .[id number] PAWEL Discontinued Medications Morphine Sulfate (Morphine) 2 mg IVP STAT STA Stop: 04/21/18 21:35 Ondansetron HCl (Zofran Inj) 4 mg IVP STAT STA Stop: 04/21/18 21:35 - Scribe Statement The provider has reviewed the documentation as recorded by the Gabeibsheng Parra Provider Scribe Attestation: All medical record entries made by the Scribe were at my direction and personally dictated by me. I have reviewed the chart and agree that the record accurately reflects my personal performance of the history, physical exam, medical decision making, and the department course for this patient. I have also personally directed, reviewed, and agree with the discharge instructions and disposition. Disposition/Present on Arrival - Present on Arrival Any Indicators Present on Arrival: No History of DVT/PE: No History of Uncontrolled Diabetes: No Urinary Catheter: No History of Decub. Ulcer: No History Surgical Site Infection Following: None - Disposition Have Diagnosis and Disposition been Completed?: Yes Diagnosis: Abdominal pain Disposition: HOME/ ROUTINE Disposition Time: 23:20 Condition: IMPROVED Discharge Instructions (ExitCare): Chronic Pain (DC) Additional Instructions: follow up with pmd Referrals: Julian Cruz MD [Primary Care Provider] - Follow up with primary Forms: [employer] (Turkmen), WORK NOTE
[2018-04-21 22:04] LABS: BASO # 0.02 K/mm3 (0.0-2.0); BASO % 0.2 % (0.0-3.0); EOS # 0.1 (0.0-0.7); EOS % 0.7 % (1.5-5.0); HEMOGLOBIN 11.3 g/dL (14.0-18.0); LYMPH # 2.9 (1.2-3.4); LYMPH % 26.8 % (22.0-35.0); MEAN CELL VOLUME 85.5 fl (80.0-105.0); MEAN CORPUSCULAR HEMOGLOBIN 25.7 pg (25.0-35.0); MEAN CORPUSCULAR HGB CONC 30.1 g/dl (31.0-37.0); MEAN PLATELET VOLUME 8.9 fl (7.0-11.0); MONO # 0.6 (0.1-0.6); MONO % 5.3 % (1.0-6.0); RBC 4.4 10^6/uL (3.5-6.1); RED CELL DISTRIBUTION WIDTH 15.6 % (11.5-14.5); WHITE BLOOD COUNT 10.7 10^3/uL (4.5-11.0)
[2018-04-21 22:15] LABS: ALB/GLOB RATIO 0.8 (1.1-1.8); ALBUMIN 3.9 g/dL (3.0-4.8); ALT/SGPT < 6 U/L (7-56); AST/SGOT 23 U/L (17-59); BLOOD UREA NITROGEN 21 mg/dL (7-21); CALCIUM 9.5 mg/dL (8.4-10.5); GFR NON-AFRICAN AMERICAN > 60; LIPASE 129 U/L (23-300)
== END 2018-04-21 23:18 | disposition home or self-care (01) ==
LOC: ED 21:14
DX: R10.9 Unspecified abdominal pain (principal)
CPT/HCPCS: 80053; 83690; 85025; 96374; 96375; 96376; 99283; J2270; J2405; J7030